=== PATIENT | female | born 1970 | race Caucasian/White ===

== ENCOUNTER → 2016-08-29 | Outpatient (CLI) | payer BC ==
--- NOTE | 2016-08-29 13:21 | REP ---
LUMBOSACRAL SPINE SERIES WITH FLEXION AND EXTENSION: Seven views of the lumbosacral spine performed. There is no compression fracture. There is normal lumbar lordosis with no subluxation. There is no spondylosis of spondylolisthesis. Disc spaces are well preserved. Posterior elements are intact. There is a stent in the region of the right common iliac vessels. IMPRESSION: Negative lumbosacral spine series. Signed by Greg Lacy MD 08/29/2016 03:31 P
== END ==
LOC: M SMT 11:32
PROVIDERS: ATTEND Physician Assistant
DX: M54.5 Low back pain (principal)

== ENCOUNTER → 2016-09-21 | Outpatient (REF) | payer BC ==
[2016-09-21 13:43] LABS: VITAMIN B12 LEVEL 847 PG/ML (247-911)
[2016-09-26 00:06] LABS: Lyme Disease IgG/IgM Antibodie <0.91 ISR (0.00-0.90); Lyme Disease IgM Ab Quantitati <0.80 index (0.00-0.79); SJOGREN'S ANTI SS-A <0.2 AI (0.0-0.9); SJOGREN'S ANTI SS-B <0.2 AI (0.0-0.9)
== END ==
LOC: M LABNEURO 12:58
PROVIDERS: ATTEND Psychiatry & Neurology Neurology
DX: G35 Multiple sclerosis (principal)

== ENCOUNTER → 2017-04-03 | Outpatient (REF) | payer BC | LOC: M LAB REF 17:06 | PROVIDERS: ATTEND Physician Assistant Medical | DX: R30.0 Dysuria (principal) ==

== ENCOUNTER → 2017-05-24 | Outpatient (REF) | payer BC | LOC: M LAB REF 18:49 | PROVIDERS: ATTEND Family Medicine | DX: Z01.419 Encounter for gynecological examination (general) (routine) without abnormal findings (principal); Z11.51 Encounter for screening for human papillomavirus (HPV) ==

== ENCOUNTER → 2018-01-28 | Outpatient (CLI) | payer BC | LOC: M RAD 10:26 | DX: M51.26 Other intervertebral disc displacement, lumbar region (principal) | CPT/HCPCS: 72148 ==

== ENCOUNTER → 2018-09-16 | Outpatient (REF) | payer BC, OTHER, SELFPAY | LOC: M SFHCPLAZ 16:58 | PROVIDERS: ATTEND Dermatology | DX: D48.5 Neoplasm of uncertain behavior of skin (principal) ==

== ENCOUNTER → 2019-03-31 | Outpatient (REF) | payer BC | LOC: M LAB REF 18:43 | PROVIDERS: ATTEND Physician Assistant | DX: N39.0 Urinary tract infection, site not specified (principal) ==

== ENCOUNTER → 2019-09-24 | Outpatient (REF) | payer BC | LOC: M LAB REF 16:41 | PROVIDERS: ATTEND Physician Assistant | DX: N39.0 Urinary tract infection, site not specified (principal) ==

== ENCOUNTER → 2020-12-21 | Outpatient (CLI) | payer SELFPAY ==
[2020-12-21 13:37] LABS: BASO % 0.9 % (0.0-1.0); EOS # 0.4 10^3/uL (0.0-0.5); EOS % 8.2 % (0.0-3.0); HEMATOCRIT 40.7 % (36.0-47.0); HEMOGLOBIN 13.3 g/dl (12.0-15.5); LYMPH # 1.7 10^3/uL (1.5-5.0); LYMPH % 39.8 % (24.0-44.0); MEAN CORPUSCULAR HEMOGLOBIN 31.1 pg (27.0-33.0); MEAN CORPUSCULAR HGB CONC 32.7 g/dl (32.0-36.5); MEAN CORPUSCULAR VOLUME 95.3 fl (80.0-96.0); MONO # 0.4 10^3/uL (0.0-0.8); MONO % 9.2 % (2.0-8.0); NEUTROPHILS # 1.8 10^3/uL (1.5-8.5); NEUTROPHILS % 41.7 % (36.0-66.0); PLATELET COUNT, AUTOMATED 269 10^3/uL (150-450); RED BLOOD COUNT 4.27 10^6/uL (4.00-5.40); WHITE BLOOD COUNT 4.4 10^3/uL (4.0-10.0)
== END ==
LOC: M PLALAB 12:15
PROVIDERS: ATTEND Physician Assistant
DX: R59.0 Localized enlarged lymph nodes (principal)

== ENCOUNTER → 2020-12-28 | Outpatient (REF) | payer BC | LOC: M LAB REF 16:41 | PROVIDERS: ATTEND Physician Assistant | DX: J02.9 Acute pharyngitis, unspecified (principal) ==

== ENCOUNTER → 2021-01-28 | Outpatient (CLI) | payer BC ==
[~2021-01-28] MED LIST: ISOVUE-370 76% 100ML VIAL As Ordered ONE
--- NOTE | 2021-01-28 12:45 | REPVR ---
PROCEDURE INFORMATION: Exam: CT Neck With Contrast Exam date and time: 01/28/2021 11:49 AM Age: 50 years old Clinical indication: Other: Right sided enlarged cervical lymph nodes TECHNIQUE: Imaging protocol: Computed tomography images of the neck with contrast. Radiation optimization: All CT scans at this facility use at least one of these dose optimization techniques: automated exposure control; mA and/or kV adjustment per patient size (includes targeted exams where dose is matched to clinical indication); or iterative reconstruction. Contrast material: ISOVUE 370; Contrast volume: 75 ml; Contrast route: INTRAVENOUS (IV); COMPARISON: No relevant prior studies available. FINDINGS: Nasopharynx: Unremarkable. Oropharynx: Unremarkable. No significant tonsillar enlargement. Hypopharynx: Unremarkable. Larynx: Unremarkable. Normal epiglottis. Retropharyngeal space: Unremarkable. Submandibular/Parotid glands: Normal. Glands are normal in size. Thyroid: Normal. No enlarged or calcified nodules. Lymph nodes: Multiple small nonspecific bilateral cervical chain lymph nodes are present. These do not meet size criteria for pathology. Trachea: Visualized trachea is unremarkable. Lungs: Unremarkable as visualized. Bones/joints: Unremarkable. No acute fracture. Soft tissues: A skin marker is noted along the lateral right face. This is overlying the inferior right parotid gland. No underlying inflammation or mass is seen. IMPRESSION: No acute abnormality. Electronically signed by: Sarath Bond On 01/28/2021 12:45:11 PM
== END ==
LOC: M RAD 11:15
PROVIDERS: ATTEND Physician Assistant
DX: R59.0 Localized enlarged lymph nodes (principal)
CPT/HCPCS: 70491; Q9967

== ENCOUNTER → 2021-03-25 | Outpatient (CLI) | payer BC ==
[2021-03-25 12:09] LABS: BASO # 0.1 10^3/uL (0.0-0.2); BASO % 1.1 % (0.0-1.0); EOS # 0.3 10^3/uL (0.0-0.5); EOS % 6.1 % (0.0-3.0); HEMATOCRIT 42.7 % (36.0-47.0); HEMOGLOBIN 14.3 g/dl (12.0-15.5); LYMPH # 2.2 10^3/uL (1.5-5.0); LYMPH % 40.6 % (24.0-44.0); MEAN CORPUSCULAR HEMOGLOBIN 31.4 pg (27.0-33.0); MEAN CORPUSCULAR HGB CONC 33.5 g/dl (32.0-36.5); MEAN CORPUSCULAR VOLUME 93.8 fl (80.0-96.0); MONO # 0.5 10^3/uL (0.0-0.8); MONO % 9.6 % (2.0-8.0); NEUTROPHILS # 2.3 10^3/uL (1.5-8.5); NEUTROPHILS % 42.2 % (36.0-66.0); PLATELET COUNT, AUTOMATED 239 10^3/uL (150-450); RED BLOOD COUNT 4.55 10^6/uL (4.00-5.40); WHITE BLOOD COUNT 5.4 10^3/uL (4.0-10.0)
[2021-03-25 12:39] LABS: ALBUMIN 3.5 GM/DL (3.2-5.2); ALT/SGPT 24 U/L (12-78); BILIRUBIN,DIRECT < 0.1 MG/DL (0.0-0.2); BILIRUBIN,TOTAL 0.2 MG/DL (0.2-1.0); BLOOD UREA NITROGEN 12 MG/DL (7-18); CALCIUM LEVEL 8.8 MG/DL (8.5-10.1); CARBON DIOXIDE LEVEL 27 MEQ/L (21-32); CHLORIDE LEVEL 114 MEQ/L (98-107); CREATININE FOR GFR 0.78 MG/DL (0.55-1.30); GLOMERULAR FILTRATION RATE > 60.0 (>58); GLUCOSE, FASTING 97 MG/DL (70-100); LIPASE 231 U/L (73-393); POTASSIUM SERUM 3.8 MEQ/L (3.5-5.1); SODIUM LEVEL 145 MEQ/L (136-145); TOTAL PROTEIN 6.8 GM/DL (6.4-8.2)
== END ==
LOC: M LAB 10:29
PROVIDERS: ATTEND Physician Assistant
DX: K92.0 Hematemesis (principal); R10.13 Epigastric pain

== ENCOUNTER → 2021-03-28 | Outpatient (CLI) | payer BC ==
[2021-03-28 11:12] LABS: BASO # 0.1 10^3/uL (0.0-0.2); BASO % 1.2 % (0.0-1.0); EOS # 0.3 10^3/uL (0.0-0.5); EOS % 7.1 % (0.0-3.0); HEMATOCRIT 42.6 % (36.0-47.0); HEMOGLOBIN 14.1 g/dl (12.0-15.5); LYMPH # 1.8 10^3/uL (1.5-5.0); LYMPH % 41.7 % (24.0-44.0); MEAN CORPUSCULAR HEMOGLOBIN 31.3 pg (27.0-33.0); MEAN CORPUSCULAR HGB CONC 33.1 g/dl (32.0-36.5); MEAN CORPUSCULAR VOLUME 94.7 fl (80.0-96.0); MONO # 0.4 10^3/uL (0.0-0.8); NEUTROPHILS # 1.7 10^3/uL (1.5-8.5); PLATELET COUNT, AUTOMATED 238 10^3/uL (150-450); WHITE BLOOD COUNT 4.2 10^3/uL (4.0-10.0)
[2021-03-28 11:47] LABS: ALBUMIN 3.6 GM/DL (3.2-5.2); ALT/SGPT 25 U/L (12-78); BILIRUBIN,DIRECT < 0.1 MG/DL (0.0-0.2); BILIRUBIN,TOTAL 0.2 MG/DL (0.2-1.0); BLOOD UREA NITROGEN 12 MG/DL (7-18); CALCIUM LEVEL 9.1 MG/DL (8.5-10.1); CARBON DIOXIDE LEVEL 26 MEQ/L (21-32); CHLORIDE LEVEL 114 MEQ/L (98-107); CREATININE FOR GFR 0.92 MG/DL (0.55-1.30); GLOMERULAR FILTRATION RATE > 60.0 (>58); GLUCOSE, FASTING 82 MG/DL (70-100); LIPASE 166 U/L (73-393); POTASSIUM SERUM 4.2 MEQ/L (3.5-5.1); SODIUM LEVEL 143 MEQ/L (136-145)
== END ==
LOC: M LAB 09:18
PROVIDERS: ATTEND Physician Assistant
DX: R10.13 Epigastric pain (principal)

== ENCOUNTER → 2021-04-08 | Outpatient (CLI) | payer BC ==
[~2021-04-08] MED LIST changes: +GASTROGRAFIN SOLUTION 30ML (Q9963) As Ordered ONE
--- NOTE | 2021-04-08 15:14 | REPVR ---
PROCEDURE INFORMATION: Exam: CT Abdomen And Pelvis With Contrast Exam date and time: 04/08/2021 1:53 PM Age: 51 years old Clinical indication: Other: Hematemesis, epigastric pain TECHNIQUE: Imaging protocol: Computed tomography of the abdomen and pelvis with contrast. Axial, coronal and sagittal reformatted images were created and reviewed. Radiation optimization: All CT scans at this facility use at least one of these dose optimization techniques: automated exposure control; mA and/or kV adjustment per patient size (includes targeted exams where dose is matched to clinical indication); or iterative reconstruction. Contrast material: ISOVUE 370; Contrast volume: 100 ml; Contrast route: INTRAVENOUS (IV); COMPARISON: MRI-Spine, L.S. without con 01/28/2018 10:51 AM FINDINGS: Lungs: Mild linear stranding and groundglass at the lung bases, likely due to atelectasis and/or scarring. Liver: Scattered subcentimeter low-density hepatic lesions, measuring up to 9 mm in the right hepatic lobe, too small to characterize. Gallbladder and bile ducts: Common bile duct dilatation to approximately 1 cm. Pancreas: Unremarkable. Spleen: Unremarkable. Adrenal glands: Mild hypodense nodular right adrenal thickening, likely secondary to benign hyperplasia or adenomas. Kidneys and ureters: Simple bilateral renal cysts, measuring up to 1.3 cm on the left. 1.4 cm nonobstructing left renal calculus versus parenchymal calcification. No hydronephrosis. Stomach and bowel: Colonic diverticulosis without evidence of diverticulitis. No obstruction. No bowel wall thickening. No pneumatosis. Appendix: Normal. Intraperitoneal space: No free fluid. No organized fluid collection. No free air. Vasculature: Mild atherosclerotic disease. Patent right common iliac artery stent. No aneurysm or dissection. Lymph nodes: No pathologically enlarged lymph nodes. Urinary bladder: Unremarkable as visualized. Reproductive: Unremarkable. Bones/joints: No acute osseous abnormality. Mild degenerative changes. Soft tissues: Unremarkable. IMPRESSION: 1. Common bile duct dilatation to approximately 1 cm. Correlate with LFTs and, if clinically indicated, ERCP or MRCP. 2. Scattered subcentimeter low-density hepatic lesions, measuring up to 9 mm in the right hepatic lobe, too small to characterize. If clinically indicated, MRI may be obtained for further evaluation. 3. Additional findings, as above. COMMENTS: Consistent with the [employer]'s Incidental Findings Committee white paper (J Am Samira Radiol 2018): Any incidental renal lesion less than 1 cm or classified as too small to characterize, or any incidental cystic renal lesion characterized as simple-appearing, is likely benign. No follow-up imaging is recommended for these lesions per consensus recommendations based on imaging criteria. Electronically signed by: Allan Navarro On 04/08/2021 15:14:13 PM
== END ==
LOC: M RAD 12:02
PROVIDERS: ATTEND Internal Medicine Gastroenterology
DX: R10.13 Epigastric pain (principal); K92.0 Hematemesis
CPT/HCPCS: 74177; Q9963; Q9967

== ENCOUNTER → 2021-04-25 | Outpatient (CLI) | payer BC ==
[~2021-04-25] MED LIST changes: +AMLO25TA PO; +CETI10CH PO; +CYAN500T14 PO; +ERGO500029 PO; +EZET10TA21 PO; -GASTROGRAFIN SOLUTION 30ML (Q9963) As Ordered ONE; +HYDR-643 PO; +IRBE300T7 PO; -ISOVUE-370 76% 100ML VIAL As Ordered ONE; +PANT40TA29 PO; +SERT50TA29 PO; +SUCR1TA PO; +TOPI1CAP6 PO; +TRAM50TA2 PO; +WELLTAB40 PO
== END ==
LOC: M LABSMTC 10:02
PROVIDERS: ATTEND Anesthesiology
DX: Z01.818 Encounter for other preprocedural examination (principal); Z11.52 Encounter for screening for COVID-19

== ENCOUNTER 2021-04-29 10:56 | Day surgery (SDC) | payer BC ==
[~2021-04-29] VITALS: Ht 160 cm; Wt 78.0 kg
[~2021-04-29 10:56] MED LIST changes: +NS 1,000 ML IV ONE
--- OUTSIDE RECORDS SUMMARY | 2021-04-29 11:00 | CCD | Continuity of Care Document ---
Author Author Ricarda FULTON D.O Organization Unknown Address [address] [place] [address] Phone [phone] Care Team Providers Care Cellular Equipment Installer Name Role Phone Shae Fulton D.O. AUTM [phone] Lew Murrell M.D. AUTM [phone] Josep Cunningham MD AUTM [phone] Problems Active Problems Provider Date Essential hypertension Shae Fulton D.O. Onset: Tobacco user Shae Fulton D.O. Onset: 2015 Skin sensation disturbance Shae Fulton D.O. Onset: 09/02/2015 Pain in left lower limb Shae Fulton D.O. Onset: Pain in right lower limb Shae Fulton D.O. Onset: 0 09/02/2015 Cough Shae Fulton D.O. Onset: 2015 Obesity Shae Fulton D.O. Onset: 2015 Body mass index 30+ - obesity Shae Fulton D.O. Ons et: 09/16/2015 Hypersomnia, unspecified Shae Fulton D.O. Onset: 0 09/16/2015 Pure hypercholesterolemia Shae Fulton D.O. Onset: 09/16/2015 Peripheral vascular disease Shae Fulton D.O. Onset : 10/20/2015 Muscle pain Shae Fulton D.O. Onset: 2015 Impaired fasting glycemia Shae Fulton D.O. Onset: 04/05/2016 Carpal tunnel syndrome Shae Fulton D.O. Onset: Gastroesophageal reflux disease KEISHA Owens Onset: 07/11/2016 Malaise and fatigue KEISHA Owens Onset: 08/29/2016 Aortic aneurysm hSae Fulton D.O. Onset: 2016 Note: Echo 11/2020: 4.2cm Headache Shae Fulton D.O. Onset: 2016 Low back pain Shae Fulton D.O. Onset: 2016 Thoracic aortic aneurysm without rupture Shae nuno D.O. Onset: 05/30/2017 Note: mild dilatation 4.[address] Murrell following Prediabetes Shae Fulton D.O. Onset: 2017 Spondylolysis Shae Fulton D.O. Onset: 2017 Ascending aorta dilatation Shae Fulton D.O. Onset: 11/29/2018 Social History Type Date Description Comments Sex Unknown Tobacco Use Start: Unknown End: Unknown Quit ETOH Use Currently consumes alcohol 5-6 g lasses per week Recreational Drug Use Denies Drug Use Tobacco Use Start: Unknown End: Patient is a former smoker Smoking Status Reviewed: 01/25/21 Patient is a former smoker Exercise Type/Frequency Does not exercise Sun Exposure Does not use sunscreen Seat Belt/Car Seat Always uses seat belt Allergies and adverse reactions Active Allergies Criticality Reaction | Severity Comments Date Atorvastatin Unable to assess criticality muscle weakness | Moderat e 02/17/2016 Zonisamide Unable to assess criticality Anger, mood changes | Mod erate 10/18/2016 Coconut Unable to assess criticality | Moderate Eczematous D ermatitis 07/03/2019 Inactive Allergies NKDA Unable to assess criticality 08/23/2015 Amlodipine Unable to assess criticality Urticaria 10/20/2015 NKDA Unable to assess criticality 02/17/2016 Medications Active Medications SIG Qnty Indications Ordering Provide r Date Ondansetron HCL 4mg Tablets 1-2 tablets by mouth every 6 hours as needed for nausea 42tabs R10.13 Shae Fulton D.OSima 03/28/2021 Sucralfate 1gm Tablets take one tablet 4 times daily before meals 90tabs Shae Fulton D .O. 03/25/2021 Zyrtec Allergy 10mg Capsules 1 by mouth every day as needed 30caps Shae Fulton D.O. 0 01/25/2021 Wellbutrin XL 300mg Tablets ER 24H R 1 by mouth every day 30tabs Gardenia JaimeOSima 01/25 Zetia 10mg Tablets 1 b y mouth every day 90tabs E78.00 Gardenia JaimeOSima 07/27/2020 Irbesartan 300mg Tablets take 1 tablet by mouth once daily 90tabs Gardenia JaimeOSima 12/10 Sertraline HCL 50mg Tablets 1 by mouth every day 90tabs F41.1 Gardenia JaimeOSima 10/15 Blood Pressure Cuff [facility] blood pressure kit dx: i10, 401.9 dispense:1 prognosis: fair duration: 99 1units Gardenia JaimeOSima 09/17/2018 Naproxen 500mg Tablets Take 1 tablet by mouth twice daily with food 60tabs M51.86 Gardenia JaimeOSima 02/21/2018 Pantoprazole Sodium 40mg Tablets D R take one tablet by mouth twice a day 180tabs Karen Rausch.OSima 07/17/2016 Tramadol HCL 50mg Tablets 1 tablets by mouth twice a day as needed, istop [id number] 60tabs Karen Jaime.OSima 06/22/2016 Wrist Splint/Cock-Up/Right/Canvas/Medium Misc apply to right wrist nightly dx: g56.01 prognosis: fair duration: 99 dispense: 1 G56.01 Shae Fulton D.O. 04/05 Wrist Splint/Cock-Up/Left/Canvas/Medium Misc apply to left wrist nightly dx: g56.02 dispense: 1 prognosis: fa ir G56.02 Gardenia JaimeOSima 04/05/2016 Vitamin B-12 1000mcg Tablets Sub 1 by mouth every day Unknown Aspir-[address] 1 by mouth every day Unknown Topiramate 200mg Tablets take 1 tablet by mouth once daily 90tabs Karen Jaime.O. 000 Amlodipine Besylate 2.5mg Tablets take one tablet by mouth every day 90tabs Karen Jaime.O. Hydroxyzine HCL 10mg Tablets Take 1 tablet by mouth once daily 90tabs Karen Jaime.O. 0 Vitamin D (Ergocalciferol) 1.25mg (18833 Ut) Capsules Take 1 capsule by mouth once a week 12caps Karen Jaime.O. Iron Slow Release 142(45Fe) mg Tab lets ER Unknown Betamethasone Dipropionate 0.05% O intment Apply To Bilateral Hands Sparingly Twice Daily For 2 Weeks Then as Needed For Flares Unknown History Medications Amoxicillin 875mg Tablets 1 cap by mouth twice a day until gone 20tabs J01.90 Gardenia JaimeO . 12/21/2020 - 01/25/2021 Immunizations Description No Information Available Vital Signs Date Vital Result Comment 03/28/2021 8:08am BP Systolic 130 mmHg BP Diastolic 90 mmHg Height 64.1 inches 5'4.10" Weight 177.50 lb BMI (Body Mass Index) 30.4 kg/m2 Heart Rate 84 /min Respiratory Rate 14 /min Body Temperature 97.2 F O2 % BldC Oximetry 99 % Wendel Body Weight 120 lb 03/25/2021 1:13pm BP Systolic 112 mmHg BP Diastolic 82 mmHg Height 64.1 inches 5'4.10" Weight 174.00 lb BMI (Body Mass Index) 29.8 kg/m2 Heart Rate 81 /min Respiratory Rate 20 /min Body Temperature 97.9 F O2 % BldC Oximetry 98 % Wendel Body Weight 120 lb Results Test Acquired Date Facility Test Result H/L Range Note Coronavirus 2019 Nasopharygeal 04/25/2021 [facility] Outpa tient Testing (Registration) [address] [place] [address] [phone] Coronavirus 2019 Nasopharygeal ASSAY INFORMATIO <SEE N OTE> 1 CBC With Differential 03/28/[address] [address] [phone] White Blood Count 4.2 10 Normal 4.0-10.0 Red Blood Count 4.50 10 Normal 4.00-5.40 Hemoglobin 14.1 g/dL Normal 12.0-15.5 Hematocrit 42.6 % Normal 36.0-47.0 Mean Corpuscular Volume 94.7 fl Normal 80.0-96.0 Mean Corpuscular Hemoglobin 31.3 pg Normal 27.0-33.0 Mean Corpuscular HGB Conc 33.1 g/dL Normal 32.0-36.5 Red Cell Distribution Width 15.0 % High 11.5-14.5 Platelet Count, Automated 238 10 Normal 150-450 Neutrophils % 41.0 % Normal 36.0-66.0 Lymph % 41.7 % Normal 24.0-44.0 [place] % 9.0 % High 2.0-8.0 Eos % 7.1 % High 0.0-3.0 Baso % 1.2 % High 0.0-1.0 Immature Granulocyte % 0.0 % Normal 0-3.0 Nucleated Red Blood Cell % 0.0 % Normal 0-0 Neutrophils # 1.7 10 Normal 1.5-8.5 Lymph # 1.8 10 Normal 1.5-5.0 [place] # 0.4 10 Normal 0.0-0.8 Eos # 0.3 10 Normal 0.0-0.5 Baso # 0.1 10 Normal 0.0-0.2 Basic Metabolic Profile 03/28/[address] [address] [phone] Glucose, Fasting 82 mg/dL Normal 70-100 Blood Urea Nitrogen 12 mg/dL Normal 7-18 Creatinine For GFR 0.92 mg/dL Normal 0.55-1.30 Glomerular Filtration Rate > 60.0 Normal >58 2 Sodium Level 143 mEq/L Normal 136-145 Potassium Serum 4.2 mEq/L Normal 3.5-5.1 Chloride Level 114 mEq/L High 98-107 Carbon Dioxide Level 26 mEq/L Normal 21-32 Anion Gap 3 mEq/L Low 8-16 Calcium Level 9.1 mg/dL Normal 8.5-10.1 Laboratory test finding 03/28/[address] [address] [phone] Lipase 166 U/L Normal 73-393 Liver Profile 03/28/2021 [facility] [address] [place] [address] [phone] Ast/Sgot 13 U/L Normal 7-37 Alt/SGPT 25 U/L Normal 12-78 Alkaline Phosphatase 56 U/L Normal 45-117 Bilirubin,Total 0.2 mg/dL Normal 0.2-1.0 Bilirubin,Direct < 0.1 mg/dL Normal 0.0-0.2 Total Protein 7.0 GM/DL Normal 6.4-8.2 Albumin 3.6 GM/DL Normal 3.2-5.2 Albumin/Globulin Ratio 1.1 Low 1.2-2.2 CBC With Differential 03/25/[address] [address] [phone] White Blood Count 5.4 10 Normal 4.0-10.0 Red Blood Count 4.55 10 Normal 4.00-5.40 Hemoglobin 14.3 g/dL Normal 12.0-15.5 Hematocrit 42.7 % Normal 36.0-47.0 Mean Corpuscular Volume 93.8 fl Normal 80.0-96.0 Mean Corpuscular Hemoglobin 31.4 pg Normal 27.0-33.0 Mean Corpuscular HGB Conc 33.5 g/dL Normal 32.0-36.5 Red Cell Distribution Width 14.7 % High 11.5-14.5 Platelet Count, Automated 239 10 Normal 150-450 Neutrophils % 42.2 % Normal 36.0-66.0 Lymph % 40.6 % Normal 24.0-44.0 [place] % 9.6 % High 2.0-8.0 Eos % 6.1 % High 0.0-3.0 Baso % 1.1 % High 0.0-1.0 Immature Granulocyte % 0.4 % Normal 0-3.0 Nucleated Red Blood Cell % 0.0 % Normal 0-0 Neutrophils # 2.3 10 Normal 1.5-8.5 Lymph # 2.2 10 Normal 1.5-5.0 [place] # 0.5 10 Normal 0.0-0.8 Eos # 0.3 10 Normal 0.0-0.5 Baso # 0.1 10 Normal 0.0-0.2 Basic Metabolic Profile 03/25/[address] [address] [phone] Glucose, Fasting 97 mg/dL Normal 70-100 Blood Urea Nitrogen 12 mg/dL Normal 7-18 Creatinine For GFR 0.78 mg/dL Normal 0.55-1.30 Glomerular Filtration Rate > 60.0 Normal >58 3 Sodium Level 145 mEq/L Normal 136-145 Potassium Serum 3.8 mEq/L Normal 3.5-5.1 Chloride Level 114 mEq/L High 98-107 Carbon Dioxide Level 27 mEq/L Normal 21-32 Anion Gap 4 mEq/L Low 8-16 Calcium Level 8.8 mg/dL Normal 8.5-10.1 Liver Profile 03/25/2021 [facility] [address] [place] [address] [phone] Ast/Sgot 13 U/L Normal 7-37 Alt/SGPT 24 U/L Normal 12-78 Alkaline Phosphatase 54 U/L Normal 45-117 Bilirubin,Total 0.2 mg/dL Normal 0.2-1.0 Bilirubin,Direct < 0.1 mg/dL Normal 0.0-0.2 Total Protein 6.8 GM/DL Normal 6.4-8.2 Albumin 3.5 GM/DL Normal 3.2-5.2 Albumin/Globulin Ratio 1.1 Low 1.2-2.2 Laboratory test finding 03/25/[address] [address] [phone] Lipase 231 U/L Normal 73-393 Type & Screen -Incl Blood Type,Randy,AB SC 03/25/[address] [address] [phone] Blood Type O POSITIVE Normal AB Screen (Indirect Teri)Vis POSITIVE Normal Laboratory test finding 03/25/[address] [address] [phone] Antibody Identification Anti-Jka Normal Laboratory test finding 12/28/2020 [facility] Outpatient T esting (Registration) [address] [place] [address] [phone] Throat Culture FULL REPORT IN L <SEE NOTE> Normal 4 Laboratory test finding 12/21/2020 [facility] Outpatient T esting (Registration) [address] [place] [address] [phone] LDH Lactate Dehydrogenase 136 U/L Normal 84-246 CBC With Differential 12/21/2020 [facility] Outpatient Constance ting (Registration) [address] [place] [address] [phone] White Blood Count 4.4 10 Normal 4.0-10.0 Red Blood Count 4.27 10 Normal 4.00-5.40 Hemoglobin 13.3 g/dL Normal 12.0-15.5 Hematocrit 40.7 % Normal 36.0-47.0 Mean Corpuscular Volume 95.3 fl Normal 80.0-96.0 Mean Corpuscular Hemoglobin 31.1 pg Normal 27.0-33.0 Mean Corpuscular HGB Conc 32.7 g/dL Normal 32.0-36.5 Red Cell Distribution Width 14.5 % Normal 11.5-14.5 Platelet Count, Automated 269 10 Normal 150-450 Neutrophils % 41.7 % Normal 36.0-66.0 Lymph % 39.8 % Normal 24.0-44.0 Beaufort % 9.2 % High 2.0-8.0 Eos % 8.2 % High 0.0-3.0 Baso % 0.9 % Normal 0.0-1.0 Immature Granulocyte % 0.2 % Normal 0-3.0 Nucleated Red Blood Cell % 0.0 % Normal 0-0 Neutrophils # 1.8 10 Normal 1.5-8.5 Lymph # 1.7 10 Normal 1.5-5.0 [place] # 0.4 10 Normal 0.0-0.8 Eos # 0.4 10 Normal 0.0-0.5 Baso # 0.0 10 Normal 0.0-0.2 1 ASSAY INFORMATION: Real Time RT-PCR NOTE: The COVID-19 assay has been cleared by the U.S. Food and Drug Administration under the Emergency Use Authorization (EUA). Liquid[facility] [employer] and [facility] are designated as high complexity laboratories by the Clinical Laboratory Improvement Amendments of 1988(CLIA) and are qualified to perform this test. Not Detected 2 Units are mL/min/1.73 m2 Chronic Kidney Disease Staging per NKF: Stage I & II GFR >=60 Normal to Mildly Decreased Stage III GFR 30-59 Moderately Decreased Stage IV GFR 15-29 Severely Decreased Stage V GFR <15 Very Little GFR Left ESRD GFR <15 on ALLERGY NURSE 3 Units are mL/min/1.73 m2 Chronic Kidney Disease Staging per NKF: Stage I & II GFR >=60 Normal to Mildly Decreased Stage III GFR 30-59 Moderately Decreased Stage IV GFR 15-29 Severely Decreased Stage V GFR <15 Very Little GFR Left ESRD GFR <15 on ALLERGY NURSE 4 FULL REPORT IN LAB NOTES (eC W and [facility]). NORMAL ELIAZAR PRESENT Procedures Date Code Description Status 03/28/2021 25987 Office/Outpatient Established Lo w MDM 20-29 Min Completed 03/25/2021 97499 Office/Outpatient Established Mo d MDM 30-39 Min Completed 01/25/2021 55387 Office/Outpatient Established Mo d MDM 30-39 Min Completed 12/28/2020 38624 Office/Outpatient Established Lo w MDM 20-29 Min Completed 12/21/2020 01911 Office/Outpatient Established Mo d MDM 30-39 Min Completed Medical Devices Description No Information Available Encounters Type Date Location Provider Dx Diagnosis Office Visit 03/28/2021 8:00a Family Medicine [facility] KEISHA Darden R10.13 Epigastric pain Office Visit 03/25/2021 1:10p Family [facility] Mikie Fulton D.O. K92.0 Hematemesis R10.13 Epigastric pain Office Visit 01/25/2021 10:40a Family [facility] KEISHA Owens R59.0 Localized enlarged lymph nod es F17.210 Nicotine dependence, cigaret consatnce, uncomplicated I10 Essential (primary) hyperten bert F41.1 Generalized anxiety disorder R73.03 Prediabetes E78.00 Pure hypercholesterolemia, u nspecified Office Visit 12/28/2020 3:20p [facility] KEISHA Owens J02.9 Acute pharyngitis, unspecifi ed Office Visit 12/21/2020 11:20a [facility] KEISHA Owens R59.0 Localized enlarged lymph nod es J01.90 Acute sinusitis, unspecified Assessments Date Code Description Provider 03/28/2021 R10.13 Epigastric pain KEISHA Simpson 03/25/2021 K92.0 Hematemesis Shae stevens, D.O. 03/25/2021 R10.13 Epigastric pain Shae stevens, D.O. 01/25/2021 R59.0 Localized enlarged lymph nodes S KEISHA Carmichael 01/25/2021 F17.210 Nicotine dependence, cigarettes, uncomplicated KEISHA Owens 01/25/2021 I10 Essential (primary) hypertension KEISHA Owens 01/25/2021 F41.1 Generalized anxiety disorder KEISHA Messina 01/25/2021 R73.03 Prediabetes KEISHA Owens 01/25/2021 E78.00 Pure hypercholesterolemia, unspe cified KEISHA Owens 12/28/2020 J02.9 Acute pharyngitis, unspecified S KEISHA Carmichael 12/21/2020 R59.0 Localized enlarged lymph nodes KEISHA Toscano 12/21/2020 J01.90 Acute sinusitis, unspecified KEISHA Messina Plan of Treatment Future Appointment(s):* 05/18/2021 1:45 pm - KEISHA Simpson at [facility] Functional Status Description No Information Available Mental Status Description No Information Available Referrals Refer to Dr Reason for Referral Status Appt Date Josep Cunningham MD This is a 51 year old female with epigastric pain for 1 month. 3 episodes yesterday of dark colored foul smelling emesis. I have started treatment for upper GI bleed in an attempt to keep her out of the ER but if she has another episode of emesisis or melena, she will go to the ER over the weekend. Please evaluate and treat urgently Sent 03/31/[address] [place], [place] [address] [phone]
--- OUTSIDE RECORDS SUMMARY | 2021-04-29 11:00 | CCD | Continuity of Care Document ---
Author Author Ricarda MCCALL MD Organization Unknown Address [address] [place] [address] Phone [phone] Care Team Providers Care Tong Carrier Name Role Phone Shae Hsieh D.O. AUTM [phone] Problems Description No Information Available Social History Type Date Description Comments Sex Unknown ETOH Use 8 per month Tobacco Use Start: Unknown Smokes 1 Pack A Day Allergies and adverse reactions Active Allergies Criticality Reaction | Severity Comments Date Zonisamide Unable to assess criticality 03/31/2021 Atorvastatin Unable to assess criticality 03/31/2021 Medications Active Medications SIG Qnty Indications Ordering Provide r Date Miralax 17GM/Scoop Powder use as directed see dr mccall colon preparation instructions 510gm Brian id MD Wilber 03/31/2021 Milk Of Magnesia 7.75% Suspension take 45 milliliters by mouth about 1-2 days before colonoscopy prep 360ml Damian Mccall MD 03/31/2021 Erythromycin 2% Gel Unknown Betamethasone Dipropionate 0.05% Cream Unknown Bupropion Hydrochloride ER (XL) 300mg Tablets ER 24HR take 1 tablet by mouth once daily. starting week 2 Unknown Sucralfate 1gm Tablets take 1 tablet by mouth twice daily.(may dissolve in warm water if you have trouble swallowing) Unknown Zyrtec Allergy 10mg Tablets 1 tablet daily for 30 days Unknown Nasacort Allergy 24HR 55mcg/Act Ae rosol 2 sprays to each nostril daily Unknown Ezetimibe 10mg Tablets Unknown Amlodipine Besylate 10mg Tablets Unknown Tizanidine HCL 4mg Tablets Unknown Vitamin D2 400Unit Tablets d2 50,000 cap Unknown Irbesartan 300mg Tablets 1 by mouth every day Unknown Pantoprazole Sodium 40mg Tablets D R twice daily -- one tablet in morning 1/2 hour before breakfast and one tablet prior to bedtime. total course 3 months. Unknown Hydroxyzine HCL 10mg Tablets 1 by mouth every day Unknown Topiramate 200mg Tablets Unknown Sertraline HCL 50mg Tablets Unknown Vitamin B-12 1000mcg Tablets 1 by mouth every day Unknown Iron (Ferrous Sulfate) 325(65Fe) mg Tablets sun. sun. sun. Unknown Immunizations Description No Information Available Vital Signs Date Vital Result Comment 03/31/2021 2:56pm BP Systolic 132 mmHg BP Diastolic 83 mmHg Height 64 inches 5'4" Weight 176.00 lb BMI (Body Mass Index) 30.2 kg/m2 [place] Body Weight 120 lb Weight 79.834 kg BSA (Body Surface Area) 1.85 m2 Results Description No Information Available Procedures Date Code Description Status 03/31/2021 67167 Office/Outpatient New Moderate M DM 45-59 Minutes Completed Medical Devices Description No Information Available Encounters Type Date Location Provider Dx Diagnosis Office Visit 03/31/2021 2:30p [facility] Gastroenterology [facility] Damian Mccall MD R10.13 Epigastric pain R11.0 Nausea R19.4 Change in bowel habit K92.0 Hematemesis Assessments Date Code Description Provider 03/31/2021 R10.13 Epigastric pain Damian Mccall MD 03/31/2021 R11.0 Nausea Damian Mccall MD 03/31/2021 R19.4 Change in bowel habit Damian padilla MD 03/31/2021 K92.0 Hematemesis Damian Mccall MD Plan of Treatment 03/31/2021 - Damian Mccall MD* R10.13 Epigastric pain * R11.0 Nausea * R19.4 Change in bowel habit * K92.0 Hematemesis * * New Xrays:* CT Abdomen And Pelvis W Contrast, Ordered: 03/31/21 * New Orders:* EGD and Colonoscopy, Ordered: 03/31/21 * Recommendations:* EGD Continue Pi and sucralfate Check CT A/P has had 4-6 month history of nausea/dyspepsia/Abdominal pain Functional Status Description No Information Available Mental Status Description No Information Available Referrals Refer to Reason for Referral Status Appt Date Damian Mccall M.D. HEMATEMESIS / EPIGASTRIC PAIN Scheduled 03/31/2021 [facility], Gastroenterology [address], [address] [place] [address] [phone]
--- OUTSIDE RECORDS SUMMARY | 2021-04-29 11:00 | CCD | Continuity of Care Document ---
Author Author Ricarda MCCALL MD Organization Unknown Address [address] [place] [address] Phone [phone] Care Team Providers Care Corn Crop Supervisor Name Role Phone Shae Hsieh D.O. AUTM Problems Description No Information Available Social History [...] lb BMI (Body Mass Index) 30.2 kg/m2 [place] Body Weight 120 lb Weight 79.834 kg BSA (Body Surface Area) 1.85 m2 Results Description No Information Available Procedures Date Code Description Status 03/31/2021 20299 Office/Outpatient New Moderate M DM 45-59 Minutes Completed Medical Devices Description No Information Available Encounters Type Date Location Provider Dx Diagnosis Office Visit 03/31/2021 2:30p [facility] Gastroenterology [facility] ctice Damian Mccall MD R10.13 Epigastric pain [...] M.D. HEMATEMESIS / EPIGASTRIC PAIN Scheduled 03/31/2021 [facility], Gastroenterology [address], [address] [place] [address] [phone]
--- OUTSIDE RECORDS SUMMARY | 2021-04-29 11:01 | CCD | Continuity of Care Document ---
Author Author Ricarda DOWNEY PA Organization Unknown Address [address] [place] [address] 6 [address] [place] [address] Phone [phone] Care Team Providers Care Continuous Mining Operator Name Role Phone Shae Hsieh D.O. AUTM [phone] Lew Murrell M.D. AUTM [phone] Problems Active Problems Provider Date Essential hypertension Shae Hsieh D.O. Onset: Tobacco user Shae Hsieh D.O. Onset: 2015 Skin sensation disturbance Shae Hsieh D.O. Onset: 09/02/2015 Pain in left lower limb Shae Hsieh D.O. Onset: Pain in right lower limb Shae Hsieh D.O. Onset: 0 09/02/2015 Cough Shae Hsieh D.O. Onset: 2015 Obesity Shae Hsieh D.O. Onset: 2015 Body mass index 30+ - obesity Shae Hsieh D.O. Ons et: 09/16/2015 Hypersomnia, unspecified Shae Hsieh D.O. Onset: 0 09/16/2015 Pure hypercholesterolemia Shae Hsieh D.O. Onset: 09/16/2015 Peripheral vascular disease Shae Hsieh D.O. Onset : 10/20/2015 Muscle pain Shae Hsieh D.O. Onset: 2015 Impaired fasting glycemia Shae Hsieh D.O. Onset: 04/05/2016 Carpal tunnel syndrome Shae Hsieh D.O. Onset: Gastroesophageal reflux disease KEISHA Owens Onset: 07/11/2016 Malaise and fatigue KEISHA Owens Onset: 08/29/2016 Aortic aneurysm Shae Hsieh D.O. Onset: 2016 Note: Echo 11/2020: 4.2cm Headache Shae Hsieh D.O. Onset: 2016 Low back pain Shae Hsieh D.O. Onset: 2016 Thoracic aortic aneurysm without rupture Shae nuno D.O. Onset: 05/30/2017 Note: mild dilatation 4.[address] Murrell following Prediabetes Shae Hsieh D.O. Onset: 2017 Spondylolysis Shae Hsieh D.O. Onset: 2017 Ascending aorta dilatation Shae Hsieh D.O. Onset: 11/29/2018 Social History Type Date [...] Seat Belt/Car Seat Always uses seat belt Allergies, Adverse Reactions, Alerts Active Allergies Criticality Reaction | Severity Comments [...] SIG Qnty Indications Ordering Provide r Date Wellbutrin XL 300mg Tablets ER 24H R 1 by mouth every day 30tabs Shae Hsieh D.O. 01/25 Zyrtec Allergy 10mg Capsules 1 by mouth every day as needed 30caps Shae Hsieh D.O. 0 01/25/2021 Zetia 10mg Tablets 1 b y mouth every day 90tabs E78.00 Shae Hsieh D.O. 07/27/2020 Irbesartan 300mg Tablets take 1 tablet by mouth once daily 90tabs Shae Hsieh D.O. 12/10 Sertraline HCL 50mg Tablets 1 by mouth every day 90tabs F41.1 Karen Jaime.O. 10/15 Blood Pressure Cuff [facility] blood pressure kit dx: i10, 401.9 dispense:1 prognosis: fair duration: 99 1units Shae Hsieh D.O. 09/17/2018 Naproxen 500mg Tablets Take 1 tablet by mouth twice daily with food 60tabs M51.86 Shea Hsieh D.O. 02/21/2018 Pantoprazole Sodium 40mg Tablets D R take one tablet by mouth daily 90tabs Karen Jaime.O. 07/17/2016 Tramadol HCL 50mg Tablets 1 tablets by mouth twice a day as needed, istop [id number] 60tabs Shae Hsieh D.O. 06/22/2016 Wrist Splint/Cock-Up/Right/Canvas/Medium Misc apply to right wrist nightly dx: g56.01 prognosis: fair duration: 99 dispense: 1 G56.01 Karen Jaime.O. 04/05 Wrist Splint/Cock-Up/Left/Canvas/Medium Misc apply to left wrist nightly dx: g56.02 dispense: 1 prognosis: fa ir G56.02 Shae Hsieh D.O. 04/05/2016 Vitamin B-12 1000mcg Tablets Sub 1 by mouth every day Unknown Betamethasone Dipropionate 0.05% O intment Apply To Bilateral Hands Sparingly Twice Daily For 2 Weeks Then as Needed For Flares Unknown Nicoderm CQ 21mg/24HR Patches 24HR apply 1 patch transdermally every 24 hours x 4 weeks 28units [place] JaimeO. Iron Slow Release 142(45Fe) mg Tab lets ER Unknown Vitamin D (Ergocalciferol) 1.25mg (34646 Ut) Capsules Take 1 capsule by mouth once a week 12caps Karen Jaime.O. Hydroxyzine HCL 10mg Tablets Take 1 tablet by mouth once daily 90tabs Karen Jaime.O. 0 Amlodipine Besylate 2.5mg Tablets take one tablet by mouth every day 90tabs Karen Jaime.O. Topiramate 200mg Tablets Take 1 tablet by mouth once daily 90tabs Karen Jaime.O. Aspir-[address] 1 by mouth every day Unknown History Medications Amoxicillin 875mg Tablets 1 cap by mouth twice a day until gone 20tabs J01.90 Karen Jaime.O . 12/21/2020 - 01/25/2021 Nicoderm CQ 21mg/24HR Patches 24HR apply 1 patch transdermally every 24 hours x 6 weeks qs Karen Zhang.O. 08/04/2020 - 10/08/2020 Wellbutrin SR 150mg Tablets ER 12H R one tablet for 3 days then one tablet twice daily 57tabs Karen Jamie.O. 08/04/2020 - 01/25/2021 Immunizations Description No Information Available Vital Signs Date Vital Result Comment 01/25/2021 10:46am BP Systolic 124 mmHg BP Diastolic 82 mmHg Height 64.1 inches 5'4.10" Weight 173.00 lb BMI (Body Mass Index) 29.6 kg/m2 Heart Rate 73 /min Body Temperature 97.0 F O2 % BldC Oximetry 98 % [place] Body Weight 120 lb 12/28/2020 3:14pm BP Systolic 130 mmHg BP Diastolic 80 mmHg Height 64.1 inches 5'4.10" Heart Rate 87 /min Respiratory Rate 14 /min Body Temperature 97.6 F O2 % BldC Oximetry 98 % [place] Body Weight 120 lb Results Test Acquired Date Facility Test Result H/L Range Note Laboratory test finding 12/28/2020 [facility] Outpatient T esting (Registration) [address] [place] [address] [phone] Throat Culture FULL REPORT IN L <SEE NOTE> Normal 1 Laboratory test finding 12/21/2020 [facility] Outpatient T esting (Registration) [address] [place] [address] [phone] LDH Lactate Dehydrogenase 136 U/L Normal 84-246 CBC With Differential 12/21/2020 [facility] Outpatient Constance ting (Registration) [address] [place] [address] [phone] White Blood Count 4.4 10 Normal 4.0-10.0 [...] 36.0-66.0 Lymph % 39.8 % Normal 24.0-44.0 [place] % 9.2 % High 2.0-8.0 Eos % 8.2 % High 0.0-3.0 Baso % 0.9 % Normal 0.0-1.0 Immature Granulocyte % 0.2 % Normal 0-3.0 Nucleated Red Blood Cell % 0.0 % Normal 0-0 Neutrophils # 1.8 10 Normal 1.5-8.5 Lymph # 1.7 10 Normal 1.5-5.0 [place] # 0.4 10 Normal 0.0-0.8 Eos # 0.4 10 Normal 0.0-0.5 Baso # 0.0 10 Normal 0.0-0.2 1 FULL REPORT IN LAB NOTES (eC W and Medent). NORMAL ELIAZAR PRESENT Procedures Date Code Description Status 01/25/2021 60447 Office/Outpatient Established Mo d MDM 30-39 Min Completed 12/28/2020 76301 Office/Outpatient Established Lo w MDM 20-29 Min Completed 12/21/2020 95026 Office/Outpatient Established Mo d MDM 30-39 Min Completed 10/20/2020 47537 Office/Outpatient Established Lo w MDM 20-29 Min Completed Medical Devices Description No Information Available Encounters Type Date Location Provider Dx Diagnosis Office Visit 01/25/2021 10:40a Family Medicine [facility] KEISHA Owens R59.0 Localized enlarged lymph nod es F17.210 Nicotine dependence, cigaret constance, uncomplicated I10 Essential (primary) hyperten bert F41.1 Generalized anxiety disorder R73.03 Prediabetes E78.00 Pure hypercholesterolemia, u nspecified Office Visit 12/28/2020 3:20p Family [facility] KEISHA Owens J02.9 Acute pharyngitis, unspecifi ed Office Visit 12/21/2020 11:20a Family [facility] KEISHA Owens R59.0 Localized enlarged lymph nod es J01.90 Acute sinusitis, unspecified Office Visit 10/20/2020 8:20a [facility] KEISHA Owens D68.318 Oth hemorrhagic disord d/t i ntrns circ anticoag,antib,inhib Z12.31 Encntr screen mammogram for malignant neoplasm of breast Assessments Date Code Description Provider 01/25/2021 R59.0 Localized enlarged lymph nodes S [...] 12/21/2020 J01.90 Acute sinusitis, unspecified KEISHA Messina 10/20/2020 D68.318 Other hemorrhagic di sorder due to intrinsic circulating anticoagulants, antibodies, or inhibitors KEISHA Owens 10/20/2020 Z12.31 Encounter for screen ing mammogram for malignant neoplasm of breast KEISHA Owens Plan of Treatment Future Appointment(s):* 04/28/2021 1:00 pm - KEISHA Owens at [facility] 01/25/2021 - EKISHA Owens* R59.0 Localized enlarged lymph nodes* Comments:* Stable currently. Come in when your symptoms worsen for repeat evaluation. In the meantime, consider using lemon drops when this occurs as this may be a salivary gland issue. We will check a CT as well. * F17.210 Nicotine dependence, cigarettes, uncomplicated* Comments:* We will call in your step 1 nicotine patches. Call when those are complete to use step 2 patches. Do not smoke when using patches. * I10 Essential (primary) hypertension* New Labs:* Comprehensive Metabolic Profil, Scheduled: 04/29/21 * CBC With Differential, Scheduled: 04/29/21 * Comments:* Blood pressure well controlled today. Continue medications as prescribed. * F41.1 Generalized anxiety disorder* Comments:* Stable with the addition of medication. Call for any concerns. * R73.03 Prediabetes* New Labs:* Hemoglobin A1c, Scheduled: 04/29/21 * Comments:* Try to make good dietary choices, and we will check labs before you return. * E78.00 Pure hypercholesterolemia, unspecified* New Labs:* Lipid Panel, Scheduled: 04/29/21 * FT4&TSH Panel, Scheduled: 04/29/21 * Comments:* We will check labs to evaluate further. Functional Status Description No Information Available Mental Status Description No Information Available Referrals Description No Information Available
--- OUTSIDE RECORDS SUMMARY | 2021-04-29 11:01 | CCD | Continuity of Care Document ---
Author Author Ricarda BULLARD PA Organization [place] [address] Phone [phone] Care Team Providers Care Mica Patcher Name Role Phone Shae Hsieh D.O. AUTM Lew Murrell M.D. AUTM [phone] Josep Cunningham MD AUTM [phone] Problems Active Problems Provider Date Essential hypertension Shae Hsieh D.O. Onset: Tobacco user Shae Hsieh D.O. Onset: 2015 Skin sensation disturbance Shae Hsieh D.O. Onset: 09/02/2015 Pain in left lower limb Shae Hsieh D.O. Onset: Pain in right lower limb Shae Hsieh D.O. Onset: 0 09/02/2015 Cough Karen Jaime.Jo Onset: 2015 Obesity Shae Hsieh D.O. Onset: [...] D.O. Onset: 2016 Low back pain Shae Hiseh D.O. Onset: 2016 Thoracic aortic aneurysm without [...] as needed for nausea 42tabs R10.13 Shae Hsieh D.O. 03/28/2021 Sucralfate 1gm Tablets take one tablet 4 times daily before meals 90tabs Shae Hsieh D .O. 03/25/2021 Zyrtec Allergy 10mg Capsules 1 by mouth every day as needed 30caps Shae Hsieh D.O. 0 01/25/2021 Wellbutrin XL 300mg Tablets ER 24H R 1 by mouth every day 30tabs Karen Jaime.O. 01/25 Zetia 10mg Tablets 1 b y mouth every day 90tabs E78.00 Karen Jaime.O. 07/27/2020 Irbesartan 300mg Tablets take 1 tablet by mouth once daily 90tabs Karen Jaime.O. 12/10 Sertraline HCL 50mg Tablets 1 by mouth every day 90tabs F41.1 Shae Hsieh D.O. 10/15 Blood Pressure Cuff [facility] blood pressure kit dx: i10, 401.9 dispense:1 prognosis: fair duration: 99 1units Shae Hsieh D.O. 09/17/2018 Naproxen 500mg Tablets Take 1 tablet by mouth twice daily with food 60tabs M51.86 Shae Hsieh D.O. 02/21/2018 Pantoprazole Sodium 40mg Tablets D R take one tablet by mouth twice a day 180tabs Shae stevens D.O. 07/17/2016 Tramadol HCL 50mg Tablets 1 tablets by mouth twice a day as needed, istop [id number] 60tabs Karen Jaime.O. 06/22/2016 Wrist Splint/Cock-Up/Right/Canvas/Medium Misc apply to right [...] Karen Jaime.O. 0 Vitamin D (Ergocalciferol) 1.25mg (34736 Ut) Capsules Take 1 capsule by mouth once a week 12caps Gardenia JaimeO. Iron Slow Release 142(45Fe) mg [...] F O2 % BldC Oximetry 99 % [place] Body Weight 120 lb 03/25/2021 1:13pm BP Systolic 112 mmHg BP Diastolic 82 mmHg Height 64.1 inches 5'4.10" Weight 174.00 lb BMI (Body Mass Index) 29.8 kg/m2 Heart Rate 81 /min Respiratory Rate 20 /min Body Temperature 97.9 F O2 % BldC Oximetry 98 % [place] Body Weight 120 lb Results Test Acquired Date Facility Test Result H/L Range Note CBC With Differential 03/28/[address] [address] [phone] White Blood Count 4.2 10 Normal 4.0-10.0 [...] 36.0-66.0 Lymph % 41.7 % Normal 24.0-44.0 [place] % 9.0 % High 2.0-8.0 Eos % 7.1 % High 0.0-3.0 Baso % 1.2 % High 0.0-1.0 Immature Granulocyte % 0.0 % Normal 0-3.0 Nucleated Red Blood Cell % 0.0 % Normal 0-0 Neutrophils # 1.7 10 Normal 1.5-8.5 Lymph # 1.8 10 Normal 1.5-5.0 [place] # 0.4 10 Normal 0.0-0.8 Eos # 0.3 10 Normal 0.0-0.5 Baso # 0.1 10 Normal 0.0-0.2 Basic Metabolic Profile 03/28/[address] [address] [phone] Glucose, Fasting 82 mg/dL Normal 70-100 Blood Urea Nitrogen 12 mg/dL Normal 7-18 Creatinine For GFR 0.92 mg/dL Normal 0.55-1.30 Glomerular Filtration Rate > 60.0 Normal >58 1 Sodium Level 143 mEq/L Normal 136-145 Potassium Serum 4.2 mEq/L Normal 3.5-5.1 Chloride Level 114 mEq/L High 98-107 Carbon Dioxide Level 26 mEq/L Normal 21-32 Anion Gap 3 mEq/L Low 8-16 Calcium Level 9.1 mg/dL Normal 8.5-10.1 Laboratory test finding 03/28/[address] [id number] [phone] Lipase 166 U/L Normal 73-393 Liver Profile 03/28/2021 [facility] nter [address] [place] [address] [phone] Ast/Sgot 13 U/L Normal 7-37 Alt/SGPT 25 U/L Normal 12-78 Alkaline Phosphatase 56 U/L Normal 45-117 Bilirubin,Total 0.2 mg/dL Normal 0.2-1.0 Bilirubin,Direct < 0.1 mg/dL Normal 0.0-0.2 Total Protein 7.0 GM/DL Normal 6.4-8.2 Albumin 3.6 GM/DL Normal 3.2-5.2 Albumin/Globulin Ratio 1.1 Low 1.2-2.2 CBC With Differential 03/25/[address] [address] [phone] White Blood Count 5.4 10 Normal 4.0-10.0 [...] 36.0-66.0 Lymph % 40.6 % Normal 24.0-44.0 [place] % 9.6 % High 2.0-8.0 Eos % 6.1 % High 0.0-3.0 Baso % 1.1 % High 0.0-1.0 Immature Granulocyte % 0.4 % Normal 0-3.0 Nucleated Red Blood Cell % 0.0 % Normal 0-0 Neutrophils # 2.3 10 Normal 1.5-8.5 Lymph # 2.2 10 Normal 1.5-5.0 [place] # 0.5 10 Normal 0.0-0.8 Eos # 0.3 10 Normal 0.0-0.5 Baso # 0.1 10 Normal 0.0-0.2 Basic Metabolic Profile 03/25/[address] [id number] [phone] Glucose, Fasting 97 mg/dL Normal 70-100 Blood Urea Nitrogen 12 mg/dL Normal 7-18 Creatinine For GFR 0.78 mg/dL Normal 0.55-1.30 Glomerular Filtration Rate > 60.0 Normal >58 2 Sodium Level 145 mEq/L Normal 136-145 Potassium Serum 3.8 mEq/L Normal 3.5-5.1 Chloride Level 114 mEq/L High 98-107 Carbon Dioxide Level 27 mEq/L Normal 21-32 Anion Gap 4 mEq/L Low 8-16 Calcium Level 8.8 mg/dL Normal 8.5-10.1 Liver Profile 03/25/2021 [facility] nter [address] [place] [address] [phone] Ast/Sgot 13 U/L Normal 7-37 Alt/SGPT 24 U/L Normal 12-78 Alkaline Phosphatase 54 U/L Normal 45-117 Bilirubin,Total 0.2 mg/dL Normal 0.2-1.0 Bilirubin,Direct < 0.1 mg/dL Normal 0.0-0.2 Total Protein 6.8 GM/DL Normal 6.4-8.2 Albumin 3.5 GM/DL Normal 3.2-5.2 Albumin/Globulin Ratio 1.1 Low 1.2-2.2 Laboratory test finding 03/25/[address] [id number] [phone] Lipase 231 U/L Normal 73-393 Type & Screen -Incl Blood Type,Randy,AB SC 03/25/[address] 1300274 [phone] Blood Type O POSITIVE Normal AB Screen (Indirect Teri)Vis POSITIVE Normal Laboratory test finding 03/25/2021 [facility] [address] [place] [address] [phone] Antibody Identification Anti-Jka Normal Laboratory test finding 12/28/2020 [facility] Outpatient T esting (Registration) [address] [place] [address] [phone] Throat Culture FULL REPORT IN L <SEE NOTE> Normal 3 Laboratory test finding 12/21/2020 [facility] Outpatient T esting (Registration) [address] [place] [address] [phone] LDH Lactate Dehydrogenase 136 U/L Normal 84-246 CBC With Differential 12/21/2020 [facility] Outpatient Constance ting (Registration) [address] [place] [address] [phone] White Blood Count 4.4 10 Normal 4.0-10.0 [...] 36.0-66.0 Lymph % 39.8 % Normal 24.0-44.0 [place] % 9.2 % High 2.0-8.0 Eos % 8.2 % High 0.0-3.0 Baso % 0.9 % Normal 0.0-1.0 Immature Granulocyte % 0.2 % Normal 0-3.0 Nucleated Red Blood Cell % 0.0 % Normal 0-0 Neutrophils # 1.8 10 Normal 1.5-8.5 Lymph # 1.7 10 Normal 1.5-5.0 [place] # 0.4 10 Normal 0.0-0.8 Eos # 0.4 10 Normal 0.0-0.5 Baso # 0.0 10 Normal 0.0-0.2 1 Units are mL/min/1.73 m2 Chronic Kidney Disease Staging per NKF: Stage I & II GFR >=60 Normal to Mildly Decreased Stage III GFR 30-59 Moderately Decreased Stage IV GFR 15-29 Severely Decreased Stage V GFR <15 Very Little GFR Left ESRD GFR <15 on SHIPPER AND RECEIVING 2 Units are mL/min/1.73 m2 Chronic Kidney Disease Staging per NKF: Stage I & II GFR >=60 Normal to Mildly Decreased Stage III GFR 30-59 Moderately Decreased Stage IV GFR 15-29 Severely Decreased Stage V GFR <15 Very Little GFR Left ESRD GFR <15 on SHIPPER AND RECEIVING 3 FULL REPORT IN LAB NOTES (eC W and Medent). NORMAL ELIAZAR PRESENT Procedures Date Code Description Status 03/28/2021 67193 Office/Outpatient Established Lo w MDM 20-29 Min Completed 03/25/2021 59655 Office/Outpatient Established Mo d MDM 30-39 Min Completed 01/25/2021 68542 Office/Outpatient Established Mo d MDM 30-39 Min Completed 12/28/2020 04399 Office/Outpatient Established Lo w MDM 20-29 Min Completed 12/21/2020 05780 Office/Outpatient Established Mo d MDM 30-39 Min Completed 10/20/2020 89953 Office/Outpatient Established Lo w MDM 20-29 Min Completed Medical Devices Description No Information Available Encounters Type Date Location Provider Dx Diagnosis Office Visit 03/28/2021 8:00a Family Medicine [facility] KEISHA Simpson R10.13 Epigastric pain Office Visit 03/25/2021 1:10p Family [facility] Shae Hsieh D.O. K92.0 Hematemesis R10.13 Epigastric pain Office Visit 01/25/2021 10:40a Family Medicine [facility] KEISHA Owens R59.0 Localized enlarged lymph nod es F17.210 Nicotine dependence, cigaret constance, uncomplicated I10 Essential (primary) hyperten bert F41.1 Generalized anxiety disorder R73.03 Prediabetes E78.00 Pure hypercholesterolemia, u nspecified Office Visit 12/28/2020 3:20p Family Medicine [facility] KEISHA Owens J02.9 Acute pharyngitis, unspecifi ed Office Visit 12/21/2020 11:20a Family Medicine [facility] KEISHA Owens R59.0 Localized enlarged lymph nod es J01.90 Acute sinusitis, unspecified Office Visit 10/20/2020 8:20a [facility] KEISHA Owens D68.318 Oth hemorrhagic disord d/t i ntrns circ anticoag,antib,inhib Z12.31 Encntr screen mammogram for malignant neoplasm of breast Assessments Date Code Description Provider 03/28/2021 R10.13 [...] Carmichael 12/21/2020 R59.0 Localized enlarged lymph nodes S KEISHA Carmichael 12/21/2020 J01.90 Acute sinusitis, unspecified KEISHA Messina 10/20/2020 D68.318 Other hemorrhagic di sorder due to intrinsic circulating anticoagulants, antibodies, or inhibitors KEISHA Owens 10/20/2020 Z12.31 Encounter for screen ing mammogram for malignant neoplasm of breast KEISHA Owens Plan of Treatment Future Appointment(s):* 04/28/2021 1:00 pm - KEISHA Owens at [facility] Functional Status Description No Information Available Mental Status Description No Information Available Referrals Refer to Reason for Referral Status Appt Date Josep [...] evaluate and treat urgently Sent 03/31/[address] [place], [place] [address] [phone]
--- OUTSIDE RECORDS SUMMARY | 2021-04-29 11:01 | CCD | Continuity of Care Document ---
Author Author Ricarda MCCALL MD Organization Unknown Address [address] [place] [address] Phone [phone] Care Team Providers Care Ready Mix Truck Driver Name Role Phone Shae Hsieh D.O. AUTM [...] lb BMI (Body Mass Index) 30.2 kg/m2 [place] Body Weight 120 lb Weight 79.834 kg BSA (Body Surface Area) 1.85 m2 Results Description No Information Available Procedures Date Code Description Status 03/31/2021 87305 Office/Outpatient New Moderate M DM 45-59 Minutes Completed Medical Devices Description No Information Available Encounters Type Date Location Provider Dx Diagnosis Office Visit 03/31/2021 2:30p [facility] Gastroenterology [facility] ctice Damian Mccall MD R10.13 Epigastric pain [...] M.D. HEMATEMESIS / EPIGASTRIC PAIN Scheduled 03/31/2021 [facility], Gastroenterology [address] [facility], [address] [place] [address] [phone]
--- OUTSIDE RECORDS SUMMARY | 2021-04-29 11:01 | CCD ---
Continuity of Care Document (CCD) Created on: 03/28/2021 Ricarda Austin External Reference #: [id number] : [id number] Sex: Female Author Author Ricarda FULTON D.O Organization Unknown Address [address] [place] [address] Phone [phone] Care Team Providers Care Online Publisher Name Role Phone Shae Fulton D.O. AUTM [phone] Lew Murrell M.D. AUTM [phone] Josep Cunningham MD AUTM [phone] Problems Active Problems Provider Date Essential hypertension [...] KEISHA Owens Onset: 08/29/2016 Aortic aneurysm Shae Fulton D.O. Onset: 2016 Note: Echo 11/2020: [...] F41.1 [place] JaimeOSima 10/15 Blood Pressure Cuff [facility] blood pressure kit dx: i10, 401.9 dispense:1 [...] mouth twice a day as needed, istop [id number] 60tabs Karen Jaime.OSima 06/22/2016 Wrist Splint/Cock-Up/Right/Canvas/Medium Misc [...] Karen Jaime.O. 0 Vitamin D (Ergocalciferol) 1.25mg (16525 Ut) Capsules Take 1 capsule by mouth [...] F O2 % BldC Oximetry 99 % [place] Body Weight 120 lb 03/25/2021 1:13pm BP Systolic 112 mmHg BP Diastolic 82 mmHg Height 64.1 inches 5'4.10" Weight 174.00 lb BMI (Body Mass Index) 29.8 kg/m2 Heart Rate 81 /min Respiratory Rate 20 /min Body Temperature 97.9 F O2 % BldC Oximetry 98 % [place] Body Weight 120 lb Results Test Acquired Date Facility Test Result H/L Range Note CBC With Differential 03/28/[address] [address] [phone] White Blood Count 4.2 10 Normal 4.0-10.0 [...] 36.0-66.0 Lymph % 41.7 % Normal 24.0-44.0 [place] % 9.0 % High 2.0-8.0 Eos % 7.1 % High 0.0-3.0 Baso % 1.2 % High 0.0-1.0 Immature Granulocyte % 0.0 % Normal 0-3.0 Nucleated Red Blood Cell % 0.0 % Normal 0-0 Neutrophils # 1.7 10 Normal 1.5-8.5 Lymph # 1.8 10 Normal 1.5-5.0 [place] # 0.4 10 Normal 0.0-0.8 Eos # 0.3 10 Normal 0.0-0.5 Baso # 0.1 10 Normal 0.0-0.2 Basic Metabolic Profile 03/28/[address] [address] [phone] Glucose, Fasting 82 mg/dL Normal 70-100 Blood [...] mg/dL Normal 8.5-10.1 Laboratory test finding 03/28/[address] [address] [phone] Lipase 166 U/L Normal 73-393 Liver Profile 03/28/2021 [facility] nter [address] [place] [address] [phone] Ast/Sgot 13 U/L Normal 7-37 Alt/SGPT 25 U/L Normal 12-78 Alkaline Phosphatase 56 U/L Normal 45-117 Bilirubin,Total 0.2 mg/dL Normal 0.2-1.0 Bilirubin,Direct < 0.1 mg/dL Normal 0.0-0.2 Total Protein 7.0 GM/DL Normal 6.4-8.2 Albumin 3.6 GM/DL Normal 3.2-5.2 Albumin/Globulin Ratio 1.1 Low 1.2-2.2 CBC With Differential 03/25/[address] [address] [phone] White Blood Count 5.4 10 Normal 4.0-10.0 [...] 36.0-66.0 Lymph % 40.6 % Normal 24.0-44.0 [place] % 9.6 % High 2.0-8.0 Eos % 6.1 % High 0.0-3.0 Baso % 1.1 % High 0.0-1.0 Immature Granulocyte % 0.4 % Normal 0-3.0 Nucleated Red Blood Cell % 0.0 % Normal 0-0 Neutrophils # 2.3 10 Normal 1.5-8.5 Lymph # 2.2 10 Normal 1.5-5.0 [place] # 0.5 10 Normal 0.0-0.8 Eos # 0.3 10 Normal 0.0-0.5 Baso # 0.1 10 Normal 0.0-0.2 Basic Metabolic Profile 03/25/[address] [id number] [phone] Glucose, Fasting 97 mg/dL Normal 70-100 Blood [...] 8.8 mg/dL Normal 8.5-10.1 Liver Profile 03/25/2021 [facility] nter [address] [place] [address] [phone] Ast/Sgot 13 U/L Normal 7-37 Alt/SGPT 24 U/L Normal 12-78 Alkaline Phosphatase 54 U/L Normal 45-117 Bilirubin,Total 0.2 mg/dL Normal 0.2-1.0 Bilirubin,Direct < 0.1 mg/dL Normal 0.0-0.2 Total Protein 6.8 GM/DL Normal 6.4-8.2 Albumin 3.5 GM/DL Normal 3.2-5.2 Albumin/Globulin Ratio 1.1 Low 1.2-2.2 Laboratory test finding 03/25/[address] [phone] Lipase 231 U/L Normal 73-393 Type & Screen -Incl Blood Type,Randy,AB SC 03/25/[address] 7121557 [phone] Blood Type O POSITIVE Normal AB Screen (Indirect Teri)Vis POSITIVE Normal Laboratory test finding 03/25/2021 [facility] [address] [place] [address] [phone] Antibody Identification Anti-Jka Normal Laboratory test finding 12/28/2020 [facility] Outpatient T esting (Registration) [address] [place] [address] [phone] Throat Culture FULL REPORT IN L <SEE NOTE> Normal 3 Laboratory test finding 12/21/2020 [facility] Outpatient T esting (Registration) [address] [place] [address] [phone] LDH Lactate Dehydrogenase 136 U/L Normal 84-246 CBC With Differential 12/21/2020 [facility] Outpatient Constance ting (Registration) [address] [place] [address] [phone] White Blood Count 4.4 10 Normal 4.0-10.0 [...] 36.0-66.0 Lymph % 39.8 % Normal 24.0-44.0 [place] % 9.2 % High 2.0-8.0 Eos % 8.2 % High 0.0-3.0 Baso % 0.9 % Normal 0.0-1.0 Immature Granulocyte % 0.2 % Normal 0-3.0 Nucleated Red Blood Cell % 0.0 % Normal 0-0 Neutrophils # 1.8 10 Normal 1.5-8.5 Lymph # 1.7 10 Normal 1.5-5.0 [place] # 0.4 10 Normal 0.0-0.8 Eos # 0.4 10 Normal 0.0-0.5 Baso # 0.0 10 Normal 0.0-0.2 1 Units are mL/min/1.73 m2 Chronic Kidney Disease Staging per NKF: Stage I & II GFR >=60 Normal to Mildly Decreased Stage III GFR 30-59 Moderately Decreased Stage IV GFR 15-29 Severely Decreased Stage V GFR <15 Very Little GFR Left ESRD GFR <15 on WIRE WEAVER 2 Units are mL/min/1.73 m2 Chronic Kidney Disease Staging per NKF: Stage I & II GFR >=60 Normal to Mildly Decreased Stage III GFR 30-59 Moderately Decreased Stage IV GFR 15-29 Severely Decreased Stage V GFR <15 Very Little GFR Left ESRD GFR <15 on WIRE WEAVER 3 FULL REPORT IN LAB NOTES (eC W and Medent). NORMAL ELIAZAR PRESENT Procedures Date Code Description Status 03/28/2021 90667 Office/Outpatient Established Lo w MDM 20-29 Min Completed 03/25/2021 43223 Office/Outpatient Established Mo d MDM 30-39 Min Completed 01/25/2021 20519 Office/Outpatient Established Mo d MDM 30-39 Min Completed 12/28/2020 80104 Office/Outpatient Established Lo w MDM 20-29 Min Completed 12/21/2020 05261 Office/Outpatient Established Mo d MDM 30-39 Min Completed 10/20/2020 84790 Office/Outpatient Established Lo w MDM 20-29 Min Completed Medical Devices Description No Information Available Encounters Type Date Location Provider Dx Diagnosis Office Visit 03/28/2021 8:00a [facility] KEISHA Simpson R10.13 Epigastric pain Office Visit 03/25/2021 1:10p [facility] Shae Fulton D.O. K92.0 Hematemesis R10.13 Epigastric pain Office Visit 01/25/2021 10:40a [facility] KEISHA Owens R59.0 Localized enlarged lymph nod es F17.210 Nicotine dependence, cigaret constance, uncomplicated I10 Essential (primary) hyperten bert F41.1 Generalized anxiety disorder R73.03 Prediabetes E78.00 Pure hypercholesterolemia, u nspecified Office Visit 12/28/2020 3:20p [facility] KEISHA Owens J02.9 Acute pharyngitis, unspecifi ed Office Visit 12/21/2020 11:20a [facility] KEISHA Owens R59.0 Localized enlarged lymph nod es J01.90 Acute sinusitis, unspecified Office Visit 10/20/2020 8:20a [facility] KEISHA Owens D68.318 Oth hemorrhagic disord d/t [...] 04/28/2021 1:00 pm - KEISHA Owens at [facility] Functional Status Description No Information Available Mental [...] Please evaluate and treat urgently Sent 03/31/[address] [place], [place] [address] [phone]
--- OUTSIDE RECORDS SUMMARY | 2021-04-29 11:01 | CCD | Continuity of Care Document ---
Author Author Ricarda MCCALL MD Organization Unknown Address [address] [place] [address] Phone [phone] Care Team Providers Care Learning Developer Name Role Phone Shae Hsieh D.O. AUTM [phone] Problems Description No Information Available Social History [...] lb BMI (Body Mass Index) 30.2 kg/m2 [place] Body Weight 120 lb Weight 79.834 kg BSA (Body Surface Area) 1.85 m2 Results Description No Information Available Procedures Date Code Description Status 03/31/2021 44108 Office/Outpatient New Moderate M DM 45-59 Minutes Completed Medical Devices Description No Information Available Encounters Type Date Location Provider Dx Diagnosis Office Visit 03/31/2021 2:30p [facility] Gastroenterology [facility] ctice Damian Mccall MD R10.13 Epigastric pain [...] M.D. HEMATEMESIS / EPIGASTRIC PAIN Scheduled 03/31/2021 [facility], Gastroenterology [address] [facility], [address] [place] [address] [phone]
--- OUTSIDE RECORDS SUMMARY | 2021-04-29 11:01 | CCD | Continuity of Care Document ---
Author Author Ricarda FULTON D.O Organization Unknown Address [address] [place] [address] Phone [phone] Care Team Providers Care Truck Safety Inspector Name Role Phone Shae Fulton D.O. AUTM Lew Murrell M.D. AUTM [phone] Josep Cunningham MD AUTM [phone] Problems Active Problems Provider Date Essential hypertension [...] SIG Qnty Indications Ordering Provide r Date Sucralfate 1gm Tablets take one tablet 4 times daily before meals 90tabs Shae Fulton D SimaOSima 03/25/2021 Zyrtec Allergy 10mg Capsules 1 by mouth every day as needed 30caps Karen Jaime.O. 0 01/25/2021 Wellbutrin XL 300mg Tablets ER 24H R 1 by mouth every day 30tabs Karen Jaime.O. 01/25 Zetia 10mg Tablets 1 b y mouth every day 90tabs E78.00 Karen Jaime.OSima 07/27/2020 Irbesartan 300mg Tablets take 1 tablet by mouth once daily 90tabs [place] JaimeO. 12/10 Sertraline HCL 50mg Tablets 1 by mouth every day 90tabs F41.1 [place] JaimeOSima 10/15 Blood Pressure Cuff [facility] blood pressure kit dx: i10, 401.9 dispense:1 prognosis: fair duration: 99 1units [place] JaimeOSima 09/17/2018 Naproxen 500mg Tablets Take 1 tablet by mouth twice daily with food 60tabs M51.86 Karen Jaime.O. 02/21/2018 Pantoprazole Sodium 40mg Tablets D R take one tablet by mouth daily 180tabs Karen Jaime.O. 07/17/2016 Tramadol HCL 50mg Tablets 1 tablets by mouth twice a day as needed, istop [id number] 60tabs Karen Jaime.O. 06/22/2016 Wrist Splint/Cock-Up/Right/Canvas/Medium Misc apply to right wrist nightly dx: g56.01 prognosis: fair duration: 99 dispense: 1 G56.01 [place] JaimeOSima 04/05 Wrist Splint/Cock-Up/Left/Canvas/Medium Misc apply to left wrist nightly dx: g56.02 dispense: 1 prognosis: fa ir G56.02 [place] JaimeOSima 04/05/2016 Vitamin B-12 1000mcg Tablets Sub 1 by mouth every day Unknown Aspir-[address] 1 by mouth every day Unknown Topiramate 200mg Tablets take 1 tablet by mouth once daily 90tabs Karen Jaime.O. 00/0 Amlodipine Besylate 2.5mg Tablets take one tablet by mouth every day 90tabs Karen Jaime.O. Hydroxyzine HCL 10mg Tablets Take 1 tablet by mouth once daily 90tabs Karen Jaime.O. 0 Vitamin D (Ergocalciferol) 1.25mg (99823 Ut) Capsules Take 1 capsule by mouth [...] Available Vital Signs Date Vital Result Comment 03/25/2021 1:13pm BP Systolic 112 mmHg BP Diastolic 82 mmHg Height 64.1 inches 5'4.10" Weight 174.00 lb BMI (Body Mass Index) 29.8 kg/m2 Heart Rate 81 /min Respiratory Rate 20 /min Body Temperature 97.9 F O2 % BldC Oximetry 98 % [place] Body Weight 120 lb 01/25/2021 10:46am BP Systolic 124 mmHg BP Diastolic 82 mmHg Height 64.1 inches 5'4.10" Weight 173.00 lb BMI (Body Mass Index) 29.6 kg/m2 Heart Rate 73 /min Body Temperature 97.0 F O2 % BldC Oximetry 98 % [place] Body Weight 120 lb Results Test Acquired Date Facility Test Result H/L Range Note CBC With Differential 03/25/[address] [id number] [phone] White Blood Count 5.4 10 Normal 4.0-10.0 [...] 36.0-66.0 Lymph % 40.6 % Normal 24.0-44.0 [place] % 9.6 % High 2.0-8.0 Eos % 6.1 % High 0.0-3.0 Baso % 1.1 % High 0.0-1.0 Immature Granulocyte % 0.4 % Normal 0-3.0 Nucleated Red Blood Cell % 0.0 % Normal 0-0 Neutrophils # 2.3 10 Normal 1.5-8.5 Lymph # 2.2 10 Normal 1.5-5.0 [place] # 0.5 10 Normal 0.0-0.8 Eos # 0.3 10 Normal 0.0-0.5 Baso # 0.1 10 Normal 0.0-0.2 Basic Metabolic Profile 03/25/[address] [address] [phone] Glucose, Fasting 97 mg/dL Normal 70-100 Blood Urea Nitrogen 12 mg/dL Normal 7-18 Creatinine For GFR 0.78 mg/dL Normal 0.55-1.30 Glomerular Filtration Rate > 60.0 Normal >58 1 Sodium Level 145 mEq/L Normal 136-145 Potassium Serum 3.8 mEq/L Normal 3.5-5.1 Chloride Level 114 mEq/L High 98-107 Carbon Dioxide Level 27 mEq/L Normal 21-32 Anion Gap 4 mEq/L Low 8-16 Calcium Level 8.8 mg/dL Normal 8.5-10.1 Liver Profile 03/25/2021 [facility] nter [address] [place] [address] [phone] Ast/Sgot 13 U/L Normal 7-37 Alt/SGPT 24 U/L Normal 12-78 Alkaline Phosphatase 54 U/L Normal 45-117 Bilirubin,Total 0.2 mg/dL Normal 0.2-1.0 Bilirubin,Direct < 0.1 mg/dL Normal 0.0-0.2 Total Protein 6.8 GM/DL Normal 6.4-8.2 Albumin 3.5 GM/DL Normal 3.2-5.2 Albumin/Globulin Ratio 1.1 Low 1.2-2.2 Laboratory test finding 03/25/[address] [address] [phone] Lipase 231 U/L Normal 73-393 Type & Screen -Incl Blood Type,Randy,AB SC 03/25/[address] [address] [phone] Blood Type O POSITIVE Normal AB Screen (Indirect Teri)Vis POSITIVE Normal Laboratory test finding 03/25/[address] [address] [phone] Antibody Identification Anti-Jka Normal Laboratory test finding 12/28/2020 [facility] Outpatient T esting (Registration) [address] [place] [address] [phone] Throat Culture FULL REPORT IN L <SEE NOTE> Normal 2 Laboratory test finding 12/21/2020 [facility] Outpatient T esting (Registration) [address] [place] [address] [phone] LDH Lactate Dehydrogenase 136 U/L Normal 84-246 CBC With Differential 12/21/2020 [facility] Outpatient Constance ting (Registration) [address] [place] [address] [phone] White Blood Count 4.4 10 Normal 4.0-10.0 [...] 36.0-66.0 Lymph % 39.8 % Normal 24.0-44.0 [place] % 9.2 % High 2.0-8.0 Eos % 8.2 % High 0.0-3.0 Baso % 0.9 % Normal 0.0-1.0 Immature Granulocyte % 0.2 % Normal 0-3.0 Nucleated Red Blood Cell % 0.0 % Normal 0-0 Neutrophils # 1.8 10 Normal 1.5-8.5 Lymph # 1.7 10 Normal 1.5-5.0 [place] # 0.4 10 Normal 0.0-0.8 Eos # 0.4 10 Normal 0.0-0.5 Baso # 0.0 10 Normal 0.0-0.2 1 Units are mL/min/1.73 m2 Chronic Kidney Disease Staging per NKF: Stage I & II GFR >=60 Normal to Mildly Decreased Stage III GFR 30-59 Moderately Decreased Stage IV GFR 15-29 Severely Decreased Stage V GFR <15 Very Little GFR Left ESRD GFR <15 on ACCOUNT ASSISTANT 2 FULL REPORT IN LAB NOTES (eC W and Medent). NORMAL ELIAZAR PRESENT Procedures Date Code Description Status 03/25/2021 95653 Office/Outpatient Established Mo d MDM 30-39 Min Completed 01/25/2021 35655 Office/Outpatient Established Mo d MDM 30-39 Min Completed 12/28/2020 10059 Office/Outpatient Established Lo w MDM 20-29 Min Completed 12/21/2020 06133 Office/Outpatient Established Mo d MDM 30-39 Min Completed 10/20/2020 71184 Office/Outpatient Established Lo w MDM 20-29 Min Completed Medical Devices Description No Information Available Encounters Type Date Location Provider Dx Diagnosis Office Visit 03/25/2021 1:10p [facility] Shae Fulton D.O. K92.0 Hematemesis R10.13 Epigastric pain Office Visit 01/25/2021 10:40a [facility] KEISHA Owens R59.0 Localized enlarged lymph nod es F17.210 Nicotine dependence, cigaret constance, uncomplicated I10 Essential (primary) hyperten bert F41.1 Generalized anxiety disorder R73.03 Prediabetes E78.00 Pure hypercholesterolemia, u nspecified Office Visit 12/28/2020 3:20p [facility] KEISHA Owens J02.9 Acute pharyngitis, unspecifi ed Office Visit 12/21/2020 11:20a [facility] KEISHA Owens R59.0 Localized enlarged lymph nod es J01.90 Acute sinusitis, unspecified Office Visit 10/20/2020 8:20a [facility] KEISHA Owens D68.318 Oth hemorrhagic disord d/t i ntrns circ anticoag,antib,inhib Z12.31 Encntr screen mammogram for malignant neoplasm of breast Assessments Date Code Description Provider 03/25/2021 K92.0 Hematemesis Shae stevens, D.O. 03/25/2021 [...] KEISHA Owens Plan of Treatment Future Appointment(s):* 03/28/2021 8:00 am - KEISHA Simpson at [facility] * 04/28/2021 1:00 pm - KEISHA Owens at [facility] 03/25/2021 - Shae Fulton D.O.* K92.0 Hematemesis* Comments:* The last time she had an episode of hematemisis was yesterday. I have asked her to abstain from alcohol and I will start medication to treat her for an upper GI bleed. If she has any further episodes of dark emesis, she is to go directly to the ER * Referral:* Josep Cunningham MD, * Follow up:* sunday or sunday with me or radha * R10.13 Epigastric pain* Comments:* I will treat for suspect GI bleed and if she has worsening pain or another dark emesis, she will go directly to the ER> I have asked her to refrain from any aspirin, no motrin no aleve. If she has a headache, she will take tylenol Functional Status Description No Information Available Mental [...] weekend. Please evaluate and treat urgently Sent / [address] [place] [address] [phone]
--- OUTSIDE RECORDS SUMMARY | 2021-04-29 11:01 | CCD | Continuity of Care Document ---
Author Author Ricarda BULLARD PA Organization [place] [address] Phone [phone] Care Team Providers Care Catalog Library Assistant Name Role Phone Shae Hsieh D.O. AUTM Lew Murrell M.D. AUTM [phone] Josep Cunningham MD AUTM [phone] Problems Active Problems Provider Date Essential hypertension [...] D.O. Ons et: 09/16/2015 Hypersomnia, unspecified Shae Hseih D.O. Onset: 0 09/16/2015 Pure hypercholesterolemia Shae [...] 4.[address] Murrell following Prediabetes Shae Hsihe D.O. Onset: 2017 Spondylolysis Shae Hsieh D.O. [...] Shae Hsieh D.O. 10/15 Blood Pressure Cuff [facility] [place] blood pressure kit dx: i10, 401.9 dispense:1 [...] mouth twice a day as needed, istop [id number] 60tabs Karen Jaime.O. 06/22/2016 Wrist Splint/Cock-Up/Right/Canvas/Medium Misc [...] Karen Jaime.O. 0 Vitamin D (Ergocalciferol) 1.25mg (83234 Ut) Capsules Take 1 capsule by mouth [...] F O2 % BldC Oximetry 99 % [place] Body Weight 120 lb 03/25/2021 1:13pm BP Systolic 112 mmHg BP Diastolic 82 mmHg Height 64.1 inches 5'4.10" Weight 174.00 lb BMI (Body Mass Index) 29.8 kg/m2 Heart Rate 81 /min Respiratory Rate 20 /min Body Temperature 97.9 F O2 % BldC Oximetry 98 % [place] Body Weight 120 lb Results Test Acquired Date Facility Test Result H/L Range Note CBC With Differential 03/28/[address] [address] [phone] White Blood Count 4.2 10 Normal 4.0-10.0 [...] 36.0-66.0 Lymph % 41.7 % Normal 24.0-44.0 [place] % 9.0 % High 2.0-8.0 Eos % 7.1 % High 0.0-3.0 Baso % 1.2 % High 0.0-1.0 Immature Granulocyte % 0.0 % Normal 0-3.0 Nucleated Red Blood Cell % 0.0 % Normal 0-0 Neutrophils # 1.7 10 Normal 1.5-8.5 Lymph # 1.8 10 Normal 1.5-5.0 [place] # 0.4 10 Normal 0.0-0.8 Eos # 0.3 10 Normal 0.0-0.5 Baso # 0.1 10 Normal 0.0-0.2 Basic Metabolic Profile 03/28/[address] [address] [phone] Glucose, Fasting 82 mg/dL Normal 70-100 Blood [...] mg/dL Normal 8.5-10.1 Laboratory test finding 03/28/[address] [phone] Lipase 166 U/L Normal 73-393 Liver Profile 03/28/2021 [facility] nter [address] [place] [address] [phone] Ast/Sgot 13 U/L Normal 7-37 Alt/SGPT 25 U/L Normal 12-78 Alkaline Phosphatase 56 U/L Normal 45-117 Bilirubin,Total 0.2 mg/dL Normal 0.2-1.0 Bilirubin,Direct < 0.1 mg/dL Normal 0.0-0.2 Total Protein 7.0 GM/DL Normal 6.4-8.2 Albumin 3.6 GM/DL Normal 3.2-5.2 Albumin/Globulin Ratio 1.1 Low 1.2-2.2 CBC With Differential 03/25/[address] [address] [phone] White Blood Count 5.4 10 Normal 4.0-10.0 [...] 36.0-66.0 Lymph % 40.6 % Normal 24.0-44.0 [place] % 9.6 % High 2.0-8.0 Eos % 6.1 % High 0.0-3.0 Baso % 1.1 % High 0.0-1.0 Immature Granulocyte % 0.4 % Normal 0-3.0 Nucleated Red Blood Cell % 0.0 % Normal 0-0 Neutrophils # 2.3 10 Normal 1.5-8.5 Lymph # 2.2 10 Normal 1.5-5.0 [place] # 0.5 10 Normal 0.0-0.8 Eos # 0.3 10 Normal 0.0-0.5 Baso # 0.1 10 Normal 0.0-0.2 Basic Metabolic Profile 03/25/[address] [phone] Glucose, Fasting 97 mg/dL Normal 70-100 Blood [...] 8.8 mg/dL Normal 8.5-10.1 Liver Profile 03/25/2021 [facility] nter [address] [place] [address] [phone] Ast/Sgot 13 U/L Normal 7-37 Alt/SGPT 24 U/L Normal 12-78 Alkaline Phosphatase 54 U/L Normal 45-117 Bilirubin,Total 0.2 mg/dL Normal 0.2-1.0 Bilirubin,Direct < 0.1 mg/dL Normal 0.0-0.2 Total Protein 6.8 GM/DL Normal 6.4-8.2 Albumin 3.5 GM/DL Normal 3.2-5.2 Albumin/Globulin Ratio 1.1 Low 1.2-2.2 Laboratory test finding 03/25/[address] 2256145 [phone] Lipase 231 U/L Normal 73-393 Type & Screen -Incl Blood Type,Randy,AB SC 03/25/[address] [phone] Blood Type O POSITIVE Normal AB Screen (Indirect Teri)Vis POSITIVE Normal Laboratory test finding 03/25/2021 [facility] [address] [place] [address] [phone] Antibody Identification Anti-Jka Normal Laboratory test finding 12/28/2020 [facility] Outpatient T esting (Registration) [address] [place] [address] [phone] Throat Culture FULL REPORT IN L <SEE NOTE> Normal 3 Laboratory test finding 12/21/2020 [facility] Outpatient T esting (Registration) [address] [place] [address] [phone] LDH Lactate Dehydrogenase 136 U/L Normal 84-246 CBC With Differential 12/21/2020 [facility] Outpatient Constance ting (Registration) [address] [place] [address] [phone] White Blood Count 4.4 10 Normal 4.0-10.0 [...] 36.0-66.0 Lymph % 39.8 % Normal 24.0-44.0 [place] % 9.2 % High 2.0-8.0 Eos % 8.2 % High 0.0-3.0 Baso % 0.9 % Normal 0.0-1.0 Immature Granulocyte % 0.2 % Normal 0-3.0 Nucleated Red Blood Cell % 0.0 % Normal 0-0 Neutrophils # 1.8 10 Normal 1.5-8.5 Lymph # 1.7 10 Normal 1.5-5.0 [place] # 0.4 10 Normal 0.0-0.8 Eos # 0.4 10 Normal 0.0-0.5 Baso # 0.0 10 Normal 0.0-0.2 1 Units are mL/min/1.73 m2 Chronic Kidney Disease Staging per NKF: Stage I & II GFR >=60 Normal to Mildly Decreased Stage III GFR 30-59 Moderately Decreased Stage IV GFR 15-29 Severely Decreased Stage V GFR <15 Very Little GFR Left ESRD GFR <15 on DYNAMITE RECLAIMER 2 Units are mL/min/1.73 m2 Chronic Kidney Disease Staging per NKF: Stage I & II GFR >=60 Normal to Mildly Decreased Stage III GFR 30-59 Moderately Decreased Stage IV GFR 15-29 Severely Decreased Stage V GFR <15 Very Little GFR Left ESRD GFR <15 on DYNAMITE RECLAIMER 3 FULL REPORT IN LAB NOTES (eC W and Medent). NORMAL ELIAZAR PRESENT Procedures Date Code Description Status 03/28/2021 05004 Office/Outpatient Established Lo w MDM 20-29 Min Completed 03/25/2021 98517 Office/Outpatient Established Mo d MDM 30-39 Min Completed 01/25/2021 54102 Office/Outpatient Established Mo d MDM 30-39 Min Completed 12/28/2020 47815 Office/Outpatient Established Lo w MDM 20-29 Min Completed 12/21/2020 66469 Office/Outpatient Established Mo d MDM 30-39 Min Completed 10/20/2020 37841 Office/Outpatient Established Lo w MDM 20-29 Min Completed Medical Devices Description No Information Available Encounters Type Date Location Provider Dx Diagnosis Office Visit 03/28/2021 8:00a Family Medicine [facility] KEISHA Simpson R10.13 Epigastric pain Office Visit 03/25/2021 1:10p Family [facility] Shae Hsieh D.O. K92.0 Hematemesis R10.13 Epigastric pain Office Visit 01/25/2021 10:40a Family Medicine [facility] KEISHA Owens R59.0 Localized enlarged lymph nod es F17.210 Nicotine dependence, cigaret constance, uncomplicated I10 Essential (primary) hyperten bert F41.1 Generalized anxiety disorder R73.03 Prediabetes E78.00 Pure hypercholesterolemia, u nspecified Office Visit 12/28/2020 3:20p Family Medicine [facility] KEISHA Owens J02.9 Acute pharyngitis, unspecifi ed Office Visit 12/21/2020 11:20a Family Medicine [facility] KEISHA Owens R59.0 Localized enlarged lymph [...] 04/28/2021 1:00 pm - KEISHA Owens at [facility] Functional Status Description No Information Available Mental [...] evaluate and treat urgently Sent 03/31/[address] [place], [place] [address] [phone]
--- OUTSIDE RECORDS SUMMARY | 2021-04-29 11:01 | CCD ---
Continuity of Care Document (CCD) Created on: 03/25/2021 Ricarda Austin External Reference #: [id number] : 1970 Sex: Female Author Author Ricarda FULTON D.O Organization Unknown Address [address] [place] [address] Phone [phone] Care Team Providers Care Clinical Support Specialist Name Role Phone Shae Fulton D.O. AUTM [phone] Lew Murrell M.D. AUTM [phone] Josep Cunningham MD AUTM [phone] Problems Active Problems Provider Date Essential hypertension [...] F41.1 [place] JaimeOSima 10/15 Blood Pressure Cuff [facility] [place] blood pressure kit dx: i10, 401.9 dispense:1 prognosis: fair duration: 99 1units [place] JaimeOSima 09/17/2018 Naproxen 500mg Tablets Take 1 tablet by mouth twice daily with food 60tabs M51.86 Karen Jaime.O. 02/21/2018 Pantoprazole Sodium 40mg Tablets D R take one tablet by mouth daily 180tabs Karen Jaime.O. 07/17/2016 Tramadol HCL 50mg Tablets 1 tablets by mouth twice a day as needed, istop [id number] 60tabs Karen Jaime.O. 06/22/2016 Wrist Splint/Cock-Up/Right/Canvas/Medium Misc [...] Karen Jaime.O. 0 Vitamin D (Ergocalciferol) 1.25mg (22194 Ut) Capsules Take 1 capsule by mouth [...] F O2 % BldC Oximetry 98 % [place] Body Weight 120 lb 01/25/2021 10:46am BP Systolic 124 mmHg BP Diastolic 82 mmHg Height 64.1 inches 5'4.10" Weight 173.00 lb BMI (Body Mass Index) 29.6 kg/m2 Heart Rate 73 /min Body Temperature 97.0 F O2 % BldC Oximetry 98 % [place] Body Weight 120 lb Results Test Acquired Date Facility Test Result H/L Range Note CBC With Differential 03/25/[address] [id number] [phone] White Blood Count 5.4 10 Normal 4.0-10.0 [...] 36.0-66.0 Lymph % 40.6 % Normal 24.0-44.0 [place] % 9.6 % High 2.0-8.0 Eos % 6.1 % High 0.0-3.0 Baso % 1.1 % High 0.0-1.0 Immature Granulocyte % 0.4 % Normal 0-3.0 Nucleated Red Blood Cell % 0.0 % Normal 0-0 Neutrophils # 2.3 10 Normal 1.5-8.5 Lymph # 2.2 10 Normal 1.5-5.0 [place] # 0.5 10 Normal 0.0-0.8 Eos # 0.3 10 Normal 0.0-0.5 Baso # 0.1 10 Normal 0.0-0.2 Basic Metabolic Profile 03/25/[address] [address] [phone] Glucose, Fasting 97 mg/dL Normal 70-100 Blood [...] 8.8 mg/dL Normal 8.5-10.1 Liver Profile 03/25/2021 [facility] nter [address] [place] [address] [phone] Ast/Sgot 13 U/L Normal 7-37 Alt/SGPT 24 U/L Normal 12-78 Alkaline Phosphatase 54 U/L Normal 45-117 Bilirubin,Total 0.2 mg/dL Normal 0.2-1.0 Bilirubin,Direct < 0.1 mg/dL Normal 0.0-0.2 Total Protein 6.8 GM/DL Normal 6.4-8.2 Albumin 3.5 GM/DL Normal 3.2-5.2 Albumin/Globulin Ratio 1.1 Low 1.2-2.2 Laboratory test finding 03/25/[address] [address] [phone] Lipase 231 U/L Normal 73-393 Type & Screen -Incl Blood Type,Randy,AB SC 03/25/[address] [address] [phone] Blood Type O POSITIVE Normal AB Screen (Indirect Teri)Vis POSITIVE Normal Laboratory test finding 03/25/[address] [address] [phone] Antibody Identification Anti-Jka Normal Laboratory test finding 12/28/2020 [facility] Outpatient T esting (Registration) [address] [place] [address] [phone] Throat Culture FULL REPORT IN L <SEE NOTE> Normal 2 Laboratory test finding 12/21/2020 [facility] Outpatient T esting (Registration) [address] [place] [address] [phone] LDH Lactate Dehydrogenase 136 U/L Normal 84-246 CBC With Differential 12/21/2020 [facility] Outpatient Constance ting (Registration) [address] [place] [address] [phone] White Blood Count 4.4 10 Normal 4.0-10.0 [...] 36.0-66.0 Lymph % 39.8 % Normal 24.0-44.0 [place] % 9.2 % High 2.0-8.0 Eos % 8.2 % High 0.0-3.0 Baso % 0.9 % Normal 0.0-1.0 Immature Granulocyte % 0.2 % Normal 0-3.0 Nucleated Red Blood Cell % 0.0 % Normal 0-0 Neutrophils # 1.8 10 Normal 1.5-8.5 Lymph # 1.7 10 Normal 1.5-5.0 [place] # 0.4 10 Normal 0.0-0.8 Eos # 0.4 10 Normal 0.0-0.5 Baso # 0.0 10 Normal 0.0-0.2 1 Units are mL/min/1.73 m2 Chronic Kidney Disease Staging per NKF: Stage I & II GFR >=60 Normal to Mildly Decreased Stage III GFR 30-59 Moderately Decreased Stage IV GFR 15-29 Severely Decreased Stage V GFR <15 Very Little GFR Left ESRD GFR <15 on SURGICAL PHYSICIAN ASSISTANT 2 FULL REPORT IN LAB NOTES (eC W and Medent). NORMAL ELIAZAR PRESENT Procedures Date Code Description Status 03/25/2021 73538 Office/Outpatient Established Mo d MDM 30-39 Min Completed 01/25/2021 95314 Office/Outpatient Established Mo d MDM 30-39 Min Completed 12/28/2020 75086 Office/Outpatient Established Lo w MDM 20-29 Min Completed 12/21/2020 39316 Office/Outpatient Established Mo d MDM 30-39 Min Completed 10/20/2020 40646 Office/Outpatient Established Lo w MDM 20-29 Min Completed Medical Devices Description No Information Available Encounters Type Date Location Provider Dx Diagnosis Office Visit 03/25/2021 1:10p [facility] Shae Fulton D.O. K92.0 Hematemesis R10.13 Epigastric pain Office Visit 01/25/2021 10:40a [facility] KEISHA Owens R59.0 Localized enlarged lymph nod es F17.210 Nicotine dependence, cigaret constance, uncomplicated I10 Essential (primary) hyperten ebrt F41.1 Generalized anxiety disorder R73.03 Prediabetes E78.00 Pure hypercholesterolemia, u nspecified Office Visit 12/28/2020 3:20p [facility] KEISHA Owens J02.9 Acute pharyngitis, unspecifi ed Office Visit 12/21/2020 11:20a [facility] KEISHA Owens R59.0 Localized enlarged lymph nod es J01.90 Acute sinusitis, unspecified Office Visit 10/20/2020 8:20a [facility] KEISHA Owens D68.318 Oth hemorrhagic disord d/t [...] 03/28/2021 8:00 am - KEISHA Simpson at [facility] * 04/28/2021 1:00 pm - KEISHA Owens at [facility] 03/25/2021 - Shae Fulton D.O.* K92.0 Hematemesis* [...] and treat urgently Sent / [address] [place] [address] [phone]
--- OUTSIDE RECORDS SUMMARY | 2021-04-29 11:01 | CCD | Continuity of Care Document ---
Author Author Ricarda FULTON D.O Organization Unknown Address [address] [place] [address] Phone [phone] Care Team Providers Care Cloud Services Architect Name Role Phone Shae Fulton D.O. AUTM Lew Murrell M.D. AUTM [phone] Josep Cunningham MD AUTM [phone] Problems Active Problems Provider Date Essential hypertension [...] F41.1 [place] JaimeOSima 10/15 Blood Pressure Cuff [facility] [place] kit dx: i10, 401.9 dispense:1 prognosis: fair duration: 99 1units [place] JaimeOSima 09/17/2018 Naproxen 500mg Tablets Take 1 tablet by mouth twice daily with food 60tabs M51.86 Karen Jaime.O. 02/21/2018 Pantoprazole Sodium 40mg Tablets D R take one tablet by mouth daily 180tabs Karen Jaime.O. 07/17/2016 Tramadol HCL 50mg Tablets 1 tablets by mouth twice a day as needed, istop [id number] 60tabs Karen Jaime.O. 06/22/2016 Wrist Splint/Cock-Up/Right/Canvas/Medium Misc [...] Karen Jaime.O. 0 Vitamin D (Ergocalciferol) 1.25mg (79866 Ut) Capsules Take 1 capsule by mouth [...] F O2 % BldC Oximetry 98 % [place] Body Weight 120 lb 01/25/2021 10:46am BP Systolic 124 mmHg BP Diastolic 82 mmHg Height 64.1 inches 5'4.10" Weight 173.00 lb BMI (Body Mass Index) 29.6 kg/m2 Heart Rate 73 /min Body Temperature 97.0 F O2 % BldC Oximetry 98 % [place] Body Weight 120 lb Results Test Acquired Date Facility Test Result H/L Range Note CBC With Differential 03/25/[address] [id number] [phone] White Blood Count 5.4 10 Normal 4.0-10.0 [...] 36.0-66.0 Lymph % 40.6 % Normal 24.0-44.0 [place] % 9.6 % High 2.0-8.0 Eos % 6.1 % High 0.0-3.0 Baso % 1.1 % High 0.0-1.0 Immature Granulocyte % 0.4 % Normal 0-3.0 Nucleated Red Blood Cell % 0.0 % Normal 0-0 Neutrophils # 2.3 10 Normal 1.5-8.5 Lymph # 2.2 10 Normal 1.5-5.0 [place] # 0.5 10 Normal 0.0-0.8 Eos # 0.3 10 Normal 0.0-0.5 Baso # 0.1 10 Normal 0.0-0.2 Basic Metabolic Profile 03/25/[address] [address] [phone] Glucose, Fasting 97 mg/dL Normal 70-100 Blood [...] 8.8 mg/dL Normal 8.5-10.1 Liver Profile 03/25/2021 [facility] nter [address] [place] [address] [phone] Ast/Sgot 13 U/L Normal 7-37 Alt/SGPT 24 U/L Normal 12-78 Alkaline Phosphatase 54 U/L Normal 45-117 Bilirubin,Total 0.2 mg/dL Normal 0.2-1.0 Bilirubin,Direct < 0.1 mg/dL Normal 0.0-0.2 Total Protein 6.8 GM/DL Normal 6.4-8.2 Albumin 3.5 GM/DL Normal 3.2-5.2 Albumin/Globulin Ratio 1.1 Low 1.2-2.2 Laboratory test finding 03/25/[address] [address] [phone] Lipase 231 U/L Normal 73-393 Type & Screen -Incl Blood Type,Randy,AB SC 03/25/[address] [address] [phone] Blood Type O POSITIVE Normal AB Screen (Indirect Teri)Vis POSITIVE Normal Laboratory test finding 03/25/[address] [address] [phone] Antibody Identification Anti-Jka Normal Laboratory test finding 12/28/2020 [facility] Outpatient T esting (Registration) [address] [place] [address] [phone] Throat Culture FULL REPORT IN L <SEE NOTE> Normal 2 Laboratory test finding 12/21/2020 [facility] Outpatient T esting (Registration) [address] [place] [address] [phone] LDH Lactate Dehydrogenase 136 U/L Normal 84-246 CBC With Differential 12/21/2020 [facility] Outpatient Constance ting (Registration) [address] [place] [address] [phone] White Blood Count 4.4 10 Normal 4.0-10.0 [...] 36.0-66.0 Lymph % 39.8 % Normal 24.0-44.0 [place] % 9.2 % High 2.0-8.0 Eos % 8.2 % High 0.0-3.0 Baso % 0.9 % Normal 0.0-1.0 Immature Granulocyte % 0.2 % Normal 0-3.0 Nucleated Red Blood Cell % 0.0 % Normal 0-0 Neutrophils # 1.8 10 Normal 1.5-8.5 Lymph # 1.7 10 Normal 1.5-5.0 [place] # 0.4 10 Normal 0.0-0.8 Eos # 0.4 10 Normal 0.0-0.5 Baso # 0.0 10 Normal 0.0-0.2 1 Units are mL/min/1.73 m2 Chronic Kidney Disease Staging per NKF: Stage I & II GFR >=60 Normal to Mildly Decreased Stage III GFR 30-59 Moderately Decreased Stage IV GFR 15-29 Severely Decreased Stage V GFR <15 Very Little GFR Left ESRD GFR <15 on STOVE FITTER 2 FULL REPORT IN LAB NOTES (eC W and Medent). NORMAL ELIAZAR PRESENT Procedures Date Code Description Status 03/25/2021 61248 Office/Outpatient Established Mo d MDM 30-39 Min Completed 01/25/2021 54896 Office/Outpatient Established Mo d MDM 30-39 Min Completed 12/28/2020 04993 Office/Outpatient Established Lo w MDM 20-29 Min Completed 12/21/2020 41311 Office/Outpatient Established Mo d MDM 30-39 Min Completed 10/20/2020 87901 Office/Outpatient Established Lo w MDM 20-29 Min Completed Medical Devices Description No Information Available Encounters Type Date Location Provider Dx Diagnosis Office Visit 03/25/2021 1:10p [facility] Shae Fulton D.O. K92.0 Hematemesis R10.13 Epigastric pain Office Visit 01/25/2021 10:40a [facility] KEISHA Owens R59.0 Localized enlarged lymph nod es F17.210 Nicotine dependence, cigaret constance, uncomplicated I10 Essential (primary) hyperten bert F41.1 Generalized anxiety disorder R73.03 Prediabetes E78.00 Pure hypercholesterolemia, u nspecified Office Visit 12/28/2020 3:20p [facility] KEISHA Owens J02.9 Acute pharyngitis, unspecifi ed Office Visit 12/21/2020 11:20a [facility] KEISHA Owens R59.0 Localized enlarged lymph nod es J01.90 Acute sinusitis, unspecified Office Visit 10/20/2020 8:20a [facility] KEIHSA Oewns D68.318 Oth hemorrhagic disord d/t i ntrns [...] 03/28/2021 8:00 am - KEISHA Simpson at [facility] * 04/28/2021 1:00 pm - KEISHA Owens at [facility] 03/25/2021 - Shae Fulton D.O.* K92.0 Hematemesis* [...] and treat urgently Sent / 00 [address] [place] [address] [phone]
--- OUTSIDE RECORDS SUMMARY | 2021-04-29 11:02 | CCD ---
Author Author [facility] Organization [facility] Address Unknown Phone Unavailable Care Team Providers Care Dean Of Boys Name Role Phone ERICA RAPHAEL MD Unavailable Unavailable ERICA RAPHAEL MD Unavailable Unavailable ERICA RAPHAEL MD Unavailable Unavailable ERICA RAPHAEL MD Unavailable Unavailable EIRCA RAPHAEL MD Unavailable Unavailable ERICA RAPHAEL MD Unavailable Unavailable ERICA RAPHAEL MD Unavailable Unavailable REINERICA ESPINOZA MD Unavailable Unavailable ERICA RAPHAEL MD Unavailable Unavailable ERICA RAPHAEL MD Unavailable Unavailable ERICA RAPHAEL MD Unavailable Unavailable ERICA RAPHAEL MD Unavailable Unavailable ERICA RAPHAEL MD Unavailable Unavailable ERICA RAPHAEL MD Unavailable Unavailable ERICA RAPHAEL MD Unavailable Unavailable ERICA RAPHAEL MD Unavailable Unavailable ERICA RAPHAEL MD Unavailable Unavailable ERICA RAPHAEL MD Unavailable Unavailable ERICA RAPHAEL MD Unavailable Unavailable ERICA RAPHAEL MD Unavailable Unavailable ERICA RAPHAEL MD Unavailable Unavailable ERICA RAPHAEL MD Unavailable Unavailable ERICA RAPHAEL MD Unavailable Unavailable ERICA RAPHAEL MD Unavailable Unavailable ERICA RAPHAEL MD Unavailable Unavailable ERICA RAPHAEL MD Unavailable Unavailable REINERICA ESPINOZA MD Unavailable Unavailable REINDL, ERICA MONTES Unavailable Unavailable REINDL, ERICA MONTES Unavailable Unavailable REINDL, ERICA MONTES Unavailable Unavailable REINDL, ERICA MONTES Unavailable Unavailable REINDL, ERICA MONTES Unavailable Unavailable REINDL, ERICA MONTES Unavailable Unavailable REINDL, ERICA MONTES Unavailable Unavailable REINDL, ERICA MONTES Unavailable Unavailable REINDL, ERICA MONTES Unavailable Unavailable REINDL, ERICA MONTES Unavailable Unavailable REINDL, ERICA MONTES Unavailable Unavailable REINDL, ERICA MONTES Unavailable Unavailable REINDL, ERICA MONTES Unavailable Unavailable REINDL, ERICA MONTES Unavailable Unavailable REINDL, ERICA MONTES Unavailable Unavailable BOBBI-DORIS, CRUZ DO Unavailable Unavailable BOBBI-DORIS, CRUZ DO Unavailable Unavailable BOBBI-DORIS, CRUZ DO Unavailable Unavailable BOBBI-DORIS, CRUZ DO Unavailable Unavailable BOBBI-DORIS, CRUZ DO Unavailable Unavailable BOBBI-DORIS, CRUZ DO Unavailable Unavailable BOBBI-DORIS, CRUZ DO Unavailable Unavailable BOBBI-DORIS, CRUZ DO Unavailable Unavailable BOBBI-DORIS, CRUZ DO Unavailable Unavailable BOBBI-DORIS, CRUZ DO Unavailable Unavailable BOBBI-DORIS, CRUZ DO Unavailable Unavailable BOBBI-DORIS, CRUZ DO Unavailable Unavailable BOBBI-DORIS, CRUZ DO Unavailable Unavailable BOBBI-DORIS, CRUZ DO Unavailable Unavailable BOBBI-DORIS, CRUZ DO Unavailable Unavailable BOBBI-DORIS, CRUZ DO Unavailable Unavailable BOBBI-DORIS, CRUZ DO Unavailable Unavailable BOBBI-DORIS, CRUZ DO Unavailable Unavailable BOBBI-DORIS, CRUZ DO Unavailable Unavailable BOBBI-DORIS, CRUZ DO Unavailable Unavailable BOBBI-DORIS, CRUZ DO Unavailable Unavailable BOBBI-DORIS, CRUZ DO Unavailable Unavailable BOBBI-DORIS, CRUZ DO Unavailable Unavailable BOBBI-DORIS, CRUZ DO Unavailable Unavailable BOBBI-DORIS, CRUZ DO Unavailable Unavailable BOBBI-DORIS, CRUZ DO Unavailable Unavailable BOBBI-DORIS, CRUZ DO Unavailable Unavailable BOBBI-DORIS, CRUZ DO Unavailable Unavailable BOBBI-DORIS, CRUZ DO Unavailable Unavailable BOBBI-DORIS, CRUZ DO Unavailable Unavailable BOBBI-DORIS, CRUZ DO Unavailable Unavailable BOBBI-DORIS, CRUZ DO Unavailable Unavailable BOBBI-DORIS, CRUZ DO Unavailable Unavailable BOBBI-DORIS, CRUZ DO Unavailable Unavailable BOBBI-DORIS, CRUZ DO Unavailable Unavailable BOBBI-DORIS, CRUZ DO Unavailable Unavailable BOBBI-DORIS, CRUZ DO Unavailable Unavailable BOBBI-DORIS, CRUZ DO Unavailable Unavailable BOBBI-DORIS, CRUZ DO Unavailable Unavailable BOBBI-DORIS, CRUZ DO Unavailable Unavailable BOBBI-DORIS, CRUZ DO Unavailable Unavailable BOBBI-DORIS, CRUZ DO Unavailable Unavailable BOBBI-DORIS, CRUZ DO Unavailable Unavailable BOBBI-DORIS, CRUZ DO Unavailable Unavailable BOBBI-DORIS, CRUZ DO Unavailable Unavailable BOBBI-DORIS, CRUZ DO Unavailable Unavailable BOBBI-DORIS, CRUZ DO Unavailable Unavailable BOBBI-DORIS, CRUZ DO Unavailable Unavailable BOBBI-DORIS, CRUZ DO Unavailable Unavailable BOBBI-DORIS, CRUZ DO Unavailable Unavailable BOBBI-DORIS, CRUZ DO Unavailable Unavailable BOBBI-DORIS, CRUZ DO Unavailable Unavailable BOBBI-DORIS, CRUZ DO Unavailable Unavailable BOBBI-DORIS, CRUZ DO Unavailable Unavailable BOBBI-DORIS, CRUZ DO Unavailable Unavailable BOBBI-DORIS, CRUZ DO Unavailable Unavailable BOBBI-DORIS, CRUZ DO Unavailable Unavailable BOBBI-DORIS, CRUZ DO Unavailable Unavailable BOBBI-DORIS, CRUZ DO Unavailable Unavailable BOBBI-DORIS, CRUZ DO Unavailable Unavailable BOBBI-DORIS, CRUZ DO Unavailable Unavailable BOBBI-DORIS, CRUZ DO Unavailable Unavailable BOBBI-DORIS, CRUZ DO Unavailable Unavailable BOBBI-DORIS, CRUZ DO Unavailable Unavailable BOBBI-DORIS, CRUZ DO Unavailable Unavailable BOBBI-DORIS, CRUZ DO Unavailable Unavailable BOBBI-DORIS, CRUZ DO Unavailable Unavailable BOBBI-DORIS, CRUZ DO Unavailable Unavailable BOBBI-DORIS, CRUZ DO Unavailable Unavailable BOBBI-DORIS, CRUZ DO Unavailable Unavailable BOBBI-DORIS, CRUZ DO Unavailable Unavailable BOBBI-DORIS, CRUZ DO Unavailable Unavailable BOBBI-DORIS, CRUZ DO Unavailable Unavailable BOBBI-DORIS, CRUZ DO Unavailable Unavailable BOBBI-DORIS, CRUZ DO Unavailable Unavailable BOBBI-DORIS, CRUZ DO Unavailable Unavailable BOBBI-DORIS, CRUZ DO Unavailable Unavailable BOBBI-DORIS, CRUZ DO Unavailable Unavailable BOBBI-DORIS, CRUZ DO Unavailable Unavailable BOBBI-DORIS, CRUZ DO Unavailable Unavailable BOBBI-DORIS, CRUZ DO Unavailable Unavailable BOBBI-DORIS, CRUZ DO Unavailable Unavailable BOBBI-DORIS, CRUZ DO Unavailable Unavailable BOBBI-DORIS, CRUZ DO Unavailable Unavailable Darci, Gasper PA Unavailable Unavailable Darci, Gasper PA Unavailable Unavailable Darci, Gasper PA Unavailable Unavailable Darci, Gasper PA Unavailable Unavailable Darci, Gasper PA Unavailable Unavailable Darci, Gasper PA Unavailable Unavailable Darci, Gasper PA Unavailable Unavailable Darci, Gasper PA Unavailable Unavailable Darci, Gasper PA Unavailable Unavailable Darci, Gasper PA Unavailable Unavailable Darci, Gasper PA Unavailable Unavailable Darci, Gasper PA Unavailable Unavailable Darci, Gasper PA Unavailable Unavailable Darci, Gasper PA Unavailable Unavailable Darci, Gasper PA Unavailable Unavailable Darci, Gasper PA Unavailable Unavailable Darci, Gasper PA Unavailable Unavailable Darci, Gasper PA Unavailable Unavailable Darci, Gasper PA Unavailable Unavailable Darci, Gasper PA Unavailable Unavailable Darci, Gasper PA Unavailable Unavailable Darci, Gasper PA Unavailable Unavailable Darci, Gasper PA Unavailable Unavailable Darci, Gasper PA Unavailable Unavailable Darci, Gasper PA Unavailable Unavailable Darci, Gasper PA Unavailable Unavailable Darci, Gasper PA Unavailable Unavailable Darci, Gasper PA Unavailable Unavailable Darci, Gasper PA Unavailable Unavailable Darci, Gasper PA Unavailable Unavailable Darci, Gasper PA Unavailable Unavailable Darci, Gasper PA Unavailable Unavailable Darci, Gasper PA Unavailable Unavailable Darci, Gasper PA Unavailable Unavailable Darci, Gasper PA Unavailable Unavailable Darci, Gasper PA Unavailable Unavailable Darci, Gasper PA Unavailable Unavailable Darci, Gasper PA Unavailable Unavailable Darci, Gasper PA Unavailable Unavailable Darci, Gasper PA Unavailable Unavailable Darci, Gasper PA Unavailable Unavailable Darci, Gasper PA Unavailable Unavailable Dacri, Gasper PA Unavailable Unavailable Darci, Gasper PA Unavailable Unavailable Darci, Gasper PA Unavailable Unavailable Darci, Gasper PA Unavailable Unavailable Darci, Gasper PA Unavailable Unavailable Darci, Gasper PA Unavailable Unavailable Darci, Gasper PA Unavailable Unavailable Darci, Gasper PA Unavailable Unavailable Darci, Gasper PA Unavailable Unavailable Darci, Gasper PA Unavailable Unavailable Darci, Gasper PA Unavailable Unavailable Darci, Gasper PA Unavailable Unavailable O'cinda, A Allan PA Unavailable Unavailable O'cinda, A Allan PA Unavailable Unavailable O'cinda, A Allan PA Unavailable Unavailable O'cinda, A Allan PA Unavailable Unavailable O'cinda, A Allan PA Unavailable Unavailable O'cinda, A Allan PA Unavailable Unavailable O'cinda, A Allan PA Unavailable Unavailable O'cinda, A Allan PA Unavailable Unavailable O'cinda, A Allan PA Unavailable Unavailable O'cinda, A Allan PA Unavailable Unavailable O'cinda, A Allan PA Unavailable Unavailable O'cinda, A Allan PA Unavailable Unavailable O'cinda, A Allan PA Unavailable Unavailable O'cinda, A Allan PA Unavailable Unavailable O'cinda, A Allan PA Unavailable Unavailable O'cinda, A Allan PA Unavailable Unavailable O'cinda, A Allan PA Unavailable Unavailable O'cinda, A Allan PA Unavailable Unavailable O'cinda, A Allan PA Unavailable Unavailable O'cinda, A Allan PA Unavailable Unavailable O'cinda, A Allan PA Unavailable Unavailable O'cinda, A Allan PA Unavailable Unavailable O'cinda, A Allan PA Unavailable Unavailable O'cinda, A Allan PA Unavailable Unavailable O'cinda, A Allan PA Unavailable Unavailable O'cinda, A Allan PA Unavailable Unavailable O'cinda, A Allan PA Unavailable Unavailable O'cinda, A Allan PA Unavailable Unavailable O'cinda, A Allan PA Unavailable Unavailable O'cinda, A Allan PA Unavailable Unavailable O'cinda, A Allan PA Unavailable Unavailable O'cinda, A Allan PA Unavailable Unavailable O'cinda, A Allan PA Unavailable Unavailable NUNEZ, W KRISTA PA Unavailable Unavailable NUNEZ, W KRISTA PA Unavailable Unavailable NUNEZ, W KRISTA PA Unavailable Unavailable NUNEZ, W KRISTA PA Unavailable Unavailable NUNEZ, W KRISTA PA Unavailable Unavailable NUNEZ, W KRISTA PA Unavailable Unavailable NUNEZ, W KRISTA PA Unavailable Unavailable NUNEZ, W KRISTA PA Unavailable Unavailable NUNEZ, W KRISTA PA Unavailable Unavailable NUNEZ, W KRISTA PA Unavailable Unavailable NUNEZ, W KRISTA PA Unavailable Unavailable NUNEZ, W KRISTA PA Unavailable Unavailable NUNEZ, W KRISTA PA Unavailable Unavailable NUNEZ, W KRISTA PA Unavailable Unavailable NUNEZ, W KRISTA PA Unavailable Unavailable Emily Mckeon COLLEGE TUTOR Unavailable Unavailable Linda, N Kimo COLLEGE TUTOR Unavailable Unavailable [place], N Kimo COLLEGE TUTOR Unavailable Unavailable Linda, N Kimo COLLEGE TUTOR Unavailable Unavailable Linda, N Kimo COLLEGE TUTOR Unavailable Unavailable [place], N Kimo COLLEGE TUTOR Unavailable Unavailable Linda, N Kimo COLLEGE TUTOR Unavailable Unavailable [place], N Kimo COLLEGE TUTOR Unavailable Unavailable [place], N Kimo COLLEGE TUTOR Unavailable Unavailable Linda, N Kimo COLLEGE TUTOR Unavailable Unavailable Linda, N Kimo COLLEGE TUTOR Unavailable Unavailable Linda, N Kimo COLLEGE TUTOR Unavailable Unavailable [place], N Kimo COLLEGE TUTOR Unavailable Unavailable [place], N Kimo COLLEGE TUTOR Unavailable Unavailable [place], N Kimo COLLEGE TUTOR Unavailable Unavailable Linda, N Kimo COLLEGE TUTOR Unavailable Unavailable [place], N Kimo COLLEGE TUTOR Unavailable Unavailable Linda, N Kimo COLLEGE TUTOR Unavailable Unavailable [place], N Kimo COLLEGE TUTOR Unavailable Unavailable Linda, N Kimo COLLEGE TUTOR Unavailable Unavailable [place], N Kimo COLLEGE TUTOR Unavailable Unavailable [place], N Kimo COLLEGE TUTOR Unavailable Unavailable Linda, N Kimo COLLEGE TUTOR Unavailable Unavailable Linda, N Kimo COLLEGE TUTOR Unavailable Unavailable Linda, N Kimo COLLEGE TUTOR Unavailable Unavailable [place], N Kimo COLLEGE TUTOR Unavailable Unavailable Linda, N Kimo COLLEGE TUTOR Unavailable Unavailable Linda, N Kimo COLLEGE TUTOR Unavailable Unavailable [place], N Kimo COLLEGE TUTOR Unavailable Unavailable Linda, N Kimo COLLEGE TUTOR Unavailable Unavailable [place], N Kimo COLLEGE TUTOR Unavailable Unavailable [place], N Kimo COLLEGE TUTOR Unavailable Unavailable Linda, N Kimo COLLEGE TUTOR Unavailable Unavailable Marin, A Phyl ADMINISTRATION INTERNSHIP-BC Unavailable Unavailable Marin, A Phyl ADMINISTRATION INTERNSHIP-BC Unavailable Unavailable Marin, A Phyl ADMINISTRATION INTERNSHIP-BC Unavailable Unavailable Marin, A Phyl ADMINISTRATION INTERNSHIP-BC Unavailable Unavailable Marin, A Phyl ADMINISTRATION INTERNSHIP-BC Unavailable Unavailable Marin, A Phyl ADMINISTRATION INTERNSHIP-BC Unavailable Unavailable Marin, A Phyl ADMINISTRATION INTERNSHIP-BC Unavailable Unavailable Marin, A Phyl ADMINISTRATION INTERNSHIP-BC Unavailable Unavailable Marin, A Phyl ADMINISTRATION INTERNSHIP-BC Unavailable Unavailable Marin, A Phyl ADMINISTRATION INTERNSHIP-BC Unavailable Unavailable Marin, A Phyl ADMINISTRATION INTERNSHIP-BC Unavailable Unavailable Marin, A Phyl ADMINISTRATION INTERNSHIP-BC Unavailable Unavailable Marin, A Phyl ADMINISTRATION INTERNSHIP-BC Unavailable Unavailable Marin, A Phyl ADMINISTRATION INTERNSHIP-BC Unavailable Unavailable Marin, A Phyl ADMINISTRATION INTERNSHIP-BC Unavailable Unavailable Marin, A Phyl ADMINISTRATION INTERNSHIP-BC Unavailable Unavailable Marin, A Phyl ADMINISTRATION INTERNSHIP-BC Unavailable Unavailable Marin, A Phyl ADMINISTRATION INTERNSHIP-BC Unavailable Unavailable Marin, A Phyl ADMINISTRATION INTERNSHIP-BC Unavailable Unavailable Marin, A Phyl ADMINISTRATION INTERNSHIP-BC Unavailable Unavailable Marin, A Phyl ADMINISTRATION INTERNSHIP-BC Unavailable Unavailable Marin, A Phyl ADMINISTRATION INTERNSHIP-BC Unavailable Unavailable Marin, A Phyl ADMINISTRATION INTERNSHIP-BC Unavailable Unavailable Marin, A Phyl ADMINISTRATION INTERNSHIP-BC Unavailable Unavailable Marin, A Phyl ADMINISTRATION INTERNSHIP-BC Unavailable Unavailable Marin, A Phyl ADMINISTRATION INTERNSHIP-BC Unavailable Unavailable Marin, A Phyl ADMINISTRATION INTERNSHIP-BC Unavailable Unavailable Marin, A Phyl ADMINISTRATION INTERNSHIP-BC Unavailable Unavailable Marin, A Phyl ADMINISTRATION INTERNSHIP-BC Unavailable Unavailable Marin, A Phyl ADMINISTRATION INTERNSHIP-BC Unavailable Unavailable Marin, A Phyl ADMINISTRATION INTERNSHIP-BC Unavailable Unavailable Marin, A Phyl ADMINISTRATION INTERNSHIP-BC Unavailable Unavailable Lockerbie, S Maria Teresa ADMINISTRATION INTERNSHIP-C Unavailable Unavailable Lockerbie, S Maria Teresa ADMINISTRATION INTERNSHIP-C Unavailable Unavailable Lockerbie, S Maria Teresa ADMINISTRATION INTERNSHIP-C Unavailable Unavailable Lockerbie, S Maria Teresa ADMINISTRATION INTERNSHIP-C Unavailable Unavailable Lockerbie, S Maria Teresa ADMINISTRATION INTERNSHIP-C Unavailable Unavailable Lockerbie, S Maria Teresa ADMINISTRATION INTERNSHIP-C Unavailable Unavailable Lockerbie, S Maria Teresa ADMINISTRATION INTERNSHIP-C Unavailable Unavailable Lockerbie, S Maria Teresa ADMINISTRATION INTERNSHIP-C Unavailable Unavailable Lockerbie, S Maria Teresa ADMINISTRATION INTERNSHIP-C Unavailable Unavailable Lockerbie, S Maria Teresa ADMINISTRATION INTERNSHIP-C Unavailable Unavailable Lockerbie, S Maria Teresa ADMINISTRATION INTERNSHIP-C Unavailable Unavailable Lockerbie, S Maria Teresa ADMINISTRATION INTERNSHIP-C Unavailable Unavailable Lockerbie, S Maria Teresa ADMINISTRATION INTERNSHIP-C Unavailable Unavailable Lockerbie, S Maria Teresa ADMINISTRATION INTERNSHIP-C Unavailable Unavailable Lockerbie, S Maria Teresa ADMINISTRATION INTERNSHIP-C Unavailable Unavailable Lockerbie, S Maria Teresa ADMINISTRATION INTERNSHIP-C Unavailable Unavailable Lockerbie, S Maria Teresa ADMINISTRATION INTERNSHIP-C Unavailable Unavailable Lockerbie, S Maria Teresa ADMINISTRATION INTERNSHIP-C Unavailable Unavailable Lockerbie, S Maria Teresa ADMINISTRATION INTERNSHIP-C Unavailable Unavailable Lockerbie, S Maria Teresa ADMINISTRATION INTERNSHIP-C Unavailable Unavailable Lockerbie, S Maria Teresa ADMINISTRATION INTERNSHIP-C Unavailable Unavailable Lockerbie, S Maria Teresa ADMINISTRATION INTERNSHIP-C Unavailable Unavailable Lockerbie, S Maria Teresa ADMINISTRATION INTERNSHIP-C Unavailable Unavailable Lockerbie, S Maria Teresa ADMINISTRATION INTERNSHIP-C Unavailable Unavailable HUIZENGA, Karen GARCIA DO Unavailable Unavailable HUIZENGA, Karen GARCIA DO Unavailable Unavailable HUIZENGA, Karen GARCIA DO Unavailable Unavailable HUIZENGA, Karen GARCIA DO Unavailable Unavailable HUIZENGA, Karen GARCIA DO Unavailable Unavailable HUIZENGA, Karen GARCIA DO Unavailable Unavailable HUIZENGA, Karen GARCIA DO Unavailable Unavailable HUIZENGA, Karen GARCIA DO Unavailable Unavailable HUIZENGA, Karen GARCIA DO Unavailable Unavailable HUIZENGA, Karen GARCIA DO Unavailable Unavailable HUIZENGA, Karen GARCIA DO Unavailable Unavailable HUIZENGA, Karen GARCIA DO Unavailable Unavailable HUIZENGA, Karen GARCIA DO Unavailable Unavailable HUIZENGA, Karen GARCIA DO Unavailable Unavailable HUIZENGA, Karen GARCIA DO Unavailable Unavailable HUIZENGA, Karen GARCIA DO Unavailable Unavailable HUIZENGA, Karen GARCIA DO Unavailable Unavailable HUIZENGA, Karen GARCIA DO Unavailable Unavailable HUIZENGA, Karen GARCIA DO Unavailable Unavailable HUIZENGA, Karen GARCIA DO Unavailable Unavailable HUIZENGA, Karen GARCIA DO Unavailable Unavailable HUIZENGA, Karen GARCIA DO Unavailable Unavailable HUIZENGA, Karen GARCIA DO Unavailable Unavailable HUIZENGA, Karen GARCIA DO Unavailable Unavailable HUIZENGA, Karen GARCIA DO Unavailable Unavailable HUIZENGA, Karen GARCIA DO Unavailable Unavailable HUIZENGA, Karen GARCIA DO Unavailable Unavailable HUIZENGA, Karen GARCIA DO Unavailable Unavailable HUIZENGA, Karen GARCIA DO Unavailable Unavailable HUIZENGA, Karen GARCIA DO Unavailable Unavailable HUIZENGA, Karen GARCIA DO Unavailable Unavailable HUIZENGA, Karen GARCIA DO Unavailable Unavailable HUIZENGA, Karen GARCIA DO Unavailable Unavailable HUIZENGA, Karen GARCIA DO Unavailable Unavailable HUIZENGA, Karen GARCIA DO Unavailable Unavailable HUIZENGA, Karen GARCIA DO Unavailable Unavailable HUIZENGA, Karen GARCIA DO Unavailable Unavailable HUIZENGA, Karen GARCIA DO Unavailable Unavailable HUIZENGA, Karen GARCIA DO Unavailable Unavailable HUIZENGA, Karen GARCIA DO Unavailable Unavailable HUIZENGA, Karen GARCIA DO Unavailable Unavailable HUIZENGA, Karen GARCIA DO Unavailable Unavailable HUIZENGA, Karen GARCIA DO Unavailable Unavailable HUIZENGA, Karen GARCIA DO Unavailable Unavailable HUIZENGA, Karen GARCIA DO Unavailable Unavailable HUIZENGA, Karen GARCIA DO Unavailable Unavailable HUIZENGA, Karen GARCIA DO Unavailable Unavailable HUIZENGA, Karen GARCIA DO Unavailable Unavailable HUIZENGA, Karen GARCIA DO Unavailable Unavailable HUIZENGA, Karen GARCIA DO Unavailable Unavailable HUIZENGA, Karen GARCIA DO Unavailable Unavailable HUIZENGA, Karen GARCIA DO Unavailable Unavailable HUIZENGA, Karen GARCIA DO Unavailable Unavailable HUIZENGA, Karen GARCIA DO Unavailable Unavailable HUIZENGA, Karen GARCIA DO Unavailable Unavailable HUIZENGA, Karen GARCIA DO Unavailable Unavailable HUIZENGA, Karen GARCIA DO Unavailable Unavailable HUIZENGA, Karen GARCIA DO Unavailable Unavailable HUIZENGA, Karen GARCIA DO Unavailable Unavailable HUIZENGA, Karen GARCIA DO Unavailable Unavailable HUIZENGA, Karen GARCIA DO Unavailable Unavailable HUIZENGA, Karen GARCIA DO Unavailable Unavailable HUIZENGA, Karen GARCIA DO Unavailable Unavailable HUIZENGA, Karen GARCIA DO Unavailable Unavailable HUIZENGA, Karen GARCIA DO Unavailable Unavailable HUIZENGA, Karen GARCIA DO Unavailable Unavailable HUIZENGA, Karen GARCIA DO Unavailable Unavailable HUIZENGA, Karen GARCIA DO Unavailable Unavailable HUIZENGA, Karen GARCIA DO Unavailable Unavailable HUIZENGA, Karen GARCIA DO Unavailable Unavailable HUIZENGA, Karen GARCIA DO Unavailable Unavailable HUIZENGA, Karen GARCIA DO Unavailable Unavailable HUIZENGA, Karen GARCIA DO Unavailable Unavailable HUIZENGA, Karen GARCIA DO Unavailable Unavailable HUIZENGA, Karen GARCIA DO Unavailable Unavailable HUIZENGA, Karen GARCIA DO Unavailable Unavailable HUIZENGA, Karen GARCIA DO Unavailable Unavailable POOL DENSON PA Unavailable Unavailable POOL DENSON Unavailable Unavailable POOL DENSON PA Unavailable Unavailable POOL DENSON Unavailable Unavailable POOL DENSON PA Unavailable Unavailable POOL DENSON PA Unavailable Unavailable POOL DENSON PA Unavailable Unavailable POOL DENSON PA Unavailable Unavailable POOL DENSON PA Unavailable Unavailable POOL DENSON PA Unavailable Unavailable POOL DENSON PA Unavailable Unavailable JANIYA, POOL ERICA PA Unavailable Unavailable JANIYA, POOL ERICA PA Unavailable Unavailable JANIYA, POOL ERICA PA Unavailable Unavailable JANIYA, POOL ERICA PA Unavailable Unavailable JANIYA, POOL ERICA PA Unavailable Unavailable JANIYA, POOL ERICA PA Unavailable Unavailable JANIYA, POOL EIRCA PA Unavailable Unavailable JANIYA, POOL ERICA PA Unavailable Unavailable JANIYA, POOL ERICA PA Unavailable Unavailable JANIYA, POOL ERICA PA Unavailable Unavailable JANIYA, POOL ERICA PA Unavailable Unavailable Re-disclosure Warning The records that you are about to access may contain information from federally-assisted alcohol or drug abuse programs. If such information is present, then the following federally mandated warning applies: This information has been disclosed to you from records protected by federal confidentiality rules (42 CFR part 2). The federal rules prohibit you from making any further disclosure of this information unless further disclosure is expressly permitted by the written consent of the person to whom it pertains or as otherwise permitted by 42 CFR part 2. A general authorization for the release of medical or other information is NOT sufficient for this purpose. The Federal rules restrict any use of the information to criminally investigate or prosecute any alcohol or drug abuse patient.The records that you are about to access may contain highly sensitive health information, the redisclosure of which is protected by Article 27-F of the [facility] Public Health law. If you continue you may have access to information: Regarding HIV / AIDS; Provided by facilities licensed or operated by the [facility] Office of Mental Health; or Provided by the [facility] Office for People With Developmental Disabilities. If such information is present, then the following [facility] mandated warning applies: This information has been disclosed to you from confidential records which are protected by state law. State law prohibits you from making any further disclosure of this information without the specific written consent of the person to whom it pertains, or as otherwise permitted by law. Any unauthorized further disclosure in violation of state law may result in a fine or chcf sentence or both. A general authorization for the release of medical or other information is NOT sufficient authorization for further disc losure. Family History Family Member Name Family Member Gender Family Member Status Date o f Status Description Data Source(s) Unknown Unknown Problem [facility] ([facility]) mother,father Encounters Encounter Providers Location Date Indications Data Source(s ) Outpatient Attender: ERICA Francois/Precious/Kimani espinoza 03/31/2021 02:30:00 PM EDT [facility] ([facility]) Outpatient Attender: Allan VALDES [facility] 03/28/2021 08:00:00 AM EDT [facility] ([facility]) Outpatient Attender: CRUZ FULTON DO Family [facility] 03/25/2021 01:10:00 PM EDT [facility] ([facility]) Outpatient Attender: Gasper VALDES [facility] 01/25/2021 10:40:00 AM EDT [facility] ([facility]) Outpatient Attender: Gasper VALDES [facility] 12/28/2020 03:20:00 PM EDT [facility] ([facility]) Outpatient Attender: Gasper VALDES [facility] 12/21/2020 11:20:00 AM EDT [facility] ([facility]) Outpatient Attender: Santos BUENO Main Office 0 12/08/2020 12:30:00 PM EDT [facility] ([facility]) Outpatient Attender: Kimo Mckeon NPReferrer: Kimo Mckeon NP SJDennis.[email or web address] 11/22/2020 01:33:56 PM EDT - 11/22/2020 02:15:13 PM EDT [facility] Outpatient Attender: Santos BUENO Main Office 0 11/10/2020 05:45:00 PM EDT [facility] ([facility]) Outpatient Attender: Gasper VALDES [facility] 10/20/2020 08:20:00 AM EDT [facility] ([facility]) Outpatient Attender: Kimo Mckeon NP [email or web address]-SJP.GIULIA 03:09:59 PM EDT - 09/21/2020 03:43:21 PM EDT [facility] Outpatient Attender: CRUZ FULTON DO [facility] 07/06/2020 08:40:00 AM EST MED[facility] ([facility]) Outpatient Attender: CRUZ Prado r: CRUZ FULTON DO EMERGENCY ROOM-LABOTHPROV 07/01/2020 07:05:00 AM EST - 07/01/2020 07:05:00 AM [facility] Outpatient Attender: Maria Teresa BUENOC Main Office 06/21/2020 01:00:00 PM EST MED[facility] ([facility]) Outpatient Attender: Gasper VALDES [facility] 04/23/2020 01:10:00 PM EST MED[facility] ([facility]) Outpatient Attender: Kimo Mckeon NP SJP.GIULIA-SJP.GIULIA 020 12:00:00 AM EDT - 03/22/2020 04:26:40 PM EDT [facility] Emergency Attender: ERICA VALDES 08:20:00 AM EDT - 12/16/2017 08:59:00 AM [facility] Emergency Attender: ERICA VALDES EMERGENCY ROOM-ER 11/11/2015 03:32:00 PM EDT - 11/11/2015 05:19:00 PM [facility] Emergency Attender: KRISTA NUNEZ PAReferrer: JOSE WHITNEY DO 12/04/2013 03:30:00 PM EDT - 12/04/2013 04:40:00 PM T [facility] Immunizations Vaccine Date Status Description Data Source(s) COVID-19 VACCINE [place] 10/27/2020 12:00:00 AM EDT completed [facility] Vaccine Series Complete: YESThis Data wa s Submitted to [facility] Via [employer]. Medications Medication Brand Name Start Date Product Form Dose Route Admi nistrative Instructions Pharmacy Instructions Status Indications Reaction Description Data Source(s) Magnesium Hydroxide 80 MG/ML Oral Suspension Milk Of Magnesi a 03/31/2021 12:00:00 AM EDT ORAL active M EDENT ([facility], ) POLYETHYLENE GLYCOL 3350 142 MG/ML Oral Solution [Miralax] M iralax 03/31/2021 12:00:00 AM EDT active EDENT ([facility], ) Ondansetron 4 MG Oral Tablet Ondansetron HCL 03/28/2021 12:00:00 AM E DT ORAL active MEDENT ([facility]) Sucralfate 1000 MG Oral Tablet Sucralfate 03/25/2021 12:00:00 AM EDT active MED[facility] ([facility]) 24 HR Bupropion Hydrochloride 300 MG Extended Release Oral Tablet [Wellbutrin] Wellbutrin XL 01/25/2021 12:00:00 AM EDT ORAL active MED[facility] ([facility]) cetirizine hydrochloride 10 MG Oral Capsule [Zyrtec] Zyrtec Allergy 01/25/2021 12:00:00 AM EDT ORAL active EDENT ([facility]) Amoxicillin 875 MG Oral Tablet Amoxicillin 12/21/2020 12:00:00 AM EDT ORAL completed [facility] ([facility]) Betamethasone 0.0005 MG/MG Topical Ointment Betamethasone Di propionate 11/10/2020 12:00:00 AM EDT active [facility] ([facility]) Mupirocin 0.02 MG/MG Topical Ointment Mupirocin 11/10/2020 12:00:00 AM EDT active [facility] ([facility]) 12 HR Bupropion Hydrochloride 150 MG Ext ended Release Oral Tablet buPROPion (WELLBUTRIN SR) 150 MG 12 hr tablet buPROPion (WELLBUTRIN SR) 150 MG 12 hr tablet 09/19/2020 12:00:00 AM EDT active TAKE 1 TABLET BY MOUTH ONCE DAILY FOR 3 DAYS THEN 1 TAB TWICE DAILY [facility] Erythromycin 0.02 MG/MG Topical Gel erythromycin with ethanol (EMGEL) 2 % gel erythromycin with ethanol (EMGEL) 2 % gel 09/06/2020 12:00:00 AM EDT active APPLY TO BOTH FEET DAILY [facility] ezetimibe 10 MG Oral Tablet ezetimibe (ZETIA) 10 MG ta blet ezetimibe (ZETIA) 10 MG tablet 09/03/2020 12:00:00 AM EDT 10 mg Oral active Take 10 mg by mouth daily [facility] 24 HR Nicotine 0.875 MG/HR Transdermal Patch nicotine (NICODERM CQ) 21 MG/24HR nicotine (NICODERM CQ) 21 MG/24HR 08/06/2020 12:00:00 AM EST active APPLY 1 PATCH TOPICALLY EVERY 24 HOURS FOR 6 WEEKS [facility] 24 HR Nicotine 0.875 MG/HR Transdermal Patch [Nicoderm C-Q] Nicoderm CQ 08/04/2020 12:00:00 AM EST completed MED[facility] ([facility]) 12 HR Bupropion Hydrochloride 150 MG Extended Release Oral Tablet [Wellbutrin] Wellbutrin SR 08/04/2020 12:00:00 AM EST completed [facility] ([facility]) ezetimibe 10 MG Oral Tablet [Zetia] Zetia 07/27/2020 12:00:00 AM EST ORAL active MED[facility] ([facility]) Azelastine HCl 137 MCG/SPRAY SOLN 95148-456-89 07/06/2020 12:00:00 AM EST active [facility] Prednisone 20 MG Oral Tablet Prednisone 07/06/2020 12:00:00 AM EST ORAL completed MEDENT ([facility]) Azelastine HCL (Nasal) Azelastine HCL (Nasal) 07/06/2020 12:00:[address] active MED[facility] ([facility]) 24 HR Nicotine 0.583 MG/HR Transdermal Patch Nicotine Transdermal System Step 2/Clear 04/23/2020 12:00:00 AM EST completed [facility] ([facility]) Amoxicillin 875 MG / Clavulanate 125 MG Oral Tablet Am oxicillin/Clavulanate Potassium 04/23/2020 12:00:00 AM EST ORAL completed [facility] ([facility]) tramadol hydrochloride 50 MG Oral Tablet traMADol (ULT KENIA) 50 MG tablet traMADol (ULTRAM) 50 MG tablet 03/09/2020 12:00:00 AM EDT active TAKE 1 TABLET BY MOUTH TWICE DAILY NEEDED . DO NOT EXCEED 2 PER 24 HOURS [facility] pitavastatin 2 MG Oral Tablet [Livalo] LIVALO 2 MG TABS LIVA LO 2 MG TABS 02/14/2020 12:00:00 AM EDT 1 {tbl} Oral aborted Take 1 tablet by mouth daily [facility] Naproxen 500 MG Oral Tablet naproxen (NAPROSYN) 500 MG tablet naproxen (NAPROSYN) 500 MG tablet 02/14/2020 12:00:00 AM EDT 500 mg Oral aborted Take 500 mg by mouth as needed [facility] 24 HR Nicotine 0.875 MG/HR Transdermal Patch [Nicoderm C-Q] Nicoderm CQ 01/02/2020 12:00:00 AM EDT completed MED[facility] ([facility]) Clobetasol Propionate 0.5 MG/ML Topical Foam clobetasol (OLUX) 0.05 % topical foam clobetasol (OLUX) 0.05 % topical foam 05/29/2017 12:00:00 AM EST aborted CLOBETASOL PROPIONATE 0.05 % FOA M [facility] Crisaborole (EUCRISA) 2 % OINT [id number] 1 {application} A pply externally aborted Apply 1 application topically da jaymie as needed (for eczema) [facility] Insurance Providers Payer name Policy type / Coverage type Policy ID Covered alliance party ID Covered alliance party's relationship to foote Policy Foote Plan Information EXCELLUS BCBS MEDICAID [id number] Teena [id number] [employer]LLUS BCBS MEDICAID xxxxxxxxxxxx BCBS ESSENTIAL [id number] S YN [id number] [place] 305/[id number] SP [id number] BCBS HMO BLUE [id number] S YNC [id number] BCBS ESSENTIAL [id number] S YN [id number] BCBS HMO BLUE [id number] S [place] [id number] HMO BLUE [id number] SP [id number] [place] Essential [place] 1 [id number] Self Essential Plan 1 Blue Cross Blue Shield P [id number] SELF [id number] [facility] Plan Commercial [id number] Self [id number] [facility] Plan Commercial [id number] Self [id number] [employer] U/W Commercial [id number] Self [id number] [place]AT[place] 306/806 [id number] SP [id number] [employer] U/W Commercial [id number] Self YN [id number] [employer] U/W Commercial [id number] Self YN [id number] [employer] U/W Commercial [id number] Self YN [id number] [employer]CELL[employer] BCBS B [id number] S [id number] [employer] U/W Commercial [id number] Self YN [id number] [employer] U/W Commercial [id number] Self YN [id number] [employer] U/W Commercial [id number] Self YN [id number] [place]AT[place] 306/806 [id number] SP [id number] [employer] U/W Commercial [id number] Self YN [id number] BCBS/[employer] Commercial [id number] Self [id number] [employer] U/W Commercial [id number] Self YN [id number] BCBS HMO BLUE BC [id number] S YNC [id number] [employer] U/W Commercial [id number] Self YN [id number] [employer] U/W Commercial [id number] Self YN [id number] [employer] U/W Commercial [id number] Self YN [id number] [employer] U/W Commercial 9 Self MILY CARE [id number] S [id number] MILY CARE [id number] S [id number] [place] 306/806 [id number] SP [id number] SELF PAY SP UNAVAILABLE S UNAVAILA BLE [place]BS [place] BC [id number] S TNY [id number] SELF-PAY UNAVAILABLE UNAVAILA BLE MIYL CARE [facility] HMO [id number] S [id number] [place] DISCT 60% OF CAP CHGS SP [id number] S [id number] SELF-PAY [id number] S [id number] SELF PAY ON CONTRACT UNAVAILABLE S UNAVAILABLE [facility] [id number] S [id number] [place] DISCT 60% OF CAP CHGS SP UNAVAILABLE S UNAVAILABLE [place] DISCT 40% OF CAP CHGS SP UNAVAILABLE S UNAVAILABLE SELF PAY SP [id number] S [id number] BCBS JAMES O [id number] SP [id number] [place] DISCT 80% OF CAP CHGS SP LURDES GUZMÁN S LURDES GUZMÁN BCBS [place] WAT[place] 306/806 [id number] SP [id number] [facility] [id number] SP [id number] SELF PAY AUSTEN Harper [id number] S [id number] [place]BS [place] [id number] S YNC [id number] [facility] U/W Commercial [id number] Self [id number] ANSI-Commercial [id number] ANSI-Not a Secondary Insurance [id number] [facility] [id number] SP [id number] ANSI-Not a Secondary Insurance [id number] ANSI-Commercial [id number] SELF PAY ONLY Problems, Conditions, and Diagnoses Code Display Name Description Problem Type Effective Dates Data Source(s) I71.2 Thoracic aortic aneurysm, without ruptur e Thoracic aortic aneurysm, without ruptur Diagnosis 11/22/2020 01:33:56 PM EDT [facility] I10 Essential (primary) hypertension Essential (primary) h ypertension Diagnosis 09/21/2020 03:09:59 PM EDT [facility] I73.9 Peripheral vascular disease, unspecified Peripheral vascular disease, unspecified Diagnosis 09/21/2020 03:09:59 PM EDT [facility] E78.5 Hyperlipidemia, unspecified Hyperlipidemia, unspecifie d Diagnosis 09/21/2020 03:09:59 PM EDT [facility] E55.9 Vitamin D deficiency, unspecified VITAMIN D DEFI CIENCY, UNSPECIFIED Diagnosis 07/01/2020 07:05:00 AM [facility] Z13.0 Encounter for screening for diseases of the blood and blood-forming organs and certain disorders involving the immune mechanism ENCNTR SCREEN FOR DIS OF THE BLD/BLD-FOR Diagnosis 07/01/2020 07:05:00 AM [facility] Z13.29 Encounter for screening for other suspec lillie endocrine disorder ENCOUNTER FOR SCREENING FOR OTH SUSPECTE Diagnosis 07/01/2020 07:05:00 AM [facility] R73.03 PREDIABETES PREDIABETES Diagnosis 07/01/2020 07:05:00 AM [facility] E78.00 PURE HYPERCHOLESTEROLEMIA, UNSPECIFIED P URE HYPERCHOLESTEROLEMIA, UNSPECIFIED Diagnosis 07/01/2020 07:05:00 AM [facility] Surgeries/Procedures Procedure Description Date Indications Data Source(s) OFFICE OUTPATIENT NEW 45 MINUTES 03/31/2021 12:00:00 A M EDT [facility] ([facility], ) OFFICE OUTPATIENT VISIT 15 MINUTES 03/28/2021 12:00:00 AM EDT MED[facility] ([facility]) OFFICE OUTPATIENT VISIT 25 MINUTES 03/25/2021 12:00:00 AM EDT [facility] ([facility]) OFFICE OUTPATIENT VISIT 25 MINUTES 01/25/2021 12:00:00 AM EDT MED[facility] ([facility]) OFFICE OUTPATIENT VISIT 15 MINUTES 12/28/2020 12:00:00 AM EDT [facility] ([facility]) OFFICE OUTPATIENT VISIT 25 MINUTES 12/21/2020 12:00:00 AM EDT MED[facility] ([facility]) OFFICE OUTPATIENT VISIT 15 MINUTES 12/08/2020 12:00:00 AM EDT [facility] ([facility]) OFFICE OUTPATIENT VISIT 25 MINUTES 11/10/2020 12:00:00 AM EDT [facility] ([facility]) OFFICE OUTPATIENT VISIT 15 MINUTES 10/20/2020 12:00:00 AM EDT [facility] ([facility]) OFFICE OUTPATIENT VISIT 15 MINUTES 07/06/2020 12:00:00 AM EST [facility] ([facility]) PERIODIC PREVENTIVE MED EST PATIENT 40-64YRS 12:00:00 AM EST MED[facility] ([facility]) OFFICE OUTPATIENT VISIT 5 MINUTES 06/21/2020 12:00:00 AM EST [facility] ([facility]) EXC B9 LES MRGN XCP SK TG F/E/E/N/L/M 1.1-2.0CM 2020 12:00:00 AM EST [facility] ([facility]) Results ID Date Data Source [id number] 04/25/2021 09:50:00 AM EST MED[facility] ([facility]) Name Value Range Interpretation Code Description Data Lyla rce(s) Supporting Document(s) Coronavirus 2019 Nasopharygeal Laboratory test result [facility] ([facility]) ASSAY INFORMATION: Real Time RT-PCR NOTE: The COVID-19 assay has been cleared by the U.S. Food and Drug Administration under the Emergency Use Authorization (EUA). [facility] and [employer] are designated as high complexity laboratories by the Clinical Laboratory Improvement Amendments of 1988(CLIA) and are qualified to perform this test. Not Detected ID Date Data Source [id number] 03/28/2021 10:28:00 AM EDT MED[facility] ([facility]) Name Value Range Interpretation Code Description Data Lyla rce(s) Supporting Document(s) Ast/Sgot 13 U/L 7-37 Normal (applies to non-numeric resul ts) [facility] ([facility]) Alt/SGPT 25 U/L 12-78 Normal (applies to non-numeric resul ts) [facility] ([facility]) Alkaline Phosphatase 56 U/L 45-117 Normal (applies to non-num erica results) [facility] ([facility]) Bilirubin,Total 0.2 mg/dL 0.2-1.0 Normal (applies to non-numeric results) [facility] ([facility]) Bilirubin,Direct Laboratory test result 0.0-0.2 Normal ( applies to non-numeric results) [facility] ([facility]) Albumin 3.6 GM/DL 3.2-5.2 Normal (applies to non-numeric resul ts) [facility] ([facility]) Total Protein 7.0 GM/DL 6.4-8.2 Normal (applies to non-numeric re sults) [facility] ([facility]) Albumin/Globulin Ratio 1.1 1.2-2.2 Below low normal [facility] ([facility]) ID Date Data Source [id number] 03/28/2021 10:28:00 AM EDT [facility] ([facility]) Name Value Range Interpretation Code Description Data Lyla rce(s) Supporting Document(s) Lipase [Enzymatic activity/volume] in Serum or Plasma 166 U/L 73-393 Normal (applies to non-numeric results) [facility] ([facility]) ID Date Data Source [id number] 03/28/2021 10:28:00 AM EDT [facility] ([facility]) Name Value Range Interpretation Code Description Data Lyla rce(s) Supporting Document(s) Glucose, Fasting 82 mg/dL 70-100 Normal (applies to non-numeric results) [facility] ([facility]) Blood Urea Nitrogen 12 mg/dL 7-18 Normal (applies to non-nume shyla results) [facility] ([facility]) Creatinine For GFR 0.92 mg/dL 0.55-1.30 Normal (applies to non -numeric results) [facility] ([facility]) Glomerular Filtration Rate Laboratory test result Normal (applies to non- numeric results) [facility] ([facility]) <content>Units are mL/min/1.73 m2</content>
<content></content>
<content>Chronic Kidney Disease Staging per NKF:</content>
<content></content>
<content>Stage I & II GFR >=60 Normal to Mildly Decreased</content>
<content>Stage III GFR 30-59 Moderately Decreased</content>
<content>Stage IV GFR 15-29 Severely Decreased</content>
<content>Stage V GFR <15 Very Little GFR Left</content>
<content>ESRD GFR <15 on SLD INCLUSION TEACHER</content>
<content></content> Sodium Level 143 meq/L 136-145 Normal (applies to non-numeric res ults) [facility] ([facility]) Potassium Serum 4.2 meq/L 3.5-5.1 Normal (applies to non-numeric results) [facility] ([facility]) Chloride Level 114 meq/L 98-107 Above high normal [facility] ([facility]) Anion Gap 3 meq/L 8-16 Below low normal [facility] ( [facility]) Carbon Dioxide Level 26 meq/L 21-32 Normal (applies to non-num erica results) [facility] ([facility]) Calcium Level 9.1 mg/dL 8.5-10.1 Normal (applies to non-numeric re sults) [facility] ([facility]) ID Date Data Source [id number] 03/28/2021 10:28:00 AM EDT [facility] ([facility]) Name Value Range Interpretation Code Description Data Lyla rce(s) Supporting Document(s) Red Blood Count 4.50 10 4.00-5.40 Normal (applies to non-numeric results) [facility] ([facility]) White Blood Count 4.2 10 4.0-10.0 Normal (applies to non-numeri c results) [facility] ([facility]) Hemoglobin 14.1 g/dL 12.0-15.5 Normal (applies to non-numeric resul ts) [facility] ([facility]) Hematocrit 42.6 % 36.0-47.0 Normal (applies to non-numeric resul ts) [facility] ([facility]) Mean Corpuscular Volume 94.7 fl 80.0-96.0 Normal ( applies to non-numeric results) [facility] ([facility]) Mean Corpuscular Hemoglobin 31.3 pg 27.0-33.0 Norm al (applies to non-numeric results) [facility] ([facility]) Mean Corpuscular HGB Conc 33.1 g/dL 32.0-36.5 Normal (applies to non-numeric results) [facility] ([facility]) Red Cell Distribution Width 15.0 % 11.5-14.5 Above high normal [facility] ([facility]) Platelet Count, Automated 238 10 150-450 Normal (applies to non-numeric results) [facility] ([facility]) Neutrophils % 41.0 % 36.0-66.0 Normal (applies to non-numeric re sults) [facility] ([facility]) Lymph % 41.7 % 24.0-44.0 Normal (applies to non-numeric resul ts) [facility] ([facility]) [place] % 9.0 % 2.0-8.0 Above high normal [facility] ([facility]) Eos % 7.1 % 0.0-3.0 Above high normal [facility] ([facility]) Baso % 1.2 % 0.0-1.0 Above high normal [facility] ([facility]) Immature Granulocyte % 0.0 % 0-3.0 Normal (applies to non-n umeric results) [facility] ([facility]) Nucleated Red Blood Cell % 0.0 % 0-0 Normal (applies to n on-numeric results) [facility] ([facility]) Lymph # 1.8 10 1.5-5.0 Normal (applies to non-numeric resul ts) [facility] ([facility]) Neutrophils # 1.7 10 1.5-8.5 Normal (applies to non-numeric re sults) [facility] ([facility]) Eos # 0.3 10 0.0-0.5 Normal (applies to non-numeric resul ts) [facility] ([facility]) [place] # 0.4 10 0.0-0.8 Normal (applies to non-numeric resul ts) [facility] ([facility]) Baso # 0.1 10 0.0-0.2 Normal (applies to non-numeric resul ts) [facility] ([facility]) ID Date Data Source [id number] 03/25/2021 10:47:00 AM EDT [facility] ([facility]) Name Value Range Interpretation Code Description Data Lyla rce(s) Supporting Document(s) Blood group antibodies identified in Serum or Plasma Laboratory test result Normal (applies to non-numeric results) [facility] ([facility]) ID Date Data Source [id number] 03/25/2021 10:47:00 AM EDT [facility]) Name Value Range Interpretation Code Description Data Lyla rce(s) Supporting Document(s) Blood Type Laboratory test result Normal (applies to non-n umeric results) [facility] ([facility]) AB Screen (Indirect Teri)Vis Laboratory test result Normal (applies to non- numeric results) [facility] ([facility]) ID Date Data Source [id number] 03/25/2021 10:47:00 AM EDT [facility]) Name Value Range Interpretation Code Description Data Lyla rce(s) Supporting Document(s) Lipase [Enzymatic activity/volume] in Serum or Plasma 231 U/L 73-393 Normal (applies to non-numeric results) [facility] ([facility]) ID Date Data Source [id number] 03/25/2021 10:47:00 AM EDT [facility]) Name Value Range Interpretation Code Description Data Lyla rce(s) Supporting Document(s) Ast/Sgot 13 U/L 7-37 Normal (applies to non-numeric resul ts) [facility] ([facility]) Alt/SGPT 24 U/L 12-78 Normal (applies to non-numeric resul ts) [facility] ([facility]) Bilirubin,Total 0.2 mg/dL 0.2-1.0 Normal (applies to non-numeric results) [facility] ([facility]) Alkaline Phosphatase 54 U/L 45-117 Normal (applies to non-num erica results) [facility] ([facility]) Bilirubin,Direct Laboratory test result 0.0-0.2 Normal ( applies to non-numeric results) [facility] ([facility]) Total Protein 6.8 GM/DL 6.4-8.2 Normal (applies to non-numeric re sults) [facility] ([facility]) Albumin/Globulin Ratio 1.1 1.2-2.2 Below low normal [facility] ([facility]) Albumin 3.5 GM/DL 3.2-5.2 Normal (applies to non-numeric resul ts) [facility] ([facility]) ID Date Data Source [id number] 03/25/2021 10:47:00 AM EDT [facility] ([facility]) Name Value Range Interpretation Code Description Data Lyla rce(s) Supporting Document(s) Glucose, Fasting 97 mg/dL 70-100 Normal (applies to non-numeric results) [facility] ([facility]) Blood Urea Nitrogen 12 mg/dL 7-18 Normal (applies to non-nume shyla results) [facility] ([facility]) Creatinine For GFR 0.78 mg/dL 0.55-1.30 Normal (applies to non -numeric results) [facility] ([facility]) Glomerular Filtration Rate Laboratory test result Normal (applies to non- numeric results) [facility] ([facility]) <content>Units are mL/min/1.73 m2</content>
<content></content>
<content>Chronic Kidney Disease Staging per NKF:</content>
<content></content>
<content>Stage I & II GFR >=60 Normal to Mildly Decreased</content>
<content>Stage III GFR 30-59 Moderately Decreased</content>
<content>Stage IV GFR 15-29 Severely Decreased</content>
<content>Stage V GFR <15 Very Little GFR Left</content>
<content>ESRD GFR <15 on SLD INCLUSION TEACHER</content>
<content></content> Sodium Level 145 meq/L 136-145 Normal (applies to non-numeric res ults) [facility] ([facility]) Chloride Level 114 meq/L 98-107 Above high normal [facility] ([facility]) Potassium Serum 3.8 meq/L 3.5-5.1 Normal (applies to non-numeric results) [facility] ([facility]) Carbon Dioxide Level 27 meq/L 21-32 Normal (applies to non-num erica results) [facility] ([facility]) Anion Gap 4 meq/L 8-16 Below low normal [facility] ( [facility]) Calcium Level 8.8 mg/dL 8.5-10.1 Normal (applies to non-numeric re sults) [facility] ([facility]) ID Date Data Source [id number] 03/25/2021 10:47:00 AM EDT [facility] ([facility]) Name Value Range Interpretation Code Description Data Lyla rce(s) Supporting Document(s) White Blood Count 5.4 10 4.0-10.0 Normal (applies to non-numeri c results) [facility] ([facility]) Red Blood Count 4.55 10 4.00-5.40 Normal (applies to non-numeric results) [facility] ([facility]) Mean Corpuscular Volume 93.8 fl 80.0-96.0 Normal ( applies to non-numeric results) [facility] ([facility]) Hemoglobin 14.3 g/dL 12.0-15.5 Normal (applies to non-numeric resul ts) [facility] ([facility]) Hematocrit 42.7 % 36.0-47.0 Normal (applies to non-numeric resul ts) [facility] ([facility]) Mean Corpuscular Hemoglobin 31.4 pg 27.0-33.0 Norm al (applies to non-numeric results) [facility] ([facility]) Mean Corpuscular HGB Conc 33.5 g/dL 32.0-36.5 Normal (applies to non-numeric results) [facility] ([facility]) Platelet Count, Automated 239 10 150-450 Normal (applies to non-numeric results) [facility] ([facility]) Red Cell Distribution Width 14.7 % 11.5-14.5 Above high normal [facility] ([facility]) Neutrophils % 42.2 % 36.0-66.0 Normal (applies to non-numeric re sults) [facility] ([facility]) Lymph % 40.6 % 24.0-44.0 Normal (applies to non-numeric resul ts) [facility] ([facility]) [place] % 9.6 % 2.0-8.0 Above high normal [facility] ([facility]) Eos % 6.1 % 0.0-3.0 Above high normal [facility] ([facility]) Baso % 1.1 % 0.0-1.0 Above high normal [facility] ([facility]) Immature Granulocyte % 0.4 % 0-3.0 Normal (applies to non-n umeric results) [facility] ([facility]) Nucleated Red Blood Cell % 0.0 % 0-0 Normal (applies to n on-numeric results) [facility] ([facility]) Neutrophils # 2.3 10 1.5-8.5 Normal (applies to non-numeric re sults) [facility] ([facility]) Lymph # 2.2 10 1.5-5.0 Normal (applies to non-numeric resul ts) [facility] ([facility]) [place] # 0.5 10 0.0-0.8 Normal (applies to non-numeric resul ts) [facility] ([facility]) Eos # 0.3 10 0.0-0.5 Normal (applies to non-numeric resul ts) [facility] ([facility]) Baso # 0.1 10 0.0-0.2 Normal (applies to non-numeric resul ts) [facility] ([facility]) ID Date Data Source [id number] 12/28/2020 03:23:00 PM EDT [facility] ([facility]) Name Value Range Interpretation Code Description Data Lyla rce(s) Supporting Document(s) Bacteria identified in Throat by Culture Laboratory test result Normal (applies to non-numeric results) [facility] ([facility]) FULL REPORT IN LAB NOTES ([facility] and [facility] ). NORMAL ELIAZAR PRESENT ID Date Data Source [id number] 12/21/2020 12:26:00 PM EDT [facility] ([facility]) Name Value Range Interpretation Code Description Data Lyla rce(s) Supporting Document(s) Red Blood Count 4.27 10 4.00-5.40 Normal (applies to non-numeric results) [facility] ([facility]) White Blood Count 4.4 10 4.0-10.0 Normal (applies to non-numeri c results) [facility] ([facility]) Hemoglobin 13.3 g/dL 12.0-15.5 Normal (applies to non-numeric resul ts) [facility] ([facility]) Hematocrit 40.7 % 36.0-47.0 Normal (applies to non-numeric resul ts) [facility] ([facility]) Mean Corpuscular Hemoglobin 31.1 pg 27.0-33.0 Norm al (applies to non-numeric results) [facility] ([facility]) Mean Corpuscular Volume 95.3 fl 80.0-96.0 Normal ( applies to non-numeric results) [facility] ([facility]) Mean Corpuscular HGB Conc 32.7 g/dL 32.0-36.5 Normal (applies to non-numeric results) [facility] ([facility]) Red Cell Distribution Width 14.5 % 11.5-14.5 Norm al (applies to non-numeric results) [facility] ([facility]) Neutrophils % 41.7 % 36.0-66.0 Normal (applies to non-numeric re sults) [facility] ([facility]) Platelet Count, Automated 269 10 150-450 Normal (applies to non-numeric results) [facility] ([facility]) [place] % 9.2 % 2.0-8.0 Above high normal [facility] ([facility]) Lymph % 39.8 % 24.0-44.0 Normal (applies to non-numeric resul ts) [facility] ([facility]) Eos % 8.2 % 0.0-3.0 Above high normal [facility] ([facility]) Immature Granulocyte % 0.2 % 0-3.0 Normal (applies to non-n umeric results) [facility] ([facility]) Baso % 0.9 % 0.0-1.0 Normal (applies to non-numeric resul ts) [facility] ([facility]) Nucleated Red Blood Cell % 0.0 % 0-0 Normal (applies to n on-numeric results) [facility] ([facility]) Neutrophils # 1.8 10 1.5-8.5 Normal (applies to non-numeric re sults) [facility] ([facility]) [place] # 0.4 10 0.0-0.8 Normal (applies to non-numeric resul ts) [facility] ([facility]) Lymph # 1.7 10 1.5-5.0 Normal (applies to non-numeric resul ts) [facility] ([facility]) Baso # 0.0 10 0.0-0.2 Normal (applies to non-numeric resul ts) [facility] ([facility]) Eos # 0.4 10 0.0-0.5 Normal (applies to non-numeric resul ts) [facility] ([facility]) ID Date Data Source [id number] 12/21/2020 12:26:00 PM EDT [facility] ([facility]) Name Value Range Interpretation Code Description Data Lyla rce(s) Supporting Document(s) Lactate dehydrogenase [Enzymatic activit y/volume] in Serum or Plasma by Lactate to pyruvate reaction 136 U/L 84-246 Normal (applies to non-numeric re sults) [facility] ([facility]) ID Date Data Source [id number] 11/22/2020 07:03:03 PM EDT [facility] Name Value Range Interpretation Code Description Data Lyla rce(s) Supporting Document(s) &PDF [facility] EBANDv6gPnAFPzNc27/RMGufTHSeu9QfOBzvJTj4JBjuAIYfY4DogGcmFGMDZlIUFOHRLPYBZV6MATdD lYX [file] Elena [file] dO+real estate broker associate/IJXS4xIPV6mxN2jOQVEbTyZkegZZpK7zYHobHrTdvC57qG2oKqICfO7VggcV3SVKuc8btTBN2 [file] VD3PDsQxNq1LTgRdd4GxEFHnFPbGxPXcRSIfUyRWLNWe/5+HxBV++f//hand splitter+458aQSPjX8F2YKk+JyD3 [file] ICAgICAgICAgICAgICAgICAgICAgICAgICAgICAgICAgICAgICAgICAgICAgICAgICAgICAgICAgICAg BMBwZOAdNSLjSXDhED5WPNFzECVuVTMiHVJtHSFjSJ AgICAgICAgICAgICAgICAgICAgICAgICAgICAgICAgICAgICAgICAgICAgICAgICAgICAgICAgICAgIC GuQZZcXZXcAUTwBCRrLPInZCGnPQGnSO7WQCNiERVlLXRiXUAkSNGaBLDaDXGbMPZoCCNbWFKuDPZaID AgICAgICAgICAgICAgICAgICAgICAgICAgICAgICAg BOKbOLUjTQWnJHAfQEZgEJNxBUIhZHWnJNDmJUYkXUIuVT0UMVZwBJZoYORuNYTsDRXzOBGtQTRfNDWv ICAgICAgICAgICAgICAgICAgICAgICAgICAgICAgICAgICAgICAgICAgICAgICAgICAgICAgICAgICAg KCZeBHAtJDAnSBLaAAKhVO7GKZPcETSrKYChSUZmYJ AgICAgICAgICAgICAgICAgICAgICAgICAgICAgICAgICAgICAgICAgICAgICAgICAgICAgICAgICAgIC ApTGPuDYNoTHXhJBNkOGWiHDRcAZBnKEDkQY5NZIVrGGNkSAGiZKFvBLSyIMVjUPNrNVCjMAJjZWLxNY AgICAgICAgICAgICAgICAgICAgICAgICAgICAgICAg XNRxDUJsHATcYXQjSNYlNINgMDKeZCQiFONhSYYxKGErKJFyLI3DVEWaWCZsRNSfGLTuPDPdVOPcRFQp ICAgICAgICAgICAgICAgICAgICAgICAgICAgICAgICAgICAgICAgICAgICAgICAgICAgICAgICAgICAg DLNnHAGoTGMhPCVcVJNaAUTsMW1BQUKsRKNoQOYySV AgICAgICAgICAgICAgICAgICAgICAgICAgICAgICAgICAgICAgICAgICAgICAgICAgICAgICAgICAgIC WhIFJoPOCiNKEbZZFqGUKqZGXqBHBbJLBtZKJgBZ4MNFVfYGHmWPMuTKZbXPArOCVkYOFtGUBqWJRmNT AgICAgICAgICAgICAgICAgICAgICAgICAgICAgICAg ZNKrETGeAPWpNUSxRDRnCQTbJLUcRCObLCHkOCKuHATwSZViZIYfZR0MGACuUQOzDZAlOSNnKVJaKOZt ICAgICAgICAgICAgICAgICAgICAgICAgICAgICAgICAgICAgICAgICAgICAgICAgICAgICAgICAgICAg WKVpEXRoZTQwSTHlODMjELZfEJZxSW1DCH69cSAhx5 E8WKCnWG8bgxt/Lx5BDCygenLghBXmYL5OSgGkHU1cvy0SYzMrSJ8hyo1BHGwWImLpC7Z3gCDjJXJsXK DZTeNqW61rJPseDe78THxtIHFhLpBqDMg7Hl4XBdGeV5wcQVQbCjH5JIQwKzQ9DXGoZaQkATbiNW0Si1 VudCAyDQo+Fx1TJC0fn5FxHSlsEAZyJF2nkr4EKHjU DwAhU1S5nFIdG4B9PMtvZw5NPQMzVRTqZpMxFDLYSBxqUL5KZB9zjeV1LY6RcAXhYVWaBKSjyHFlQZr0 N73exHUbWKxbWX6YFHC+Rachelle+Gp6VHMGlNSKnAFIlAmOcOVECHvNoY83sxQJiXEPyTTM3BXQrWb4IBCUd A5HpdoYdxMaoxyVgNBQaKPLQOE2AZZvxjfLnbNZsaH xsPW23wAlwFS4YCg2KCmOjOV2bxb0DqIDrSq3IGBWoVE4QOADeQNBnSKKlYIK4OUAhCwHlCXimCESsQC PbAHT6RMTiHBMgLD5KPpRhPFNmJEP3CWyyZBIrDJUeco6WWYHeBDUnDaF7NEGnUPTvGLCoISpyRWGjEA WkPGu6AWXjMGYpFA5VReWiWPZkJQU8BmeqOYYwRFDm ks7DRRBqGKFmMJC5WuWxWYGxCJMqQDdyIMRcZWE7MIU6OCBgUJVgJE2PNcHdENEuJKpdDwQfYTJnIXIh xh9FJFRqRRJrFLUsSYKcATQcTGVfMLftUPGgSKM5VGU1TJLcXNGiQW0EHzQcMKNuQDa8RYtmJENrJXRu bn0ACXUlBDWzGFH1LlTxXQHeLZIhJXqvZEZoDIU4Yy N7YCRzDYHwGP9PVxGeNWCgEGp3GJckLCItWNHosg8PSVPgEOMrBTylQKSnYBDwXFZbTCpgANUfXMUpHY G1LVDwXWKwHL3XZuEbJDSiCGCfNHWyVOHzKIJtdt9PGEIkWHBqTkG6HNPvJUIjLZLcDBluIBEmPTDkSZ PaBGApMIYiKX1SDuOxZWNuGAJ8FicqCNRuAPUdls1T WBIfUQDhTbm3KYOzEBNfGHYaGLfuRPOvNHCmFdO7AAMwBJShUP9HRyRkFKPjCGY9XkIoMOSyUXEein6D TGDjXBKpThv3SkNhEGXmRDTpSSfjQMVdDQN3NQH0MITjZQEyIY1UEcYxREJfIEUiWRBzYSRvZKHjkc7D GPVkPKOwEBrfWRGoUKFxNZXkKFdxLFLaXNU9IfV2PB RmZTUfQS6ZFoQxMSeuAGTVJtn3KTwqC3d8PLLeLH3NM7Cbr9HcArivVSECAGyrEE6jvyYuSFWhUs0ID5 kFKzvtEkLhQgX9LLp3KfNxWVY2YyLqDXV3BrQoUER2ECK1Sr1bEIKnUfJfKMq2AMFhO1Y7VuebMmBuLL tjW1H9FpjvGzMfNeUyEQ3WAw4ZLhC3CCI5jDGzBw0VWDJ9KxUNZoKzUN7SXRb= ID Date Data Source [id number] 07/01/2020 07:06:00 AM EST [facility] ([facility]) Name Value Range Interpretation Code Description Data Lyla rce(s) Supporting Document(s) Vitamin D, 25-Hydroxy 55.6 ng/mL 30.0-100.0 [facility] ([facility]) Vitamin D deficiency has been defined by the [place] of [employer] and an Endocrine Society practice guideline as a level of serum 25-OH vitamin D less than 20 ng/mL (1,2). The Endocrine Society went on to further define vitamin D insufficiency as a level between 21 and 29 ng/mL (2). 1. IOM ([place] of [employer]). 2010. Di etary reference intakes for calcium and D. [place]: The National Academies Press. 2. Gadiel MF, Orin VAUGHN, Yolanda romero CORDOBA, et al. Evaluation, treatment, and prevention of vitamin D deficiency: an Endocrine Society clinical practice guideline. JCEM. 2010; 96(7):1911-30. Performed at: RN - [facility] [address] [id number] Manager Workers Compensation: Jeannette Sutton MD, Phone: [phone] ID Date Data Source [id number] 07/01/2020 07:06:00 AM EST [facility] ([facility]) Name Value Range Interpretation Code Description Data Lyla rce(s) Supporting Document(s) WBC 5.0 K/mm3 4.0-10.0 [facility] ([facility]) RBC 4.46 M/mm3 4.00-5.50 [facility] ([facility]) MCV 91.0 fl 80-96 [facility] ([facility]) HCT 40.6 % 36.0-48.8 [facility] ([facility]) HGB 13.9 gm/dL 12.0-16.0 [facility] ([facility]) RDW 14.1 % 10.0-14.5 [facility] MCH 31.2 pg 27.0-31.0 Above high normal [facility] ([facility]) MCHC 34.2 g/dL 32.0-36.0 [facility] ([facility]) PLT 264 K/mm3 172-450 [facility] ([facility]) MPV 9.9 fl 9.0-13.0 [facility] ([facility]) GR% 42.7 % 50-80.0 Below low normal [facility] ( [facility]) Ly% 43.5 % 25.0-50.0 [facility] ([facility]) Ig% 0.2 % 0.0-0.2 [facility] ([facility]) Mo% 8.0 % 2.0-10.0 [facility] ([facility]) Eo% 5.2 % 0-5.0 Above high normal [facility] ([facility]) Ig# 0.0 K/mm3 0.0-0.2 [facility] ([facility]) GR# 2.2 K/mm3 2.0-8.00 [facility] ([facility]) Ba% 0.4 % 0.0-2.0 [facility] ([facility]) Mo# 0.4 K/mm3 0.10-1.20 [facility] ([facility]) Ly# 2.2 K/mm3 1.0-5.0 [facility] ([facility]) Ba# 0.0 K/mm3 0.0-0.2 [facility] ([facility]) Eo# 0.3 K/mm3 0.0-0.5 [facility] ([facility]) ID Date Data Source [id number] 07/01/2020 07:06:00 AM EST [facility] ([facility]) Name Value Range Interpretation Code Description Data Lyla rce(s) Supporting Document(s) Thyrotropin [Units/volume] in Serum or Plasma 1.739 uIU/mL 0.36-3.74 [facility] ([facility]) FAX [phone] ID Date Data Source [id number] 07/01/2020 07:06:00 AM EST [facility] ([facility]) Name Value Range Interpretation Code Description Data Lyla rce(s) Supporting Document(s) Glu 91 mg/dL 74-106 [facility] ([facility]) Cre 1.01 mg/dL 0.6-1.0 Above high normal [facility] ([facility]) BUN 23 mg/dL 7-18 Above high normal [facility] ([facility]) CL 105 mmol/L 98-107 [facility] ([facility]) Na 140 mmol/L 136-145 [facility] ([facility]) K 3.9 mmol/L 3.5-5.1 [facility] ([facility]) Co2 24 mmol/L 21-32 [facility] ([facility]) Gap 11.0 mmol/L 5-12 [facility] ([facility]) CA 9.5 mg/dL 8.5-10.1 [facility] ([facility]) GFR 59 mL/min [facility] ([facility]) <content>GFR IS CALCULATED IN mL/min/1.73m2</content>
<content></content>
<content>NORMAL FUNCTION: >90</content>
<content>MILDLY DECREASED: 60-89</content>
<content>MILDY TO MODERATELY DECREASED: 45-59</content>
<content>MODERATELY TO SEVERELY DECREASED: 30-44</content>
<content>SEVERELY DECREASED: 15- 29</content>
<content>RENAL FAILURE: <15</content>
<content></content> Ast 13 U/L 15-37 Below low normal [facility] ( [facility]) Alt 21 U/L 12-78 [facility] ([facility]) Tbili 0.3 mg/dL 0.2-1.0 [facility] ([facility]) Alk 49 U/L 46-116 [facility] ([facility]) TP 7.6 g/dL 6.4-8.2 [facility] ([facility]) Alb 4.2 gm/dL 3.4-5.0 [facility] ([facility]) ID Date Data Source [id number] 07/01/2020 07:06:00 AM EST [facility] ([facility]) Name Value Range Interpretation Code Description Data Lyla rce(s) Supporting Document(s) Laboratory test finding (navigational concept) 4.9 % 3.8-5.6 [facility] ([facility]) <content>Diabetic > or = to 6.5%</conten t>
<content>Prediabetes 5.7- 6.4%</content>
<content>Normal <5.7</content>
<content></content> Laboratory test finding (navigational concept) 93.9 mg/dL [facility] ([facility]) ID Date Data Source [id number] 07/01/2020 07:06:00 AM EST [facility] ([facility]) Name Value Range Interpretation Code Description Data Lyla rce(s) Supporting Document(s) Trig 94 mg/dL 0-150 [facility] ([facility]) Chol 187 mg/dL 0-200 [facility] ([facility]) CHDL 2.8 0.0-5.0 [facility] ([facility]) HDL 68 mg/dL 40-60 Above high normal [facility] ([facility]) zzzLDL 100 mg/dL 0-100 [facility] ([facility]) ID Date Data Source [id number] 07/02/2020 08:09:00 AM EST [facility] Name Value Range Interpretation Code Description Data Lyla rce(s) Supporting Document(s) VITAMIN D, 25-HYDROXY 55.6 ng/mL 30.0-100.0 [facility] Vitamin D deficiency has been defined by the [place] of[place] and an Endocrine Society practice guideline as alevel of serum 25-OH vitamin D less than 20 ng/mL (1,2).The Endocrine Society went on to further define vitamin Dinsufficiency as a level between 21 and 29 ng/mL (2).1. IOM ([place] of [employer]). 2010. Dietary reference intakes for calcium and D. [place]: The National Academies Press.2. Orin Lema, Cesar CORDOBA, et al. Evaluation, treatment, and prevention of vitamin D deficiency: an Endocrine Society clinical practice guideline. JCEM. 2010; 96(7):1911- 30.Performed at: RN - [facility] [address] [id number] Director: Jeannette Sutton MD, Phone: [phone] ID Date Data Source [id number] 07/02/2020 08:06:00 AM EST [facility] Name Value Range Interpretation Code Description Data Lyla rce(s) Supporting Document(s) Vitamin D, 25-Hydroxy 55.6 ng/mL 30.0-100.0 [facility] Vitamin D deficiency has been defined by the [place] of[place] and an Endocrine Society practice guideline as alevel of serum 25-OH vitamin D less than 20 ng/mL (1,2).The Endocrine Society went on to further define vitamin Dinsufficiency as a level between 21 and 29 ng/mL (2).1. IOM ([place] [employer]). 2010. Dietary reference intakes for calcium and D. [place]: The National Academies Press.2. Gadiel SALAZAR, Orin VAUGHN, Cesar CORDOBA, et al. Evaluation, treatment, and prevention of vitamin D deficiency: an Endocrine Society clinical practice guideline. JCEM. 2010; 96(7):1911-30. ID Date Data Source [id number] 07/01/2020 07:57:00 AM EST [facility] FAX [phone] Name Value Range Interpretation Code Description Data Lyla rce(s) Supporting Document(s) TSH 1.739 uIU/mL 0.36-3.74 [facility] ID Date Data Source [id number] 07/01/2020 07:53:00 AM EST [facility] FAX [phone] Name Value Range Interpretation Code Description Data Lyla rce(s) Supporting Document(s) CHOLESTEROL 187 mg/dL 0-200 [facility] TRIGLYCERIDES 94 mg/dL 0-150 [facility] LDL CHOLESTEROL 100 mg/dL 0-100 [facility] HDL CHOLESTEROL 68 mg/dL 40-60 H [facility] CHOL/HDL RATIO 2.8 0.0-5.0 [facility] ID Date Data Source [id number] 07/01/2020 07:53:00 AM [facility] FAX [phone] Name Value Range Interpretation Code Description Data Lyla rce(s) Supporting Document(s) GLUCOSE 91 mg/dL 74-106 [facility] BLOOD UREA NITROGEN 23 mg/dL 7-[address] [facility] ital CREATININE 1.01 mg/dL 0.6-1.0 H [facility] SODIUM 140 mmol/L 136-145 [facility] POTASSIUM 3.9 mmol/L 3.5-5.1 [facility] CHLORIDE 105 mmol/L 98-107 [facility] CO2 24 mmol/L 21-32 [facility] CALCIUM 9.5 mg/dL 8.5-10.1 [facility] ANION GAP 11.0 mmol/L 5-12 [facility] GLOMERULAR FILTRATION RATE 59 mL/min [facility] GFR IS CALCULATED IN mL/min/1.73m2 MAITE L FUNCTION: >90MILDLY DECREASED: 60-89MILDY TO MODERATELY DECREASED: 45-59 MODERATELY TO SEVERELY DECREASED: 30-44SEVERELY DECREASED: 15-29RENAL FAILURE: <15 AST 13 U/L 15-37 L [facility] ALT 21 U/L 12-78 [facility] ALKALINE PHOSPHATASE 49 U/L 46-116 [facility] TOTAL BILIRUBIN 0.3 mg/dL 0.2-1.0 [facility] TOTAL PROTEIN 7.6 g/dl 6.4-8.2 [facility] [facility] ALBUMIN 4.2 gm/dL 3.4-5.0 [facility] ID Date Data Source [id number] 07/01/2020 07:49:00 AM [facility] FAX [phone] Name Value Range Interpretation Code Description Data Lyla rce(s) Supporting Document(s) HGBA1C 4.9 % 3.8-5.6 [facility] Diabetic > or = to 6.5%Prediabetes 5.7-6 .4%Normal <5.7 ESTIMATED AVERAGE GLUCOSE 93.9 mg/dL [facility] ID Date Data Source [id number] 07/01/2020 07:26:00 AM [facility] FAX [phone] Name Value Range Interpretation Code Description Data Lyla rce(s) Supporting Document(s) WHITE BLOOD COUNT 5.0 K/mm3 4.0[facility]10.[address] [facility]LOOD [facility] 4.46 M/mm3 4.00-5.50 [facility] HEMOGLOBIN 13.9 gm/dL 12.0-16.0 [facility] HEMATOCRIT 40.6 % 36.0-48.8 [facility] MEAN CELL VOLUME 91.0 fl 80-96 [facility] MEAN CORPUSCULAR HEMOGLOBIN 31.2 pg 27.0-31.0 H [facility] MEAN CORPUSCULAR HGB CONC 34.2 g/dl 32.0-36.0 [facility] RED CELL DISTRIBUTION WIDTH 14.1 % 10.0-14.5 [facility] PLATELET COUNT 264 K/mm3 172-450 [facility] MEAN PLATELET VOLUME 9.9 fl 9.0-13.0 [facility] pital GRAN % 42.7 % 50-80.0 L [facility] IG% 0.2 % 0.0-0.2 [facility] LYMPH % 43.5 % 25.0-50.0 [facility] MONO % 8.0 % 2.0-10.0 [facility] EOS % 5.2 % 0-5.0 H [facility] BASO % 0.4 % 0.0-2.0 [facility] GRAN # 2.2 K/mm3 2.0-8.00 [facility] IG# 0.0 K/mm3 0.0-0.2 [facility] LYMPH # 2.2 K/mm3 1.0-5.0 [facility] MONO # 0.4 K/mm3 0.10-1.20 [facility] EOS # 0.3 K/mm3 0.0-0.5 [facility] BASO # 0.0 K/mm3 0.0-0.2 [facility] ID Date Data Source [id number] 06/15/2020 10:31:00 AM EST [facility] ([facility]) Name Value Range Interpretation Code Description Data Lyla rce(s) Supporting Document(s) Laboratory test finding (navigational concept) Laboratory test result [facility] ([facility]) No further treatment necessary Laboratory test finding (navigational concept) Laboratory test result [facility] ([facility]) No further treatment necessary Procedure Social History Code Duration Value Status Description Data Source(s ) Smoking 01/25/2021 12:00:00 AM EDT Patient is a former smoker completed Patient is a former smoker [facility] ([facility]) Alcohol intake 03/20/2020 12:00:00 AM EDT Yes completed [facility] Smoking 03/20/2020 12:00:00 AM EDT Former smoker completed Former smoker [facility] Vital Signs ID Date Data Source UNK Name Value Range Interpretation Code Description Data Source(s) Diastolic blood pressure 83 mm[Hg] 83 mm[Hg] [facility] ([facility]) Body height 64 [in_i] 64 [in_i] [facility] ([facility]) 5'4" Body weight 176.00 [lb_av] 176.00 [lb_av] [facility]) Systolic blood pressure 132 mm[Hg] 132 mm[Hg] M [facility] ([facility]) Body mass index (BMI) [Ratio] 30.2 kg/m2 30.2 k g/m2 [facility] ([facility]) [place] body weight 120 [lb_av] 120 [lb_av] [facility] ([facility]) Body weight 79.834 kg 79.834 kg [facility] ([facility]) Body surface area Derived from formula 1.85 m2 1.85 m2 [facility] ([facility]) Body height 64.1 [in_i] 64.1 [in_i] [facility] ([facility]) 5'4.10" Heart rate 84 /min 84 /min [facility] ([facility]) Systolic blood pressure 130 mm[Hg] 130 mm[Hg] M [facility] ([facility]) Diastolic blood pressure 90 mm[Hg] 90 mm[Hg] [facility] ([facility]) Body weight 177.50 [lb_av] 177.50 [lb_av] [facility] ([facility]) Body mass index (BMI) [Ratio] 30.4 kg/m2 30.4 k g/m2 [facility] ([facility]) Respiratory rate 14 /min 14 /min [facility] ( [facility]) Body temperature 97.2 [degF] 97.2 [degF] [facility] ([facility]) Oxygen saturation in Arterial blood by Pulse oximetry 99 % 99 % [facility] ([facility]) [place] body weight 120 [lb_av] 120 [lb_av] [facility] ([facility]) Body temperature 97.9 [degF] 97.9 [degF] [facility] ([facility]) Systolic blood pressure 112 mm[Hg] 112 mm[Hg] M [facility] ([facility]) Diastolic blood pressure 82 mm[Hg] 82 mm[Hg] [facility] ([facility]) Body height 64.1 [in_i] 64.1 [in_i] [facility] ([facility]) 5'4.10" Body weight 174.00 [lb_av] 174.00 [lb_av] [facility] ([facility]) Body mass index (BMI) [Ratio] 29.8 kg/m2 29.8 k g/m2 [facility] ([facility]) Heart rate 81 /min 81 /min [facility] ([facility]) Respiratory rate 20 /min 20 /min [facility] ( [facility]) Oxygen saturation in Arterial blood by Pulse oximetry 98 % 98 % [facility] ([facility]) [place] body weight 120 [lb_av] 120 [lb_av] [facility] ([facility]) Body weight 173.00 [lb_av] 173.00 [lb_av] [facility] ([facility]) Systolic blood pressure 124 mm[Hg] 124 mm[Hg] [facility] ([facility]) Diastolic blood pressure 82 mm[Hg] 82 mm[Hg] [facility] ([facility]) Body height 64.1 [in_i] 64.1 [in_i] [facility] ([facility]) 5'4.10" Heart rate 73 /min 73 /min [facility] ([facility]) Body mass index (BMI) [Ratio] 29.6 kg/m2 29.6 k g/m2 [facility] ([facility]) Body temperature 97.0 [degF] 97.0 [degF] [facility] ([facility]) Oxygen saturation in Arterial blood by Pulse oximetry 98 % 98 % [facility] ([facility]) [place] body weight 120 [lb_av] 120 [lb_av] [facility] ([facility]) Systolic blood pressure 130 mm[Hg] 130 mm[Hg] [facility] ([facility]) Diastolic blood pressure 80 mm[Hg] 80 mm[Hg] [facility] ([facility]) Body height 64.1 [in_i] 64.1 [in_i] [facility] ([facility]) 5'4.10" Heart rate 87 /min 87 /min [facility] ([facility]) Respiratory rate 14 /min 14 /min [facility] ( [facility]) Body temperature 97.6 [degF] 97.6 [degF] [facility] ([facility]) Oxygen saturation in Arterial blood by Pulse oximetry 98 % 98 % [facility] ([facility]) [place] body weight 120 [lb_av] 120 [lb_av] [facility] ([facility]) Systolic blood pressure 140 mm[Hg] 140 mm[Hg] [facility] ([facility]) Diastolic blood pressure 80 mm[Hg] 80 mm[Hg] [facility] ([facility]) Body height 64.1 [in_i] 64.1 [in_i] [facility] ([facility]) 5'4.10" Body weight 175.00 [lb_av] 175.00 [lb_av] [facility] ([facility]) Body mass index (BMI) [Ratio] 29.9 kg/m2 29.9 k g/m2 [facility] ([facility]) Heart rate 90 /min 90 /min [facility] ([facility]) Respiratory rate 12 /min 12 /min [facility] ( [facility]) Body temperature 98.4 [degF] 98.4 [degF] [facility] ([facility]) Oxygen saturation in Arterial blood by Pulse oximetry 98 % 98 % [facility] ([facility]) [place] body weight 120 [lb_av] 120 [lb_av] [facility] ([facility]) Body weight 175.00 [lb_av] 175.00 [lb_av] [facility] ([facility]) Respiratory rate 15 /min 15 /min [facility] ( [facility]) Body height 63 [in_i] 63 [in_i] [facility] ([facility]) 5'3" Body mass index (BMI) [Ratio] 31.0 kg/m2 31.0 k g/m2 [facility] ([facility]) Systolic blood pressure 126 mm[Hg] 126 mm[Hg] [facility] ([facility]) Diastolic blood pressure 70 mm[Hg] 70 mm[Hg] [facility] ([facility]) Body weight 167.00 [lb_av] 167.00 [lb_av] [facility] ([facility]) Respiratory rate 18 /min 18 /min [facility] ( [facility]) Systolic blood pressure 122 mm[Hg] 122 mm[Hg] [facility] ([facility]) Diastolic blood pressure 76 mm[Hg] 76 mm[Hg] [facility] ([facility]) Body height 64.1 [in_i] 64.1 [in_i] [facility] ([facility]) 5'4.10" Body weight 172.25 [lb_av] 172.25 [lb_av] [facility] ([facility]) Body mass index (BMI) [Ratio] 29.5 kg/m2 29.5 k g/m2 [facility] ([facility]) Heart rate 88 /min 88 /min [facility] ([facility]) Respiratory rate 18 /min 18 /min [facility] ( [facility]) Body temperature 98.3 [degF] 98.3 [degF] [facility] ([facility]) Oxygen saturation in Arterial blood by Pulse oximetry 99 % 99 % [facility] ([facility]) [place] body weight 120 [lb_av] 120 [lb_av] [facility] ([facility]) Systolic blood pressure 118 mm[Hg] 118 mm[Hg] [facility] Diastolic blood pressure 74 mm[Hg] 74 mm[Hg] [facility] Heart rate 68 /min 68 /min [facility] Respiratory rate 16 /min 16 /min [facility] Body height 162.6 cm 162.6 cm [facility] Body weight 77.111 kg 77.111 kg [facility] Body mass index (BMI) [Ratio] 29.18 kg/m2 29.18 kg/m2 [facility] Systolic blood pressure 132 mm[Hg] 132 mm[Hg] [facility] ([facility]) Diastolic blood pressure 72 mm[Hg] 72 mm[Hg] [facility] ([facility]) Body height 64.1 [in_i] 64.1 [in_i] [facility] ([facility]) 5'4.10" Body weight 180.00 [lb_av] 180.00 [lb_av] [facility] ([facility]) Body mass index (BMI) [Ratio] 30.8 kg/m2 30.8 k g/m2 [facility] ([facility]) Heart rate 93 /min 93 /min [facility] ([facility]) Respiratory rate 18 /min 18 /min [facility] ( [facility]) Body temperature 98.4 [degF] 98.4 [degF] [facility] ([facility]) Oxygen saturation in Arterial blood by Pulse oximetry 97 % 97 % [facility] ([facility]) [place] body weight 120 [lb_av] 120 [lb_av] [facility] ([facility]) Systolic blood pressure 120 mm[Hg] 120 mm[Hg] [facility] ([facility]) Body mass index (BMI) [Ratio] 32.7 kg/m2 32.7 k g/m2 [facility] ([facility]) Heart rate 67 /min 67 /min [facility] ([facility]) [place] body weight 120 [lb_av] 120 [lb_av] [facility] ([facility]) Diastolic blood pressure 74 mm[Hg] 74 mm[Hg] [facility] ([facility]) Body height 64.1 [in_i] 64.1 [in_i] [facility] ([facility]) 5'4.10" Body weight 191.00 [lb_av] 191.00 [lb_av] [facility] ([facility]) Respiratory rate 18 /min 18 /min [facility] Body temperature 98.0 [degF] 98.0 [degF] [facility] ([facility]) Oxygen saturation in Arterial blood by Pulse oximetry 98 % 98 % [facility] ([facility]) Patient Treatment Plan of Care Planned Activity Planned Date Details Description Data Source (s) 12 HR Bupropion Hydrochloride 150 MG Extended Release Oral Tablet 09/19/2020 12:00:00 AM EDT [facility] Erythromycin 0.02 MG/MG Topical Gel 09/06/2020 12:00:00 AM EDT [facility] ezetimibe 10 MG Oral Tablet 09/03/2020 12:00:00 AM EDT [facility] 24 HR Nicotine 0.875 MG/HR Transdermal Patch 08/06/2020 12:00:00 AM EST [facility] Azelastine HCl 137 MCG/SPRAY SOLN 07/06/2020 12:00:00 AM EST [facility] tramadol hydrochloride 50 MG Oral Tablet 03/09/2020 12:00:00 AM EDT [facility] Naproxen 500 MG Oral Tablet 02/14/2020 12:00:00 AM EDT [facility] pitavastatin 2 MG Oral Tablet [Livalo] 02/14/2020 12:00:00 AM EDT [facility] Clobetasol Propionate 0.5 MG/ML Topical Foam 05/29/2017 12:00:00 AM EST [facility] Crisaborole (EUCRISA) 2 % OINT [facility]
[2021-04-29] MEDS ORDERED: LIDOCAINE 2% 100MG/5ML SDV (FOR ANES.) As Ordered ONE (12:22)
[2021-04-29] MEDS ORDERED: propofoL 200 MG/20 ML VIAL As Ordered ONE ×2 (12:22→13:13)
--- NOTE | 2021-04-29 12:49 | ROOR ---
Patient Name: Ricarda Austin Procedure Date: 04/29/2021 12:35 PM Date of : 1970 Age: 51 Room: [facility] Gender: Female Note Status: Finalized Procedure: Upper GI endoscopy Indications: Epigastric abdominal pain, Nausea with vomiting Providers: Damian Merino MD Referring MD: Shae FULTON DO Requesting Provider: Medicines: Monitored Anesthesia Care Complications: No immediate complications. Procedure: Pre-Anesthesia Assessment: - The heart rate, respiratory rate, oxygen saturations, blood pressure, adequacy of pulmonary ventilation, and response to care were monitored throughout the procedure. The Endoscope was introduced through the mouth, and advanced to the second part of duodenum. The upper GI endoscopy was accomplished without difficulty. The patient tolerated the procedure well. Findings: The esophagus was normal. The stomach was normal. The examined duodenum was normal. Biopsies were taken with a cold forceps in the gastric antrum for Helicobacter pylori testing. Impression: - Normal esophagus. - Normal stomach. - Normal examined duodenum. - Biopsies were taken with a cold forceps for Helicobacter pylori testing. Recommendation: - Await pathology results. - Continue present medications. Procedure Code(s): --- Professional --- 10483, Esophagogastroduodenoscopy, flexible, transoral; with biopsy, single or multiple Diagnosis Code(s): --- Professional --- R11.2, Nausea with vomiting, unspecified R10.13, Epigastric pain CPT copyright 2019 [employer]. All rights reserved. The codes documented in this report are preliminary and upon engravings polisher review may be revised to meet current compliance requirements. Damian Merino MD Damian Merino MD 04/29/2021 12:49:11 PM Electronically signed by Damian Merino MD Number of Addenda: 0 Note Initiated On: 04/29/2021 12:35 PM Estimated Blood Loss: Estimated blood loss: none.
--- NOTE | 2021-04-29 13:11 | ROOR ---
Patient Name: Ricarda Austin Procedure Date: 04/29/2021 12:36 PM Date of : 1970 Age: 51 Room: [facility] Gender: Female Note Status: Finalized Procedure: Colonoscopy Indications: Generalized abdominal pain, Iron deficiency anemia Providers: Damian Merino MD Referring MD: Shae FULTON DO Requesting Provider: Medicines: Monitored Anesthesia Care Complications: No immediate complications. Procedure: Pre-Anesthesia Assessment: - The heart rate, respiratory rate, oxygen saturations, blood pressure, adequacy of pulmonary ventilation, and response to care were monitored throughout the procedure. The Colonoscope was introduced through the anus and advanced to 10 cm into the ileum. The colonoscopy was performed without difficulty. The patient tolerated the procedure well. The quality of the bowel preparation was good. Findings: The perianal and digital rectal examinations were normal. Three sessile polyps were found in the rectum, sigmoid colon and ascending colon. The polyps were 4 to 5 mm in size. These polyps were removed with a cold snare. Resection and retrieval were complete. Multiple small and large-mouthed diverticula were found in the sigmoid colon. Small Internal Hemorrhoids. The exam was otherwise without abnormality. Impression: - Three 4 to 5 mm polyps in the rectum, in the sigmoid colon and in the ascending colon, removed with a cold snare. Resected and retrieved. - Diverticulosis in the sigmoid colon. - Small Internal Hemorrhoids. - The examination was otherwise normal. Recommendation: - Repeat colonoscopy in 5 years for surveillance. - Return to my office at the next available appointment. - To discuss todays findings, my office will call you in the next few days to schedule a follow up appointment. Procedure Code(s): --- Professional --- 42817, Colonoscopy, flexible; with removal of tumor(s), polyp(s), or other lesion(s) by snare technique Diagnosis Code(s): --- Professional --- K57.30, Diverticulosis of large intestine without perforation or abscess without bleeding D50.9, Iron deficiency anemia, unspecified R10.84, Generalized abdominal pain K63.5, Polyp of colon K62.1, Rectal polyp CPT copyright 2019 [employer]. All rights reserved. The codes documented in this report are preliminary and upon lead retail sales associate review may be revised to meet current compliance requirements. Damian Merino MD Damian Merino MD 04/29/2021 1:11:23 PM Electronically signed by Damian Merino MD Number of Addenda: 0 Note Initiated On: 04/29/2021 12:36 PM Estimated Blood Loss: Estimated blood loss: none.
[2021-04-29 13:30] VITALS: BP 140/85
== END 2021-04-29 13:46 | disposition home or self-care (01) ==
LOC: M OPP 10:56
PROVIDERS: ATTEND Internal Medicine Gastroenterology
DX: R10.84 Generalized abdominal pain (principal); D50.9 Iron deficiency anemia, unspecified; K63.5 Polyp of colon; K62.1 Rectal polyp; K57.30 Diverticulosis of large intestine without perforation or abscess without bleeding; K64.8 Other hemorrhoids; R11.2 Nausea with vomiting, unspecified; R10.13 Epigastric pain

== ENCOUNTER → 2021-05-02 | Outpatient (CLI) | payer BC ==
[~2021-05-02] MED LIST changes: -NS 1,000 ML IV ONE; +PROHANCE 279.3MG/ML 15ML VIAL ONE
--- NOTE | 2021-05-02 11:05 | REP ---
INDICATION: ABNORMAL FINDING OF IMAGING-NEOPLASM. COMPARISON: Prior CT 04/08/2021 reviewed. No prior MRIs for comparison. TECHNIQUE: Pre and post contrast 3T MRI of the liver was performed utilizing various sequences. Gadolinium utilized: 15 cc ProHance FINDINGS: There are multiple sub cm sized T2 hyper signal foci seen throughout the liver all of which maintain there are T2 hyper signal intensity throughout the T2 echo train. All foci are of T1 prolongation as well. The dominant lesion seen in the posterior segment of the right lobe of the liver which measures 1.5 cm is less T2 hyperintense than the aforementioned smaller foci and exhibits peripheral nodular enhancement on the dynamic enhanced images until there is complete homogeneous enhancement. There is no evidence of intrahepatic ductal dilatation. Although not specifically performed as an MRCP MIP reformatted images of the CBD show maximal dimension of 9 mm. There is cholelithiasis. There are multiple bilateral renal cysts and a left renal calcification as seen on the prior CT. The spleen, pancreas, and adrenal glands are within normal limits. There is no evidence of free fluid. The cortical marrow signal seen throughout the osseous structures is within normal limits. IMPRESSION: 1. Multiple sub cm sized hepatic cysts and a 1.5 cm sized hepatic hemangioma as described above. 2. Bilateral renal cysts and a left renal calculus as seen on the CT of 04/08/2021. 3. Cholelithiasis. 4. Mild CBD dilatation as described above. Etiology uncertain. Follow-up is recommended. 5. Other findings as described above. <Electronically signed by Enrrique Pritchard > 05/02/21 [id number]
== END ==
LOC: M PLAIMG 07:42
PROVIDERS: ATTEND Internal Medicine Gastroenterology
DX: R93.2 Abnormal findings on diagnostic imaging of liver and biliary tract (principal); D37.6 Neoplasm of uncertain behavior of liver, gallbladder and bile ducts

== ENCOUNTER → 2021-05-19 | Outpatient (CLI) | payer BC ==
[~2021-05-19] MED LIST changes: -PROHANCE 279.3MG/ML 15ML VIAL ONE
[2021-05-19 08:54] LABS: ALBUMIN 3.6 GM/DL (3.2-5.2); ALT/SGPT 31 U/L (12-78); BILIRUBIN,DIRECT < 0.1 MG/DL (0.0-0.2); BILIRUBIN,TOTAL 0.2 MG/DL (0.2-1.0); BLOOD UREA NITROGEN 19 MG/DL (7-18); CREATININE FOR GFR 0.94 MG/DL (0.55-1.30); GLOMERULAR FILTRATION RATE > 60.0 (>58); TOTAL PROTEIN 7.4 GM/DL (6.4-8.2)
--- NOTE | 2021-05-19 09:38 | REP ---
INDICATION: MRCP. COMPARISON: CT 04/08/2021, MRI 05/02/2021. TECHNIQUE: Multiple heavily T2 weighted sequences are obtained in the axial and coronal planes. 3D MIP reconstruction images are performed. FINDINGS: The liver is mildly enlarged with a length of approximately 19 cm. Multiple hyperintense nodules are visualized once again on T2 weighted imaging, better evaluated on the MRI of 05/02/2021 and representing small cysts and hemangiomas. Multiple gallstones are seen in the gallbladder measuring up to about 1.8 cm in diameter. There is no gallbladder wall edema. There is no intrahepatic biliary dilatation. There is no gross intrahepatic biliary stricture and no focal dilatation. Common bile duct is mildly dilated and has a maximum diameter of approximately 9 mm. There is no evidence of choledocholithiasis or CBD stricture. Pancreatic duct is normal in caliber. The spleen, adrenals, and pancreas are grossly unremarkable. Bilateral renal cysts are again noted. I see no adenopathy or free fluid in the abdomen. IMPRESSION: Mild hepatomegaly. Multiple cysts and hemangiomas again visualized in the liver, and bilateral renal cysts. There is cholelithiasis without evidence of gallbladder wall edema. The common bile duct is mildly dilated at 9 mm, with no evidence of choledocholithiasis or biliary stricture.No intrahepatic biliary dilatation. <Electronically signed by Greg Lacy > 05/19/21 [id number]
== END ==
LOC: M RAD 06:27 → M LAB 06:27
PROVIDERS: ATTEND Internal Medicine Gastroenterology
DX: R93.2 Abnormal findings on diagnostic imaging of liver and biliary tract (principal)

== ENCOUNTER → 2021-06-29 | Outpatient (CLI) | payer BC ==
[2021-06-29 15:14] LABS: EOS # 0.2 10^3/uL (0.0-0.5); EOS % 4.3 % (0.0-3.0); HEMATOCRIT 40.5 % (36.0-47.0); HEMOGLOBIN 13.5 g/dl (12.0-15.5); LYMPH # 1.6 10^3/uL (1.5-5.0); LYMPH % 39.6 % (24.0-44.0); MEAN CORPUSCULAR HGB CONC 33.3 g/dl (32.0-36.5); MONO # 0.4 10^3/uL (0.0-0.8); MONO % 10.4 % (2.0-8.0); NEUTROPHILS # 1.8 10^3/uL (1.5-8.5); NEUTROPHILS % 44.2 % (36.0-66.0); PLATELET COUNT, AUTOMATED 251 10^3/uL (150-450); RED BLOOD COUNT 4.22 10^6/uL (4.00-5.40); WHITE BLOOD COUNT 4.1 10^3/uL (4.0-10.0)
[2021-06-29 15:49] LABS: ERYTHROCYTE SEDIMENTATION RATE 14 mm/hr (0-20)
[2021-06-29 16:03] LABS: ALBUMIN 3.8 GM/DL (3.2-5.2); ALT/SGPT 22 U/L (12-78); BILIRUBIN,TOTAL 0.2 MG/DL (0.2-1.0); BLOOD UREA NITROGEN 12 MG/DL (7-18); CALCIUM LEVEL 9.2 MG/DL (8.5-10.1); CARBON DIOXIDE LEVEL 25 MEQ/L (21-32); CHLORIDE LEVEL 111 MEQ/L (98-107); CREATININE FOR GFR 0.88 MG/DL (0.55-1.30); GLOMERULAR FILTRATION RATE > 60.0 (>58); GLUCOSE, FASTING 81 MG/DL (70-100); POTASSIUM SERUM 4.1 MEQ/L (3.5-5.1); RHEUMATOID FACTOR QUANT < 10.0 IU/ML (<15.0); SODIUM LEVEL 141 MEQ/L (136-145); TOTAL PROTEIN 7.1 GM/DL (6.4-8.2)
== END ==
LOC: M PLALAB 14:10
PROVIDERS: ATTEND Physician Assistant
DX: M79.10 Myalgia, unspecified site (principal)

== ENCOUNTER → 2021-09-20 | Outpatient (REF) | payer BC ==
[2021-09-20 12:29] LABS: EOS # 0.2 10^3/uL (0.0-0.5); EOS % 5.7 % (0.0-3.0); HEMATOCRIT 45.2 % (36.0-47.0); HEMOGLOBIN 14.7 g/dl (12.0-15.5); LYMPH # 1.6 10^3/uL (1.5-5.0); LYMPH % 39.7 % (24.0-44.0); MEAN CORPUSCULAR HEMOGLOBIN 30.9 pg (27.0-33.0); MEAN CORPUSCULAR HGB CONC 32.5 g/dl (32.0-36.5); MEAN CORPUSCULAR VOLUME 95.2 fl (80.0-96.0); MONO # 0.4 10^3/uL (0.0-0.8); MONO % 8.9 % (2.0-8.0); NEUTROPHILS # 1.8 10^3/uL (1.5-8.5); NEUTROPHILS % 44.5 % (36.0-66.0); PLATELET COUNT, AUTOMATED 259 10^3/uL (150-450); RED BLOOD COUNT 4.75 10^6/uL (4.00-5.40)
[2021-09-20 12:31] LABS: APPEARANCE, URINE CLEAR (CLEAR); BACTERIA, URINE AUTO NEGATIVE (NEGATIVE); BILIRUBIN, URINE AUTO NEGATIVE (NEGATIVE); BLOOD, URINE BLOOD NEGATIVE (NEGATIVE); COLOR, URINE STRAW (YELLOW); GLUCOSE, URINE (UA) AUTO NEGATIVE (NEGATIVE); KETONE, URINE AUTO NEGATIVE (NEGATIVE); LEUKOCYTE ESTERASE, URINE AUTO NEGATIVE (NEGATIVE); NITRITE, URINE AUTO NEGATIVE (NEGATIVE); PROTEIN, URINE AUTO NEGATIVE (NEGATIVE); RBC, URINE AUTO 0 /HPF (0-3); SPECIFIC GRAVITY URINE AUTO 1.006 (1.002-1.035); SQUAMOUS EPITHELIAL CELL UR AU 0 /HPF (0-6); UROBILINOGEN, URINE AUTO 0.2 mg/dL (0.0-2.0); WBC, URINE AUTO 0 /HPF (0-3)
[2021-09-20 13:11] LABS: ERYTHROCYTE SEDIMENTATION RATE 5 mm/hr (0-20)
[2021-09-20 14:33] LABS: CREATININE,RANDOM URINE 17.7 MG/DL; TOTAL PROTEIN,RANDOM URINE 5.1 MG/DL (0.0-12.0)
[2021-09-20 17:16] LABS: ALBUMIN 4.4 GM/DL (3.2-5.2); ALT/SGPT 33 U/L (12-78); BILIRUBIN,TOTAL 0.5 MG/DL (0.2-1.0); BLOOD UREA NITROGEN 16 MG/DL (7-18); CALCIUM LEVEL 10.1 MG/DL (8.5-10.1); CARBON DIOXIDE LEVEL 29 MEQ/L (21-32); CHLORIDE LEVEL 104 MEQ/L (98-107); COMPLEMENT C3 130 MG/DL (90-180); COMPLEMENT C4 25 MG/DL (10-40); CREATININE FOR GFR 0.82 MG/DL (0.55-1.30); GLOMERULAR FILTRATION RATE > 60.0 (>58); GLUCOSE, FASTING 74 MG/DL (70-100); POTASSIUM SERUM 4.3 MEQ/L (3.5-5.1); SODIUM LEVEL 139 MEQ/L (136-145); TOTAL PROTEIN 8.2 GM/DL (6.4-8.2)
== END ==
LOC: M SFHCRHEU 10:58
PROVIDERS: ATTEND Internal Medicine Rheumatology
DX: R76.8 Other specified abnormal immunological findings in serum (principal); Z15.89 Genetic susceptibility to other disease; M35.3 Polymyalgia rheumatica; H04.123 Dry eye syndrome of bilateral lacrimal glands

== ENCOUNTER → 2021-09-29 | Outpatient (CLI) | payer BC | LOC: M RAD 14:31 | PROVIDERS: ATTEND Family Medicine | DX: M19.90 Unspecified osteoarthritis, unspecified site (principal) ==

== ENCOUNTER → 2021-10-27 | Outpatient (CLI) | payer BC | LOC: M SLEEP HO 12:01 | PROVIDERS: ATTEND Family Medicine | DX: R06.83 Snoring (principal) ==

== ENCOUNTER → 2021-11-10 | Outpatient (CLI) | payer BC ==
[~2021-11-10] MED LIST changes: +PROHANCE 279.3MG/ML 15ML VIAL As Ordered ONE; +PROHANCE 279.3MG/ML 5ML VIAL As Ordered ONE
== END ==
LOC: M RAD 09:06
PROVIDERS: ATTEND Otolaryngology
DX: D37.030 Neoplasm of uncertain behavior of the parotid salivary glands (principal)
CPT/HCPCS: 70543; A9576

== ENCOUNTER → 2021-11-14 | Outpatient (CLI) | payer BC ==
[~2021-11-14] MED LIST changes: -PROHANCE 279.3MG/ML 15ML VIAL As Ordered ONE; -PROHANCE 279.3MG/ML 5ML VIAL As Ordered ONE
== END ==
LOC: M WHC 12:30
PROVIDERS: ATTEND Family Medicine
DX: Z12.31 Encounter for screening mammogram for malignant neoplasm of breast (principal)

== ENCOUNTER → 2021-11-25 | Outpatient (CLI) | payer BC ==
[~2021-11-25] MED LIST changes: +ISOVUE-370 76% 100ML VIAL As Ordered ONE
== END ==
LOC: M RAD 14:00
PROVIDERS: ATTEND Otolaryngology
DX: D37.030 Neoplasm of uncertain behavior of the parotid salivary glands (principal)
CPT/HCPCS: 70491; Q9967

== ENCOUNTER → 2021-12-01 | Outpatient (REF) | payer BC ==
[~2021-12-01] MED LIST changes: -ISOVUE-370 76% 100ML VIAL As Ordered ONE
== END ==
LOC: M LAB REF 17:18
PROVIDERS: ATTEND Otolaryngology
DX: M35.00 Sjogren syndrome, unspecified (principal)

== ENCOUNTER → 2021-12-22 | Outpatient (CLI) | payer BC ==
[2021-12-22 15:33] LABS: APPEARANCE, URINE CLEAR (CLEAR); BACTERIA, URINE AUTO NEGATIVE (NEGATIVE); BILIRUBIN, URINE AUTO NEGATIVE (NEGATIVE); BLOOD, URINE BLOOD NEGATIVE (NEGATIVE); COLOR, URINE YELLOW (YELLOW); GLUCOSE, URINE (UA) AUTO NEGATIVE (NEGATIVE); KETONE, URINE AUTO TRACE mg/dL (NEGATIVE); LEUKOCYTE ESTERASE, URINE AUTO NEGATIVE (NEGATIVE); NITRITE, URINE AUTO NEGATIVE (NEGATIVE); PROTEIN, URINE AUTO NEGATIVE (NEGATIVE); RBC, URINE AUTO 0 /HPF (0-3); SPECIFIC GRAVITY URINE AUTO 1.015 (1.002-1.035); SQUAMOUS EPITHELIAL CELL UR AU 0 /HPF (0-6); UROBILINOGEN, URINE AUTO 0.2 mg/dL (0.0-2.0); WBC, URINE AUTO 1 /HPF (0-3)
[2021-12-22 15:34] LABS: BASO % 0.8 % (0.0-1.0); EOS # 0.2 10^3/uL (0.0-0.5); HEMATOCRIT 42.9 % (36.0-47.0); HEMOGLOBIN 14.4 g/dl (12.0-15.5); LYMPH # 1.2 10^3/uL (1.5-5.0); LYMPH % 31.7 % (24.0-44.0); MEAN CORPUSCULAR HEMOGLOBIN 31.4 pg (27.0-33.0); MEAN CORPUSCULAR HGB CONC 33.6 g/dl (32.0-36.5); MEAN CORPUSCULAR VOLUME 93.7 fl (80.0-96.0); MONO # 0.4 10^3/uL (0.0-0.8); MONO % 10.3 % (2.0-8.0); NEUTROPHILS # 1.9 10^3/uL (1.5-8.5); NEUTROPHILS % 50.9 % (36.0-66.0); PLATELET COUNT, AUTOMATED 252 10^3/uL (150-450); RED BLOOD COUNT 4.58 10^6/uL (4.00-5.40); WHITE BLOOD COUNT 3.7 10^3/uL (4.0-10.0)
[2021-12-22 15:42] LABS: ALBUMIN 4.2 GM/DL (3.2-5.2); ALT/SGPT 37 U/L (12-78); BILIRUBIN,TOTAL 0.4 MG/DL (0.2-1.0); BLOOD UREA NITROGEN 15 MG/DL (7-18); CALCIUM LEVEL 9.3 MG/DL (8.5-10.1); CARBON DIOXIDE LEVEL 24 MEQ/L (21-32); CHLORIDE LEVEL 113 MEQ/L (98-107); CREATININE FOR GFR 0.83 MG/DL (0.55-1.30); GLOMERULAR FILTRATION RATE > 60.0 (>58); GLUCOSE, FASTING 88 MG/DL (70-100); POTASSIUM SERUM 4.1 MEQ/L (3.5-5.1); SODIUM LEVEL 140 MEQ/L (136-145); TOTAL PROTEIN 7.7 GM/DL (6.4-8.2)
[2021-12-22 15:43] LABS: TOTAL PROTEIN,RANDOM URINE 16.8 MG/DL (0.0-12.0)
[2021-12-22 16:14] LABS: TOTAL 25(OH) VITAMIN D 56.5 NG/ML (30.0-100.0)
[2021-12-22 16:25] LABS: ERYTHROCYTE SEDIMENTATION RATE 15 mm/hr (0-20)
[2021-12-22 17:05] LABS: COMPLEMENT C3 132 MG/DL (90-180); COMPLEMENT C4 26 MG/DL (10-40)
== END ==
LOC: M PLALAB 12:10
PROVIDERS: ATTEND Internal Medicine Rheumatology
DX: H04.123 Dry eye syndrome of bilateral lacrimal glands (principal); R76.8 Other specified abnormal immunological findings in serum; M35.3 Polymyalgia rheumatica; Z15.89 Genetic susceptibility to other disease

== ENCOUNTER → 2021-12-22 | Outpatient (CLI) | payer BC ==
[2021-12-22 15:33] LABS: BASO % 0.8 % (0.0-1.0); EOS # 0.2 10^3/uL (0.0-0.5); EOS % 5.2 % (0.0-3.0); HEMATOCRIT 43.1 % (36.0-47.0); HEMOGLOBIN 14.3 g/dl (12.0-15.5); LYMPH # 1.2 10^3/uL (1.5-5.0); LYMPH % 32.1 % (24.0-44.0); MEAN CORPUSCULAR HEMOGLOBIN 31.1 pg (27.0-33.0); MEAN CORPUSCULAR HGB CONC 33.2 g/dl (32.0-36.5); MEAN CORPUSCULAR VOLUME 93.7 fl (80.0-96.0); MONO # 0.4 10^3/uL (0.0-0.8); MONO % 9.6 % (2.0-8.0); NEUTROPHILS # 1.9 10^3/uL (1.5-8.5); NEUTROPHILS % 52.3 % (36.0-66.0); PLATELET COUNT, AUTOMATED 253 10^3/uL (150-450); WHITE BLOOD COUNT 3.7 10^3/uL (4.0-10.0)
[2021-12-22 15:47] LABS: ALBUMIN 4.1 GM/DL (3.2-5.2); ALT/SGPT 37 U/L (12-78); BILIRUBIN,TOTAL 0.3 MG/DL (0.2-1.0); BLOOD UREA NITROGEN 14 MG/DL (7-18); CALCIUM LEVEL 9.2 MG/DL (8.5-10.1); CARBON DIOXIDE LEVEL 24 MEQ/L (21-32); CHLORIDE LEVEL 113 MEQ/L (98-107); CHOLESTEROL LEVEL 214 MG/DL (<200); CHOLESTEROL RISK RATIO 2.972 (<5); CREATININE FOR GFR 0.88 MG/DL (0.55-1.30); FREE T4 1.35 NG/DL (0.76-1.46); GLOMERULAR FILTRATION RATE > 60.0 (>58); GLUCOSE, FASTING 86 MG/DL (70-100); HDL CHOLESTEROL 72 MG/DL (>40); LDL CHOLESTEROL 125 MG/DL (<100); NON-HDL-C 142 MG/DL; POTASSIUM SERUM 4.4 MEQ/L (3.5-5.1); SODIUM LEVEL 141 MEQ/L (136-145); THYROID STIMULATING HORMONE 0.447 uIU/ML (0.358-3.740); TOTAL PROTEIN 7.8 GM/DL (6.4-8.2); TRIGLYCERIDES LEVEL 87 MG/DL (<150)
[2021-12-22 16:14] LABS: TOTAL 25(OH) VITAMIN D 54.7 NG/ML (30.0-100.0)
== END ==
LOC: M PLALAB 12:15
PROVIDERS: ATTEND Family Medicine
DX: E78.00 Pure hypercholesterolemia, unspecified (principal)

== ENCOUNTER → 2022-01-25 | Outpatient (CLI) | payer BC ==
[2022-01-25 12:05] LABS: BASO # 0.1 10^3/uL (0.0-0.2); BASO % 1.3 % (0.0-1.0); EOS # 0.3 10^3/uL (0.0-0.5); EOS % 5.4 % (0.0-3.0); HEMATOCRIT 42.5 % (36.0-47.0); HEMOGLOBIN 14.1 g/dl (12.0-15.5); LYMPH # 1.6 10^3/uL (1.5-5.0); LYMPH % 33.7 % (24.0-44.0); MEAN CORPUSCULAR HEMOGLOBIN 31.3 pg (27.0-33.0); MEAN CORPUSCULAR HGB CONC 33.2 g/dl (32.0-36.5); MEAN CORPUSCULAR VOLUME 94.4 fl (80.0-96.0); MONO # 0.4 10^3/uL (0.0-0.8); MONO % 8.8 % (2.0-8.0); NEUTROPHILS # 2.4 10^3/uL (1.5-8.5); NEUTROPHILS % 50.4 % (36.0-66.0); PLATELET COUNT, AUTOMATED 256 10^3/uL (150-450); WHITE BLOOD COUNT 4.7 10^3/uL (4.0-10.0)
[2022-01-25 13:06] LABS: ALT/SGPT 20 U/L (12-78); BLOOD UREA NITROGEN 11 MG/DL (7-18); CALCIUM LEVEL 9.6 MG/DL (8.5-10.1); CARBON DIOXIDE LEVEL 24 MEQ/L (21-32); CHLORIDE LEVEL 113 MEQ/L (98-107); CREATININE FOR GFR 0.83 MG/DL (0.55-1.30); GLOMERULAR FILTRATION RATE > 60.0 (>58); GLUCOSE, FASTING 94 MG/DL (70-100); POTASSIUM SERUM 3.9 MEQ/L (3.5-5.1); SODIUM LEVEL 140 MEQ/L (136-145)
[2022-01-25 13:07] LABS: ALBUMIN 3.8 GM/DL (3.2-5.2); AMYLASE 60 U/L (25-115); BILIRUBIN,TOTAL 0.3 MG/DL (0.2-1.0); LIPASE 167 U/L (73-393); TOTAL PROTEIN 7.2 GM/DL (6.4-8.2)
== END ==
LOC: M LAB 11:09
PROVIDERS: ATTEND Physician Assistant Medical
DX: R10.10 Upper abdominal pain, unspecified (principal)

== ENCOUNTER 2022-03-26 12:24 | Emergency (ER) | payer BC ==
[2022-03-26] MEDS ORDERED: dexameTHASONE 20MG/5ML VIAL (J1100 PER 1MG) IV ONE (13:00)
[2022-03-26 13:35] LABS: BASO % 0.6 % (0.0-1.0); EOS # 0.2 10^3/uL (0.0-0.5); EOS % 3.1 % (0.0-3.0); HEMATOCRIT 40.8 % (36.0-47.0); HEMOGLOBIN 13.8 g/dl (12.0-15.5); LYMPH # 1.8 10^3/uL (1.5-5.0); MEAN CORPUSCULAR HEMOGLOBIN 31.8 pg (27.0-33.0); MEAN CORPUSCULAR HGB CONC 33.8 g/dl (32.0-36.5); MONO # 0.4 10^3/uL (0.0-0.8); MONO % 8.6 % (2.0-8.0); NEUTROPHILS # 2.7 10^3/uL (1.5-8.5); NEUTROPHILS % 52.5 % (36.0-66.0); PLATELET COUNT, AUTOMATED 225 10^3/uL (150-450); RED BLOOD COUNT 4.34 10^6/uL (4.00-5.40); WHITE BLOOD COUNT 5.1 10^3/uL (4.0-10.0)
[2022-03-26] MEDS: COMBIVENT RESPIMAT 100-20MCG INHALER 4GM INH SCH ×3 (13:48→14:06)
[2022-03-26 13:49] LABS: INR 0.88; PROTHROMBIN TIME 12.1 SECONDS (12.5-14.5)
[2022-03-26 14:16] LABS: CPK CREATINE PHOSPHOKINASE 79 U/L (26-192)
[2022-03-26 14:27] LABS: ALBUMIN 3.6 GM/DL (3.2-5.2); ALT/SGPT 27 U/L (12-78); BILIRUBIN,DIRECT 0.1 MG/DL (0.0-0.2); BILIRUBIN,TOTAL 0.3 MG/DL (0.2-1.0); BLOOD UREA NITROGEN 10 MG/DL (7-18); CALCIUM LEVEL 9.2 MG/DL (8.5-10.1); CARBON DIOXIDE LEVEL 20 MEQ/L (21-32); CHLORIDE LEVEL 113 MEQ/L (98-107); CREATININE FOR GFR 0.89 MG/DL (0.55-1.30); FREE T4 1.33 NG/DL (0.76-1.46); GLOMERULAR FILTRATION RATE > 60.0 (>51); GLUCOSE, FASTING 83 MG/DL (70-100); LIPASE 174 U/L (73-393); NT-PRO BNP 115 PG/ML (<125); POTASSIUM SERUM 3.9 MEQ/L (3.5-5.1); SODIUM LEVEL 140 MEQ/L (136-145); THYROID STIMULATING HORMONE 0.511 uIU/ML (0.358-3.740); TOTAL PROTEIN 7.2 GM/DL (6.4-8.2)
[2022-03-26] MEDS ORDERED: ISOVUE-370 76% 100ML VIAL As Ordered ONE (14:45)
[2022-03-26 15:09] LABS: CPK CREATINE PHOSPHOKINASE 79 U/L (26-192)
[2022-03-26 16:00] VITALS: BP 129/73
[2022-03-26] MEDS ORDERED: ZITHTAB PO (17:03)
[2022-03-26] MEDS ORDERED: PRED10TA2 PO (17:03)
[2022-03-26] MEDS ORDERED: COMBAER6 INH (17:03)
[2022-03-26] MEDS ORDERED: AZITHROMYCIN 250MG TABLET PO ONE (17:05)
== END 2022-03-26 17:29 | disposition home or self-care (01) ==
LOC: M ED 12:24
DX: J45.909 Unspecified asthma, uncomplicated (principal); I45.10 Unspecified right bundle-branch block; R73.03 Prediabetes; E78.5 Hyperlipidemia, unspecified; I10 Essential (primary) hypertension; R51.9 Headache, unspecified; K21.9 Gastro-esophageal reflux disease without esophagitis; I73.9 Peripheral vascular disease, unspecified; Z98.51 Tubal ligation status; F17.200 Nicotine dependence, unspecified, uncomplicated; Z88.8 Allergy status to other drugs, medicaments and biological substances; Z79.51 Long term (current) use of inhaled steroids; Z79.899 Other long term (current) drug therapy
CPT/HCPCS: 71045; 71275; 80047; 80048; 80076; 82550; 83690; 83880; 84439; 84443; 85025; 85610; 85730; 87040; 87486; 87581; 87633; 87798; 93005; 93041; 94640; 94760; 96374; 99285; J1100; Q9967

== ENCOUNTER 2022-03-31 17:08 | Emergency (ER) | payer BC ==
[~2022-03-31 17:08] MED LIST changes: +COMBAER6 INH; +PRED10TA2 PO; +ZITHTAB PO
[2022-03-31 17:55] LABS: BASO % 0.3 % (0.0-1.0); EOS % 0.1 % (0.0-3.0); HEMATOCRIT 40.6 % (36.0-47.0); HEMOGLOBIN 13.9 g/dl (12.0-15.5); LYMPH # 0.9 10^3/uL (1.5-5.0); LYMPH % 12.3 % (24.0-44.0); MEAN CORPUSCULAR HEMOGLOBIN 31.4 pg (27.0-33.0); MEAN CORPUSCULAR HGB CONC 34.2 g/dl (32.0-36.5); MEAN CORPUSCULAR VOLUME 91.9 fl (80.0-96.0); MONO # 0.2 10^3/uL (0.0-0.8); NEUTROPHILS # 6.4 10^3/uL (1.5-8.5); NEUTROPHILS % 83.8 % (36.0-66.0); PLATELET COUNT, AUTOMATED 271 10^3/uL (150-450); RED BLOOD COUNT 4.42 10^6/uL (4.00-5.40); WHITE BLOOD COUNT 7.7 10^3/uL (4.0-10.0)
[2022-03-31 18:29] LABS: CK-MB VALUE MASS < 1.0 NG/ML (<3.6); CPK CREATINE PHOSPHOKINASE 50 U/L (26-192)
[2022-03-31 18:35] LABS: ALBUMIN 3.7 GM/DL (3.2-5.2); ALT/SGPT 25 U/L (12-78); BILIRUBIN,DIRECT 0.1 MG/DL (0.0-0.2); BILIRUBIN,TOTAL 0.3 MG/DL (0.2-1.0); BLOOD UREA NITROGEN 13 MG/DL (7-18); CALCIUM LEVEL 9.2 MG/DL (8.5-10.1); CARBON DIOXIDE LEVEL 18 MEQ/L (21-32); CHLORIDE LEVEL 113 MEQ/L (98-107); CREATININE FOR GFR 0.94 MG/DL (0.55-1.30); GLOMERULAR FILTRATION RATE > 60.0 (>51); GLUCOSE, FASTING 108 MG/DL (70-100); NT-PRO BNP 208 PG/ML (<125); POTASSIUM SERUM 3.7 MEQ/L (3.5-5.1); SODIUM LEVEL 140 MEQ/L (136-145); THYROID STIMULATING HORMONE 0.788 uIU/ML (0.358-3.740); THYROXINE (T4) 8.9 UG/DL (4.5-12.0); TOTAL PROTEIN 7.6 GM/DL (6.4-8.2)
[2022-03-31 19:39] LABS: CK-MB VALUE MASS < 1.0 NG/ML (<3.6); CPK CREATINE PHOSPHOKINASE 47 U/L (26-192); MB/CK RELATIVE INDEX 2.13 (< OR =4)
[2022-03-31 19:47] VITALS: O2SAT 97
[2022-03-31 20:15] VITALS: BP 123/65
== END 2022-03-31 20:32 | disposition home or self-care (01) ==
LOC: M ED 17:08
DX: J45.909 Unspecified asthma, uncomplicated (principal); I45.10 Unspecified right bundle-branch block; I10 Essential (primary) hypertension; K21.9 Gastro-esophageal reflux disease without esophagitis; Z95.5 Presence of coronary angioplasty implant and graft; Z88.8 Allergy status to other drugs, medicaments and biological substances; Z91.018 Allergy to other foods; Z79.51 Long term (current) use of inhaled steroids; Z79.899 Other long term (current) drug therapy

== ENCOUNTER → 2022-05-03 | Outpatient (CLI) | payer BC ==
[~2022-05-03] MED LIST changes: +PROHANCE 279.3MG/ML 15ML VIAL ONE; +PROHANCE 279.3MG/ML 5ML VIAL ONE
== END ==
LOC: M PLAIMG 09:11
PROVIDERS: ATTEND Physician Assistant Medical
DX: R93.2 Abnormal findings on diagnostic imaging of liver and biliary tract (principal); D18.03 Hemangioma of intra-abdominal structures; K80.20 Calculus of gallbladder without cholecystitis without obstruction
CPT/HCPCS: 74183; A9576

== ENCOUNTER → 2022-05-23 | Outpatient (CLI) | payer BC ==
[~2022-05-23] MED LIST changes: -PROHANCE 279.3MG/ML 15ML VIAL ONE; -PROHANCE 279.3MG/ML 5ML VIAL ONE
== END ==
LOC: M RAD 14:20
PROVIDERS: ATTEND Nurse Practitioner Adult Health
DX: D41.02 Neoplasm of uncertain behavior of left kidney (principal)

== ENCOUNTER → 2022-05-30 | Outpatient (CLI) | payer BC ==
[2022-05-30 15:14] LABS: ALBUMIN 3.9 G/DL (3.2-5.2); BILIRUBIN,DIRECT 0.1 MG/DL (<0.4); BILIRUBIN,TOTAL 0.3 MG/DL (0.3-1.2); TOTAL PROTEIN 6.8 G/DL (5.7-8.2)
[2022-05-30 15:33] LABS: CA19-9 TUMOR MARKER,CARBOHYDRA 22.3 U/ML (<35.0)
== END ==
LOC: M LAB 13:52
PROVIDERS: ATTEND Physician Assistant Medical
DX: R93.2 Abnormal findings on diagnostic imaging of liver and biliary tract (principal)

== ENCOUNTER → 2022-06-07 | Outpatient (CLI) | payer BC | LOC: M CARPUL 12:23 | PROVIDERS: ATTEND Internal Medicine Pulmonary Disease | DX: R06.02 Shortness of breath (principal) ==

== ENCOUNTER → 2022-06-13 | Outpatient (CLI) | payer BC ==
[~2022-06-13] MED LIST changes: +METHACHOLINE KIT INH ONE
== END ==
LOC: M CARPUL 12:34
PROVIDERS: ATTEND Internal Medicine Pulmonary Disease
DX: R06.02 Shortness of breath (principal)
CPT/HCPCS: 94070; 95070; J7674

== ENCOUNTER → 2022-07-13 | Outpatient (CLI) | payer BC ==
[~2022-07-13] MED LIST changes: +ISOVUE-370 76% 100ML VIAL As Ordered ONE; -METHACHOLINE KIT INH ONE
== END ==
LOC: M RAD 13:55
PROVIDERS: ATTEND Otolaryngology
DX: D37.030 Neoplasm of uncertain behavior of the parotid salivary glands (principal)

== ENCOUNTER → 2022-08-24 | Outpatient (CLI) | payer BC ==
[~2022-08-24] MED LIST changes: -ISOVUE-370 76% 100ML VIAL As Ordered ONE
== END ==
LOC: M LABSMTC 11:25
PROVIDERS: ATTEND Anesthesiology
DX: Z01.818 Encounter for other preprocedural examination (principal); Z11.52 Encounter for screening for COVID-19

== ENCOUNTER 2022-08-29 11:58 | Day surgery (SDC) | payer BC ==
[~2022-08-29] VITALS: Ht 160 cm; Wt 93.8 kg
[~2022-08-29 11:58] MED LIST changes: +ALBU8.5H; +NASA1SPR NARES; +TRIA1CR80
[2022-08-29] MEDS ORDERED: LR 1,000 ML IV SCH (12:50)
[2022-08-29] MEDS ORDERED: propofoL 200 MG/20 ML VIAL As Ordered ONE (13:06)
[2022-08-29] MEDS ORDERED: SUGAMMADEX SODIUM 500 MG/5 ML VIAL (BRIDION) As Ordered ONE (13:06)
[2022-08-29] MEDS ORDERED: ROCURONIUM BROMIDE 50MG/5ML VIAL As Ordered ONE (13:06)
[2022-08-29] MEDS ORDERED: LIDOCAINE 2% 100MG/5ML SDV (FOR ANES.) As Ordered ONE (13:06)
[2022-08-29] MEDS ORDERED: ONDANSETRON 4MG 2ML VIAL As Ordered ONE (13:08)
[2022-08-29] MEDS ORDERED: MIDAZOLAM INJ 2MG/2ML VIAL As Ordered ONE (13:10)
[2022-08-29] MEDS ORDERED: fentaNYL 100 MCG/2 ML INJECTION As Ordered ONE (13:10)
[2022-08-29] MEDS ORDERED: ESMOLOL INJ 100MG/10ML VIAL As Ordered ONE (13:13)
[2022-08-29] MEDS ORDERED: TRIAMCINOLONE ACETONIDE SUSP 40MG/ML 1ML VIAL As Ordered ONE ×2 (14:28→15:21)
[2022-08-29 17:06] VITALS: BP 116/72
== END 2022-08-29 17:25 | disposition home or self-care (01) ==
LOC: M SDC 11:58
PROVIDERS: ATTEND Otolaryngology
DX: K11.23 Chronic sialoadenitis (principal); I10 Essential (primary) hypertension; E78.00 Pure hypercholesterolemia, unspecified; R73.03 Prediabetes; K58.9 Irritable bowel syndrome, unspecified; K21.9 Gastro-esophageal reflux disease without esophagitis; I99.9 Unspecified disorder of circulatory system; M19.90 Unspecified osteoarthritis, unspecified site; M79.7 Fibromyalgia; F41.9 Anxiety disorder, unspecified; G43.909 Migraine, unspecified, not intractable, without status migrainosus; F17.290 Nicotine dependence, other tobacco product, uncomplicated; Z88.8 Allergy status to other drugs, medicaments and biological substances; Z88.1 Allergy status to other antibiotic agents; Z91.018 Allergy to other foods; Z79.899 Other long term (current) drug therapy; Z79.891 Long term (current) use of opiate analgesic
CPT/HCPCS: 42699; J1100; J2250; J2405; J3010; J3301

== ENCOUNTER → 2022-09-06 | Outpatient (CLI) | payer BC ==
[2022-09-06 15:05] LABS: APPEARANCE, URINE CLEAR (CLEAR); BACTERIA, URINE AUTO NEGATIVE (NEGATIVE); BILIRUBIN, URINE AUTO NEGATIVE (NEGATIVE); BLOOD, URINE BLOOD NEGATIVE (NEGATIVE); COLOR, URINE STRAW (YELLOW); GLUCOSE, URINE (UA) AUTO NEGATIVE (NEGATIVE); KETONE, URINE AUTO NEGATIVE (NEGATIVE); LEUKOCYTE ESTERASE, URINE AUTO NEGATIVE (NEGATIVE); NITRITE, URINE AUTO NEGATIVE (NEGATIVE); PROTEIN, URINE AUTO NEGATIVE (NEGATIVE); RBC, URINE AUTO 0 /HPF (0-3); SQUAMOUS EPITHELIAL CELL UR AU 0 /HPF (0-6); UROBILINOGEN, URINE AUTO 0.2 mg/dL (0.0-2.0); WBC, URINE AUTO 0 /HPF (0-3)
[2022-09-06 15:20] LABS: BASO # 0.1 10^3/uL (0.0-0.2); BASO % 0.9 % (0.0-1.0); EOS # 0.2 10^3/uL (0.0-0.5); EOS % 2.9 % (0.0-3.0); HEMATOCRIT 43.2 % (36.0-47.0); HEMOGLOBIN 14.5 g/dl (12.0-15.5); LYMPH # 2.1 10^3/uL (1.5-5.0); LYMPH % 31.5 % (24.0-44.0); MEAN CORPUSCULAR HEMOGLOBIN 31.3 pg (27.0-33.0); MEAN CORPUSCULAR HGB CONC 33.6 g/dl (32.0-36.5); MEAN CORPUSCULAR VOLUME 93.1 fl (80.0-96.0); MONO # 0.7 10^3/uL (0.0-0.8); MONO % 10.1 % (2.0-8.0); NEUTROPHILS # 3.6 10^3/uL (1.5-8.5); NEUTROPHILS % 54.1 % (36.0-66.0); PLATELET COUNT, AUTOMATED 295 10^3/uL (150-450); RED BLOOD COUNT 4.64 10^6/uL (4.00-5.40); WHITE BLOOD COUNT 6.6 10^3/uL (4.0-10.0)
[2022-09-06 15:40] LABS: ALBUMIN 3.9 G/DL (3.2-5.2); ALKALINE PHOSPHATASE 63 U/L (46-116); ALT/SGPT 23 U/L (7.0-40); AST/SGOT 18 U/L (<34); BILIRUBIN,TOTAL 0.3 MG/DL (0.3-1.2); BLOOD UREA NITROGEN 14 MG/DL (9-23); CALCIUM LEVEL 9.3 MG/DL (8.5-10.1); CARBON DIOXIDE LEVEL 26 MMOL/L (20-31); CHLORIDE LEVEL 107 MMOL/L (98-107); CREATININE FOR GFR 0.78 MG/DL (0.55-1.30); GLOMERULAR FILTRATION RATE > 60.0 (>51); GLUCOSE, FASTING 80 MG/DL (60-100); POTASSIUM SERUM 4.4 MMOL/L (3.5-5.1); SODIUM LEVEL 139 MMOL/L (136-145); TOTAL PROTEIN 7.2 G/DL (5.7-8.2)
[2022-09-06 15:40] LABS: CREATININE,RANDOM URINE 41.2 MG/DL; TOTAL PROTEIN,RANDOM URINE < 6.0 MG/DL (0.0-14.0)
[2022-09-06 15:41] LABS: COMPLEMENT C3 155.3 MG/DL (90.0-170.0); COMPLEMENT C4 35.4 MG/DL (12-36)
[2022-09-06 15:54] LABS: ERYTHROCYTE SEDIMENTATION RATE 34 mm/hr (0-30)
== END ==
LOC: M LAB 14:29
PROVIDERS: ATTEND Internal Medicine Rheumatology
DX: M35.9 Systemic involvement of connective tissue, unspecified (principal); R76.8 Other specified abnormal immunological findings in serum; H04.123 Dry eye syndrome of bilateral lacrimal glands; Z15.89 Genetic susceptibility to other disease

== ENCOUNTER → 2022-09-19 | Outpatient (REF) | payer BC ==
[2022-09-19 17:03] LABS: C REACTIVE PROTEIN QUANTITATIV < 0.40 MG/DL (<1.0); LDH LACTATE DEHYDROGENASE 168 U/L (120-246)
[2022-09-19 17:04] LABS: CPK CREATINE PHOSPHOKINASE 69 U/L (34-145)
[2022-09-19 17:24] LABS: HEPATITIS B SURFACE ANTIGEN NEGATIVE (NEGATIVE)
[2022-09-19 17:46] LABS: HEPATITIS B CORE ANTIBODY IGM NEGATIVE (NEGATIVE); HEPATITIS C VIRUS ABY INDEX 0.1 INDEX (<0.8)
== END ==
LOC: M SFHCRHEU 12:09
PROVIDERS: ATTEND Internal Medicine Rheumatology
DX: M35.9 Systemic involvement of connective tissue, unspecified (principal); R76.8 Other specified abnormal immunological findings in serum; M35.3 Polymyalgia rheumatica; H04.123 Dry eye syndrome of bilateral lacrimal glands; Z15.89 Genetic susceptibility to other disease

== ENCOUNTER → 2022-10-27 | Outpatient (CLI) | payer BC | LOC: M RAD 06:50 | PROVIDERS: ATTEND Internal Medicine Pulmonary Disease | DX: R91.8 Other nonspecific abnormal finding of lung field (principal) ==

== ENCOUNTER → 2022-11-07 | Outpatient (CLI) | payer BC | LOC: M RAD 06:27 | PROVIDERS: ATTEND Nurse Practitioner Adult Health | DX: D41.02 Neoplasm of uncertain behavior of left kidney (principal) ==

== ENCOUNTER → 2022-11-23 | Outpatient (REF) | payer BC | LOC: M SFHCRHEU 15:36 | PROVIDERS: ATTEND Internal Medicine Rheumatology | DX: Z53.9 Procedure and treatment not carried out, unspecified reason (principal) ==

== ENCOUNTER → 2023-01-29 | Outpatient (CLI) | payer BC | LOC: M RAD 07:21 | PROVIDERS: ATTEND Surgery Vascular Surgery | DX: I73.9 Peripheral vascular disease, unspecified (principal) ==

== ENCOUNTER → 2023-03-23 | Outpatient (CLI) | payer BC | LOC: M CARPUL 09:20 | PROVIDERS: ATTEND Nurse Practitioner Family | DX: I71.21 Aneurysm of the ascending aorta, without rupture (principal) ==

== ENCOUNTER → 2023-03-27 | Outpatient (CLI) | payer BC | LOC: M PLAIMG 06:37 | PROVIDERS: ATTEND Internal Medicine Rheumatology | DX: M35.9 Systemic involvement of connective tissue, unspecified (principal) ==

== ENCOUNTER → 2023-05-16 | Outpatient (REF) | payer BC | LOC: M SFHCRHEU 10:49 | PROVIDERS: ATTEND Internal Medicine Rheumatology | DX: M35.9 Systemic involvement of connective tissue, unspecified (principal); R76.8 Other specified abnormal immunological findings in serum; M35.3 Polymyalgia rheumatica; H04.123 Dry eye syndrome of bilateral lacrimal glands; Z15.89 Genetic susceptibility to other disease ==

== ENCOUNTER → 2023-12-19 | Outpatient (CLI) | payer BC ==
[~2023-12-19] MED LIST changes: +IRBE300T25 PO; -IRBE300T7 PO
== END ==
LOC: M RAD 14:26
PROVIDERS: ATTEND Internal Medicine Pulmonary Disease
DX: F17.218 Nicotine dependence, cigarettes, with other nicotine-induced disorders (principal)

== ENCOUNTER → 2024-01-03 | Outpatient (CLI) | payer BC ==
[~2024-01-03] MED LIST changes: +ISOVUE-370 76% 100ML VIAL As Ordered ONE
== END ==
LOC: M RAD 10:29
PROVIDERS: ATTEND Surgery Vascular Surgery
DX: I70.90 Unspecified atherosclerosis (principal)
CPT/HCPCS: 75635; Q9967

== ENCOUNTER → 2024-02-06 | Outpatient (CLI) | payer BC ==
[~2024-02-06] MED LIST changes: -ISOVUE-370 76% 100ML VIAL As Ordered ONE
== END ==
LOC: M PLAIMG 06:35
PROVIDERS: ATTEND Physician Assistant
DX: K76.89 Other specified diseases of liver (principal); Q45.3 Other congenital malformations of pancreas and pancreatic duct; K76.0 Fatty (change of) liver, not elsewhere classified; K80.20 Calculus of gallbladder without cholecystitis without obstruction

== ENCOUNTER → 2024-02-13 | Outpatient (CLI) | payer BC ==
[~2024-02-13] MED LIST changes: +PROHANCE 279.3MG/ML 15ML VIAL ONE; +PROHANCE 279.3MG/ML 5ML VIAL ONE
== END ==
LOC: M PLAIMG 07:31
PROVIDERS: ATTEND Ophthalmology
DX: H53.2 Diplopia (principal)

== ENCOUNTER → 2024-09-08 | Outpatient (CLI) | payer BC ==
[~2024-09-08] MED LIST changes: +ISOVUE-370 76% 100ML VIAL As Ordered ONE; -PROHANCE 279.3MG/ML 15ML VIAL ONE; -PROHANCE 279.3MG/ML 5ML VIAL ONE
== END ==
LOC: M RAD 12:26
PROVIDERS: ATTEND Nurse Practitioner Adult Health
DX: K56.609 Unspecified intestinal obstruction, unspecified as to partial versus complete obstruction (principal)
CPT/HCPCS: 74177; Q9967

== ENCOUNTER → 2024-12-18 | Outpatient (REF) | payer BC ==
[~2024-12-18] MED LIST changes: +ASPI325T48 PO; +BRIN10TA4 PO; +DULO1CAP4 PO; +DUPI300I; +ECOT81TA5 PO; +FOLI1TAB11 PO; +IMIT50TA PO; -ISOVUE-370 76% 100ML VIAL As Ordered ONE; +MELO15TA28 PO; +METH2.5T48 PO; +REPA140I SC; +ROPI0.5T33 PO; +TIZA10TA PO
== END ==
LOC: M SFHCRHEU 09:19
PROVIDERS: ATTEND Internal Medicine Rheumatology
DX: Z53.9 Procedure and treatment not carried out, unspecified reason (principal)

== ENCOUNTER → 2025-01-29 | Outpatient (CLI) | payer BC | LOC: M RAD 14:45 | PROVIDERS: ATTEND Internal Medicine Pulmonary Disease | DX: Z12.2 Encounter for screening for malignant neoplasm of respiratory organs (principal); Z87.891 Personal history of nicotine dependence; J84.9 Interstitial pulmonary disease, unspecified; I70.0 Atherosclerosis of aorta ==

== ENCOUNTER → 2025-03-25 | Outpatient (CLI) | payer BC ==
[~2025-03-25] MED LIST changes: -EZET10TA21 PO; +EZET10TA57 PO
== END ==
LOC: M SLEEP HO 12:12
PROVIDERS: ATTEND Nurse Practitioner Adult Health
DX: R06.83 Snoring (principal)
CPT/HCPCS: 78264; A9541; G0399

== ENCOUNTER → 2025-03-25 | Outpatient (CLI) | payer BC | LOC: M RAD 10:02 | PROVIDERS: ATTEND Internal Medicine Gastroenterology | DX: K31.84 Gastroparesis (principal) | CPT/HCPCS: 78264; A9541 ==